=== PATIENT | male | born 1945 | race Caucasian/White ===

== ENCOUNTER → 2018-09-17 | Outpatient (CLI) | payer MEDICARE, BC ==
--- NOTE | 2018-09-17 12:39 | XR ---
EXAMINATION TYPE: XR chest 2V DATE OF EXAM: 09/17/2018 COMPARISON: None INDICATION: Pain right upper chest due to coughing TECHNIQUE: Frontal and lateral views of the chest are obtained. FINDINGS: There is a 0.6 cm density within the periphery of the right midlung may represent small granuloma. Co nfirmation of stability over the course of 2 years is recommended. A faint density may be at the lef t lung base. Summation shadow, nipple shadow, pleural plaque, or intraparenchymal density is not excl uded. Follow-up chest x-ray in 3 months is recommended. No pneumothorax is evident. Heart size is normal. Pulmonary vasculature is normal. No displaced rib fractures are evident. IMPRESSION: 1. No acute process identified. 2. Small nodule within additional left basilar density of uncertain significance. Short-term follow-u p chest x-ray in 3 months is recommended.
--- NOTE | 2018-09-17 12:40 | XR ---
EXAMINATION TYPE: XR ribs RT DATE OF EXAM: 09/17/2018 COMPARISON: Chest x-ray same date HISTORY: Chest pain with coughing TECHNIQUE: 2 view right ribs FINDINGS: No acute displaced fractures are evident. No pneumothorax is evident. Suspected granuloma w ithin the right peripheral lung may be present. IMPRESSION: 1. No acute rib abnormality
== END | disposition home or self-care (01) ==
LOC: RADXRMAIN 11:40
PROVIDERS: ATTEND Internal Medicine
DX: R91.1 Solitary pulmonary nodule (principal); R07.9 Chest pain, unspecified
CPT/HCPCS: 71046

== ENCOUNTER → 2018-10-02 | Outpatient (CLI) | payer MEDICARE, BC ==
--- NOTE | 2018-10-03 04:43 | CT ---
EXAMINATION TYPE: CT chest w con DATE OF EXAM: 10/02/2018 COMPARISON: Radiograph 09/17/2018 HISTORY: 73-year-old male abnormal findings chest xray TECHNIQUE: Contiguous axial scanning of the chest after the administration of 100 mL of Isovue 300. Coronal/sagittal reconstructions performed. CT DLP: 730mGycm. Automatic exposure control utilized for a dose reduction. FINDINGS: Heart normal size with trace anterior basilar pericardial fluid. Coronary vessel calcifications are p resent. Aorta normal caliber with pooling configuration to the aortic arch. A few nonenlarged mediastinal lymph nodes are demonstrated. No thoracic lymphadenopathy by CT size cr iteria. Small calcified right infrahilar lymph nodes are noted. Mild diffuse bronchial wall thickening. The questioned right mid lung nodule on radiographs correspon ds to a calcified granuloma An additional tiny calcified granuloma at the peripheral left base may correspond to the second radio graphic nodule. No suspicious pulmonary nodule or mass is identified. Prominent dependent atelectasis posterior lung bases. There may be mild underlying interstitial fibro tic change. Noncalcified 4 mm peripheral right basilar pulmonary nodule, axial image 38 to be reassessed at [facility]. No consolidation or pleural effusion. There is a small hiatal hernia. There is a pulsion diverticulum along the right lateral aspect of the lower esophagus measuring 2.8 cm and filled with debris. Visualized upper abdomen shows a calcified granuloma posterior liver and scattered within the spleen with a tiny hilar splenule. Bones: There is some bony irregularity along the lateral aspect of the fourth right rib that may repr esent old posttraumatic sequela. There is a slightly expansile, lytic lesion within the right pedicle, lamina, and transverse process of T4, refer to sagittal image 60 and axial image 17. IMPRESSION: 1. Slightly expansile, lytic lesion within the right posterior elements of T4. Metastatic disease nee ds to be excluded. Correlate with appropriate further oncologic workup. 2. Some bony irregularity involving the lateral aspect of the fourth right-sided rib could represent chronic posttraumatic sequela or a second subtle lesion. 3. Mild diffuse bronchial wall thickening suggests bronchitis or chronic asthma. There is prior granu lomatous disease with the questioned pulmonary nodule seen on 09/17/2018 radiographs corresponding to calcified granulomas. 4. A 4 mm noncalcified right basilar pulmonary nodule is nonspecific and should be reassessed at [facility] ow-up. 5. Small hiatal hernia. There appears to be a 2.8 cm debris-filled pulsion diverticulum along the rig ht lateral aspect of the lower esophagus. Consider direct visualization.
== END | disposition home or self-care (01) ==
LOC: RADCTMAIN 15:59
PROVIDERS: ATTEND Internal Medicine
DX: M95.4 Acquired deformity of chest and rib (principal); K44.9 Diaphragmatic hernia without obstruction or gangrene; R91.8 Other nonspecific abnormal finding of lung field; R91.1 Solitary pulmonary nodule
CPT/HCPCS: 82565; 84520; 71260; 36415; Q9967

== ENCOUNTER → 2018-11-08 | Outpatient (CLI) | payer MEDICARE, BC ==
--- NOTE | 2018-11-08 14:06 | NM ---
EXAMINATION TYPE: NM bone scan whole body DATE OF EXAM: 11/08/2018 COMPARISON: NONE HISTORY: Abnormal findings of outside imaging per order. Recent abnormal CT. Back pain per patient. Delayed whole-body scanning was performed following the injection of 23.2 mCi Tc 99m MDP. Images acq uired 3 hours post injection. Whole body images as well as additional images of the head and thorax a bdomen and pelvis in multiple projections are acquired. FINDINGS: No suspicious radiotracer uptake at area of clinical concern right T4 posterior elements but area rem ains suspicious and is noted lytic. Increased radiotracer uptake right anterolateral third or fourth rib correlates with CT suspicion for healing nondisplaced rib fracture. Also identified subtle increased radiotracer uptake posterior lat eral right ninth rib presumed healing nondisplaced fracture without definitive corresponding lesion o n CT. Lucency from right hip arthroplasty is present. Mild symmetric increased uptake bilateral knee joints likely reflects product of degenerative change. IMPRESSION: As above. Lytic lesion does not show increased radiotracer uptake but remain suspicious f or myeloma or lytic metastatic disease. Clinical correlation recommended. Healing nondisplaced right- sided rib fractures are suspected.
--- NOTE | 2018-11-08 14:26 | XR ---
EXAMINATION TYPE: XR orbit complete bilateral DATE OF EXAM: 11/08/2018 COMPARISON: NONE HISTORY: History of torn retina with possible scleral buckle, pre-MRI study. TECHNIQUE: Complete orbital with Pace and Sosa as well as true lateral projection obtained. FINDINGS: No suspicious metallic intraorbital foreign body is seen to prevent MRI study on images obt ained. IMPRESSION: As above.
== END | disposition home or self-care (01) ==
LOC: RADNMMAIN 09:46
PROVIDERS: ATTEND Internal Medicine Hematology & Oncology
DX: M89.8X8 Other specified disorders of bone, other site (principal); R93.89 Abnormal findings on diagnostic imaging of other specified body structures; Z71.3 Dietary counseling and surveillance
CPT/HCPCS: 70200; 78306; A9503

== ENCOUNTER → 2018-11-08 | Outpatient (CLI) | payer MEDICARE, BC ==
--- NOTE | 2018-11-09 07:55 | MR ---
EXAMINATION TYPE: MR thoracic spine wo/w con DATE OF EXAM: 11/08/2018 COMPARISON: CT chest October 02, 2018. Same day whole body bone scan. HISTORY: Back pain, abnormal imaging on pacs TECHNIQUE: Multiplanar, multisequence imaging of thoracic spine is performed without contrast FINDINGS: Spinal cord shows normal course, caliber, and signal as it courses the thoracic spine. Ve rtebral body heights and alignment are satisfactory. Disc space heights are maintained. No suspiciou s large posterior disc herniations are seen on sagittal images. Corresponding to CT there is expansil e lesion of diminished T1 signal and slight increased T2 signal involving right lateral elements with posterior extension at T4 level showing homogeneous enhancement on postcontrast images seen best sag ittal image 6 through 15. No definitive additional bony lesions are present which correlates with CT. Review of the axial images confirms expansile enhancing right T4 lesion involving the pedicle and lat eral elements including transverse process extending into the posterior lamina with mass effect along the lateral margin of the spinal canal on axial image 10. There is tiny left paracentral disc protrusion mildly effacing anterolateral thecal sac at T4-T5 leve l on axial image 8. There is tiny left paracentral disc protrusion mildly effacing anterior thecal sa c at T5-T6 level on axial image 4. There are mild early facet degenerative changes in the lower thora cic spine with ligamentum flavum hypertrophy also seen. Visualized portion of upper abdomen and thora x show no suspicious abnormality. Dependent atelectasis is seen in both lower lungs. IMPRESSION: Confirmation of suspicious expansile enhancing osseous lesion centered right T4 lateral e lements with some mass effect on the lateral margin of spinal canal. Consider lytic metastatic disea se or myeloma involvement. Clinical correlation advised.
== END | disposition home or self-care (01) ==
LOC: RADMRIMAIN 15:37
PROVIDERS: ATTEND Internal Medicine Hematology & Oncology
DX: M89.9 Disorder of bone, unspecified (principal); M53.9 Dorsopathy, unspecified
CPT/HCPCS: 72157; A9585

== ENCOUNTER → 2018-11-16 | Outpatient (CLI) | payer MEDICARE, BC ==
--- NOTE | 2018-11-19 11:06 | PE ---
Nuclear medicine PET/CT HISTORY: Multiple myeloma, initial correlation chest CT 10/02/2018, MR thoracic spine 11/08/2017 Patient received 11.5 mCi F-18 FDG intravenously in delayed scanning was performed through the body. Localization and attenuation correction CT was performed. Neck and chest: No suspicious adenopathy. Calcified subpleural nodule present in the right lower lobe , there are calcified right hilar nodes consistent with old granulomatous disease. There is diverticu lum noted in the distal esophagus to the right midline as on prior CT likely containing secretions or food. Coronary calcifications are present. ABDOMEN: Calcification is seen within the spleen. No retroperitoneal adenopathy. Small hiatal hernia noted. No suspicious hypermetabolic uptake. Diverticular change noted in the sigmoid colon. Streak ar tifact noted from patient's right hip prosthesis. Aorta shows atheromatous change. Osseous structures: Anterior third with associated hypermetabolic uptake, SUV 3.4, there is expansile lesion and suggestion of some local abnormal soft tissue, rib shows a probable pathologic fracture. Suspect possible lucency in the lateral mass effect C2. The lytic lesion at T4 does not show associat ed hypermetabolic uptake. There is a rib fracture on the right at T9 posterior laterally without defi nite hypermetabolic uptake. Suspect small punched-out lesions in several ribs without associated hype rmetabolic uptake. Possible posterior rib fractures on the left fifth rib, sixth rib, seventh rib. Ly tic appearance present at the spinous process of L3. IMPRESSION: Findings compatible with patient's history of multiple myeloma. Additional findings above .
== END | disposition home or self-care (01) ==
LOC: RADPETMAIN 16:46
PROVIDERS: ATTEND Internal Medicine Hematology & Oncology
DX: C90.00 Multiple myeloma not having achieved remission (principal); R91.1 Solitary pulmonary nodule; K22.5 Diverticulum of esophagus, acquired; D73.89 Other diseases of spleen; K44.9 Diaphragmatic hernia without obstruction or gangrene; I70.0 Atherosclerosis of aorta; S22.31XA Fracture of one rib, right side, initial encounter for closed fracture; R93.5 Abnormal findings on diagnostic imaging of other abdominal regions, including retroperitoneum
CPT/HCPCS: 78816; A9552

== ENCOUNTER 2018-11-18 05:58 | Day surgery (SDC) | payer MEDICARE, BC ==
[2018-11-15 09:52] VITALS: BMI 31.6
[~2018-11-18 05:58] MED LIST: LIDOCAINE 1% 20 ML VIAL (10MG/ML) FOR IV START INTRADERMA PRN
[2018-11-18 06:30] VITALS: RESP 18; TEMP 97.3
[2018-11-18 06:44] LABS: Glucose,Whole Blood 130 mg/dL (75-99)
[2018-11-18] MEDS: LACTATED RINGERS 1,000 ML IV SCH ×2 (06:46→07:05)
[2018-11-18] MEDS ORDERED: PROPOFOL 10 MG/ML 20 ML VIAL IV ONE (07:07)
[2018-11-18] MEDS ORDERED: LIDOCAINE 2% INJ 20 MG/ML SQ ONE (07:15)
[2018-11-18] MEDS ORDERED: IV FLUID CONTINUATION 1,000 ML IV ONE (07:28)
[2018-11-18 08:11] VITALS: BP 125/77; PULSE 64
[2018-11-18 08:12] LABS: Basophils % (A) 0 %; Eosinophils # (A) 0.1 k/uL (0-0.7); Eosinophils % (A) 3 %; HGB 12.8 gm/dL (13.0-17.5); Lymphocytes % (A) 52 %; MCH 32.6 pg (25.0-35.0); MCHC 33.8 g/dL (31.0-37.0); MCV 96.3 fL (80.0-100.0); Mean Platelet Volume 8.4; Monocytes # (A) 0.2 k/uL (0-1.0); Monocytes % (A) 6 %; Neutrophils # (A) 1.5 k/uL (1.3-7.7); Neutrophils % (A) 37 %; Platelet Count 194 k/uL (150-450); RBC 3.94 m/uL (4.30-5.90); RDW 14.1 % (11.5-15.5); WBC 3.9 k/uL (3.8-10.6)
--- NOTE | 2018-11-18 08:37 | PCN ---
PROCEDURE NOTE PROCEDURE: Bone marrow aspirate and biopsy. INDICATION: Initial diagnosis of multiple myeloma. After obtaining consent from the patient, the procedure was performed in the endoscopy suite and anesthesia performed by anesthesia team. The patient was put in left lateral decubitus position. The right posterior superior iliac crest was localized. Skin was cleansed with ChloraPrep, all sterile procedures were followed, Two mL of 1% lidocaine was used for local Xylocaine was used for local anesthetic, 100 needed inserted 15 mL of aspirate and about 1.5 cm core biopsy was obtained without any difficulties. Patient tolerated the procedure very well without any immediate complications. MMODL / IJN: [id number] /
== END 2018-11-18 08:12 | disposition home or self-care (01) ==
LOC: OR 05:58
PROVIDERS: ATTEND Internal Medicine Hematology & Oncology
DX: C90.00 Multiple myeloma not having achieved remission (principal); D64.9 Anemia, unspecified; I10 Essential (primary) hypertension; Z79.82 Long term (current) use of aspirin; Z79.899 Other long term (current) drug therapy; Z96.641 Presence of right artificial hip joint; Z87.891 Personal history of nicotine dependence
CPT/HCPCS: 85025; 38222; J2001; J2704

== ENCOUNTER → 2018-12-16 | Outpatient (CLI) | payer MEDICARE, BC ==
--- NOTE | 2018-12-16 11:05 | US ---
EXAMINATION TYPE: US venous doppler duplex UE LT DATE OF EXAM: 12/16/2018 COMPARISON: NONE CLINICAL HISTORY: R22.32 Left upper arm swelling. Pain and edema left lower arm for 2 days SIDE PERFORMED: left Left Arm: No evidence of DVT as visualized Grayscale, color doppler, spectral doppler imaging performed of the deep veins of the left upper extr emity. There is normal flow, compressibility and vascular waveforms. IMPRESSION: No evidence of acute deep or superficial venous thrombosis in the left upper extremity.
== END | disposition home or self-care (01) ==
LOC: RADUSWWP 10:06
PROVIDERS: ATTEND Internal Medicine Hematology & Oncology
DX: R22.32 Localized swelling, mass and lump, left upper limb (principal)

== ENCOUNTER → 2021-01-14 | Outpatient (CLI) | payer MEDICARE ==
--- NOTE | 2021-01-17 07:03 | PE ---
EXAMINATION TYPE: PET CT fusion skull to thigh DATE OF EXAM: 01/14/2021 COMPARISON: Prior PET/CT November 16, 2018 HISTORY: Multiple myeloma currently on chemotherapy. Involvement in the ribs and T2 spine with radi ation treatment. TECHNIQUE: Following the intravenous administration of 9.89 mCi of F-18 FDG, whole body images are p erformed from the skull base to the bottom of feet. Images are reviewed on the computer in the coron al, axial, and sagittal planes. Reconstructed rotating images are created on independent workstation and reviewed on the computer. A localization and attenuation correction CT is performed in conjunc tion with the PET scan. Blood glucose level equals 97. SCAN: Subsequent Scan FINDINGS: SKULL BASE AND NECK: No new areas of abnormal hypermetabolic uptake. Current study does not include entire head. CHEST, MEDIASTINUM, AND HILAR REGION: No new areas of abnormal hypermetabolic uptake. ABDOMEN AND PELVIS: Normal excretion. Nonspecific distal bowel uptake. No new areas of abnormal hyper metabolic uptake. OSSEOUS STRUCTURES: Mild uptake left shoulder joint presumed postinflammatory on current study. Inter suraj resolution of abnormal hypermetabolic uptake anterior right third rib. No new areas of abnormal h ypermetabolic uptake. Possible scattered lytic lesions less well seen on PET CT versus traditional CT study. LOWER EXTREMITIES: Increased uptake inferior left foot hindfoot and midfoot level appears to correspond to areas of musc le with additional area of abnormal uptake anterolateral left hindfoot and midfoot region image 204 a lso favors muscular uptake, correlate for active inflammation. OTHER CT: Coronary artery calcification and/or stents redemonstrated. Calcified right hilar lymph nod es redemonstrated. Evidence of old granulomatous disease with subpleural calcified nodule axial image 103 redemonstrated. Persistent eccentric distal esophageal diverticulum with air-fluid level. Stable scattered splenic calcifications consistent with product of old granulomatous disease. Diverti culi left and sigmoid colon redemonstrated. Enlarged prostate consistent with BPH. Metallic artifact from right hip arthroplasty causes streak artifact limiting evaluation of pelvic structures. IMPRESSION: No new areas of abnormal hypermetabolic uptake to suggest active myeloma recurrence. Susp ect inflammatory muscular change in region of left foot, correlate clinically.
== END | disposition home or self-care (01) ==
LOC: RADPETMAIN 08:19
PROVIDERS: ATTEND Internal Medicine Hematology & Oncology
DX: C90.00 Multiple myeloma not having achieved remission (principal)
CPT/HCPCS: 78815; A9552

== ENCOUNTER → 2021-03-28 | Outpatient (CLI) | payer MEDICARE ==
--- NOTE | 2021-03-28 15:02 | US ---
EXAMINATION TYPE: US carotid duplex BILAT DATE OF EXAM: 03/28/2021 COMPARISON: NONE CLINICAL HISTORY: R42 DIZZINESS. Dizziness EXAM MEASUREMENTS: RIGHT: Peak Systolic Velocity (PSV) cm/sec ----- Right CCA: 91.0 ----- Right ICA: 91.0 ----- Right ECA: 147.6 ICA/CCA ratio: 1.0 RIGHT: End Diastole cm/sec ----- Right CCA: 16.9 ----- Right ICA: 16.9 ----- Right ECA: 14.0 LEFT: Peak Systolic Velocity (PSV) cm/sec ----- Left CCA: 89.5 ----- Left ICA: 95.3 ----- Left ECA: 101.1 ICA/CCA ratio: 1.1 LEFT: End Diastole cm/sec ----- Left CCA: 18.3 ----- Left ICA: 21.2 ----- Left ECA: 0 VERTEBRALS (direction of flow): Right Vertebral: Antegrade Left Vertebral: Antegrade Rhythm: Normal No significant stenosis seen IMPRESSION: No sonographic evidence for hemodynamically significant stenosis in the carotid arteries. Criteria for Assigning % of Stenosis / Diameter reduction (Estimation based on the indirect measurements of the internal carotid artery velocities (ICA PSV). 1. Normal (no stenosis)=ICA PSV < 125 cm/s: ratio < 2.0: ICA EDV<40 cm/s. 2. Less than 50% stenosis=ICA PSV < 125 cm/s: ratio < 2.0: ICA EDV<40 cm/s. 3. 50 to 69% stenosis=ICA PSV of 125 to 230 cm/s: ration 2.0 ? 4.0: ICA EDV 40-100 cm/s. 4. Greater than 70% stenosis to near occlusion= ICA PSV > 230 cm/s: ratio > 4.0: ICA EDV > 100 cm/s. 5. Near occlusion= ICA PSV velocities may be low or undetectable: variable ratio and ICA EDV. 6. Total occlusion=unable to detect flow.
--- NOTE | 2021-03-29 08:01 | ECHOF ---
Referral Reason:R42 Dizziness MEASUREMENTS -------- HEIGHT: 180.3 cm WEIGHT: 99.8 kg BP: RVIDd: 2.5 cm (< 3.3) IVSd: 1.2 cm (0.6 - 1.1) LVIDd: 4.2 cm (3.9 - 5.3) LVPWd: 1.1 cm (0.6 - 1.1) IVSs: 1.8 cm LVIDs: 1.0 cm LVPWs: 1.7 cm LAESV Index (A-L): 15.90 ml/m Ao Diam: 3.4 cm (2.0 - 3.7) AV Cusp: 2.1 cm (1.5 - 2.6) LA Diam: 3.0 cm (2.7 - 3.8) MV EXCURSION: 16.009 mm (> 18.000) MV EF SLOPE: 51 mm/s (70 - 150) EPSS: 0.5 cm MV E Mao: 0.61 m/s MV DecT: 182 ms MV A Mao: 0.71 m/s MV E/A Ratio: 0.86 AR PHT: 532 ms RAP: 15.00 mmHg RVSP: 27.86 mmHg FINDINGS -------- This was a technically adequate study. The left ventricular size is normal. There is mild concentric left ventricular hypertrophy. Overa ll left ventricular systolic function is normal with, an EF between 55 - 60 %. The diastolic fillin g pattern is normal for the age of the patient 7.60. The right ventricle is normal in size. The left atrial size is normal. Normal LA size by volume 22+/-6 ml/m2. The right atrial size is normal. The aortic valve is trileaflet and appears structurally normal. Trace amount of aortic regurgitatio n. The mitral valve is normal. Mild mitral regurgitation is present. The tricuspid valve appears structurally normal. Mild tricuspid regurgitation present. Right vent ricular systolic pressure is normal at < 35 mmHg. There is no pulmonic regurgitation present. The aortic root size is normal. The inferior vena cava is mildly dilated. There is no pericardial effusion. CONCLUSIONS -------- 1. The left ventricular size is normal. 2. There is mild concentric left ventricular hypertrophy. 3. Overall left ventricular systolic function is normal with, an EF between 55 - 60 %. 4. Trace amount of aortic regurgitation. 5. Mild mitral regurgitation is present. 6. Mild tricuspid regurgitation present. 7. The inferior vena cava is mildly dilated. SPECIAL EDUCATION TEACHING ASSISTANT: Mary Darling RDCS
== END | disposition home or self-care (01) ==
LOC: RADECHMAIN 13:52
PROVIDERS: ATTEND Internal Medicine
DX: I08.3 Combined rheumatic disorders of mitral, aortic and tricuspid valves (principal); R42 Dizziness and giddiness
CPT/HCPCS: 93306; 93880

== ENCOUNTER → 2021-04-12 | Outpatient (CLI) | payer MEDICARE | END | disposition home or self-care (01) | DX: C61 Malignant neoplasm of prostate (principal) | CPT/HCPCS: 36415; 84153 ==

== ENCOUNTER → 2022-01-20 | Outpatient (CLI) | payer MEDICARE ==
[~2022-01-20] MED LIST changes: -LIDOCAINE 1% 20 ML VIAL (10MG/ML) FOR IV START INTRADERMA PRN; +TIXAGEVIMAB/CILGAVIMAB (EUA) 300 MG/3 ML COMBO.PKG IM NR
[2022-01-20 10:00] VITALS: RESP 16; TEMP 98.2
[2022-01-20 10:43] VITALS: BP 121/71; PULSE 74
== END ==
LOC: PROCWHC3 09:10
PROVIDERS: ATTEND Internal Medicine Hematology & Oncology
DX: Z92.21 Personal history of antineoplastic chemotherapy (principal); Z87.891 Personal history of nicotine dependence
CPT/HCPCS: 96372; Q0220

== ENCOUNTER → 2023-09-05 | Outpatient (CLI) | payer MEDICARE ==
--- NOTE | 2023-09-05 10:16 | XR ---
EXAMINATION TYPE: XR chest 2V DATE OF EXAM: 09/05/2023 10:12 AM CLINICAL INDICATION:Male, 78 years old with history of C90.00 MULTIPLE MYELOMA NOT HAVI; COMPARISON: Chest radiographs from 09/17/2018 TECHNIQUE: XR chest 2V Frontal and lateral views of the chest. FINDINGS: Lungs/Pleura: There is no evidence of left pleural effusion, focal consolidation, or pneumothorax. S table right midlung calcified granuloma. Left lower lung nodular density on prior is not visualized. This could represent a nipple on the prior exam. Blunting of the right costophrenic angle. Pulmonary vascularity: Unremarkable. Heart/mediastinum: Cardiomediastinal silhouette is unremarkable. Musculoskeletal: No acute osseous pathology. IMPRESSION: Small right pleural effusion otherwise no acute process.
== END | disposition home or self-care (01) ==
LOC: RADXRMAIN 09:51
PROVIDERS: ATTEND Internal Medicine Hematology & Oncology
DX: C90.00 Multiple myeloma not having achieved remission (principal); J90 Pleural effusion, not elsewhere classified; G62.0 Drug-induced polyneuropathy; R19.7 Diarrhea, unspecified; Z71.3 Dietary counseling and surveillance
CPT/HCPCS: 71046

== ENCOUNTER → 2023-09-06 | Outpatient (CLI) | payer MEDICARE ==
--- NOTE | 2023-09-09 12:17 | PE ---
EXAMINATION TYPE: PET CT fusion skull to thigh DATE OF EXAM: 09/06/2023 CLINICAL INDICATION:Male, 78 years old with history of C90.00 multiple myeloma; TECHNIQUE: Following the intravenous administration of 9.6 mCi of F-18 FDG, whole body images are p erformed from the skull base to the midthigh. Images are reviewed on the computer in the coronal, ax ial, and sagittal planes. Reconstructed rotating images are created on independent workstation and r eviewed on the computer. A non-contrast CT is performed in conjunction with the PET scan. Glucose l evel 102 mg/dL CT DLP: 851 mGycm, Automated exposure control for dose reduction was used. COMPARISON: CT None, PET/CT 01/14/2021, FINDINGS: Mediastinal SUV mean is 1.4. Hepatic parenchyma SUV mean is 2.9. SKULL BASE AND NECK: No suspicious radiotracer activity. CHEST, MEDIASTINUM, AND HILAR REGION: Patchy uptake within the right lung laterally max SUV 7.85 ABDOMEN AND PELVIS: No suspicious radiotracer activity. MUSCULOSKELETAL STRUCTURES: No suspicious radiotracer activity. Is homogenous uptake throughout the o sseous structures. OTHER CT: Atherosclerosis of the arterial vasculature including the coronary arteries. There is patul ous esophagus large diverticulum on the right measuring up to 5.2 x 4.2 cm. Scattered colonic diverti cula. Fat-containing umbilical hernia. Right hip arthroplasty hardware appears intact. Fat-containing inguinal hernias bilaterally. IMPRESSION: 1. No suspicious radiotracer activity. 2. Uptake within the right lower lobe correlate for acute infectious process. 3. Diffuse osseous uptake compatible most compatible with colony stimulating factor medicine. 4. Large epiphrenic esophageal diverticulum. 5. Colonic diverticulosis. 6. Severe coronary artery atherosclerosis.
== END | disposition home or self-care (01) ==
LOC: RADXRMAIN 10:37
PROVIDERS: ATTEND Internal Medicine Hematology & Oncology
DX: C90.00 Multiple myeloma not having achieved remission (principal); K57.30 Diverticulosis of large intestine without perforation or abscess without bleeding; I25.10 Atherosclerotic heart disease of native coronary artery without angina pectoris; K22.5 Diverticulum of esophagus, acquired
CPT/HCPCS: 78815; A9552

== ENCOUNTER 2024-01-28 04:37 | Inpatient (IN) | payer MEDICARE ==
[2024-01-28] MEDS: DILTIAZEM DRIP BOLUS FROM BAG 1 MG SOLN IV ONE (05:13)
[2024-01-28] MEDS: SODIUM CHLORIDE 0.9% 500 ML 500 ML IV STA (05:13)
[2024-01-28] MEDS: DILTIAZEM 125 MG in SODIUM CHLORIDE 0.9% 100 ML IV SCH ×2 (05:15→10:30)
--- NOTE | 2024-01-28 05:44 | ED ---
General Adult HPI - General Chief complaint: Shortness of Breath Stated complaint: Difficulty Breathing Time Seen by Provider: 01/28/24 04:55 Source: patient, RN notes reviewed, old records reviewed Mode of arrival: wheelchair Limitations: no limitations - History of Present Illness Initial comments: Patient is a 78-year-old male with past medical history of multiple myeloma, hypertension, recently stopped therapy a few days ago presenting with shortness of breath. Has been having shortness of breath and feeling weak for 1 to 2 weeks. Shortness of breath has gotten worse over the last week, and significantly worse over the last few days. Denies any lower extremity edema, history of blood clots. Denies any chest pain with it. Denies nausea or vomiting. Became worse earlier this morning which is why they present for evaluation here in the department. Denies any fevers or cough. No known sick contacts. He is not usually on oxygen at home. He also has a history of anemia. Denies any hematochezia, melena, hematemesis. - Related Data Home Medications Medication Instructions Recorded Confirmed Terazosin [Hytrin] 5 mg PO BID 11/15/18 01/28/24 amLODIPine [Norvasc] 5 mg PO QAM 11/15/18 01/28/24 Aspirin EC [Ecotrin Low Dose] 81 mg PO DAILY 01/28/24 01/28/24 Colestipol HCl [Colestid] 2 gm PO BID 01/28/24 01/28/24 Allergies Allergy/AdvReac Type Severity Reaction Status Date / Time No Known Allergies Allergy Verified 01/28/24 07:03 Review of Systems ROS Statement: Those systems with pertinent positive or pertinent negative responses have been documented in the HPI. Review of Systems: CONST: Denies fever EYES: Denies blurry vision ENT: Denies nasal congestion C/V: Denies Chest pain RESP: Endorses shortness of breath GI: Denies abdominal pain : Denies dysuria SKIN: Denies rash. MSK: Denies joint pain. NEURO: Denies headache ROS Other: All systems not noted in ROS Statement are negative. Past Medical History Past Medical History: Cancer, Hypertension Additional Past Medical History / Comment(s): MULTIPLE MYELOMA, NEUROPATHY FEET, HANDS AND LEGS History of Any Multi-Drug Resistant Organisms: None Reported Past Surgical History: Adenoidectomy, Orthopedic Surgery, Tonsillectomy Additional Past Surgical History / Comment(s): RIGHT HIP REPLACEMENT, LEFT EYE SURGERY FOR SCLERAL BUCKLE, TOOTH IMPLANT Past Psychological History: No Psychological Hx Reported Smoking Status: Never smoker Past Alcohol Use History: None Reported Past Drug Use History: None Reported General Exam - General Exam Comments Initial Comments: General: Appears in respiratory distress with increased work of breathing. HEAD: Normal with no signs of head trauma. EYES: PERRLA, EOMI, conjunctiva normal, no discharge. ENT: Hearing grossly intact, normal oropharynx. Dry mucous membranes. Appears dehydrated. RESPIRATORY: Mildly coarse breath sounds bilaterally. No significant wheezing. Hypoxic on 4 L nasal cannula to 86%. Normoxic on nonrebreather to 95 to 100%. C/V: Irregular rate and rhythm. S1 and S2 auscultated, no edema, peripheral pulses 2+ and intact throughout ABD: Abd is soft, nontender, nondistended EXT: Normal range of motion, no obvious deformity SKIN: No rashes or lesions observed on exposed skin. NEURO: Alert and oriented x 4. No focal deficits. Limitations: no limitations Course Vital Signs 01/28/24 01/28/24 01/28/24 04:43 05:02 05:15 Temperature 97.8 F Pulse Rate 137 H Respiratory 22 Rate Blood Pressure 128/58 O2 Sat by Pulse 86 L 95 100 Oximetry Fraction of Inspired Oxygen (FIO2) 01/28/24 01/28/24 01/28/24 05:37 05:41 05:46 Temperature Pulse Rate 123 H Respiratory 38 H 48 H Rate Blood Pressure 133/74 O2 Sat by Pulse 99 Oximetry Fraction of 50 Inspired Oxygen (FIO2) 01/28/24 01/28/24 06:00 06:30 Temperature Pulse Rate 130 H 114 H Respiratory 36 H 38 H Rate Blood Pressure 143/73 135/72 O2 Sat by Pulse 100 100 Oximetry Fraction of Inspired Oxygen (FIO2) Medical Decision Making - Medical Decision Making Was pt. sent in by a medical professional or institution (, PA, GAS WELDER APPRENTICE, urgent care, hospital, or snf...) When possible be specific @ -No Did you speak to anyone other than the patient for history (EMS, parent, family, police, friend...)? What history was obtained from this source @ -Patient's assist with patient's past medical history. Did you review nursing and triage notes (agree or disagree)? Why? @ -I reviewed and agree with nursing and triage notes Were old charts reviewed (outside hosp., previous admission, EMS record, old EKG, old radiological studies, urgent care reports/EKG's, snf records)? Report findings @ -Old charts reviewed Differential Diagnosis (chest pain, altered mental status, abdominal pain women, abdominal pain men, vaginal bleeding, weakness, fever, dyspnea, syncope, headache, dizziness, GI bleed, back pain, seizure, CVA, palpatations, mental health, musculoskeletal)? @ -Differential Dyspnea: Coronary syndrome, arrhythmia, tamponade, asthma, COPD, pulmonary embolism, pneumonia, pneumothorax, pulmonary effusion, anaphylaxis, diabetic ketoacidosis, flailed chest, pulmonary contusion, diaphragmatic rupture, anemia, neuromuscular, this is not meant to be an all-inclusive list. EKG interpreted by me (3pts min.). @ -As above X-rays interpreted by me (1pt min.). @ -Chest x-ray reveals no obvious focal infiltrate, pneumothorax. CT interpreted by me (1pt min.). @ -CT PE negative for evidence of pulmonary embolism. Findings concerning for bronchitis with pneumonitis, infectious versus inflammatory. U/S interpreted by me (1pt. min.). @ -None done What testing was considered but not performed or refused? (CT, X-rays, U/S, labs)? Why? @ -None What meds were considered but not given or refused? Why? @ -Considered heparin however I will defer until oncology evaluates the patient. No obvious source of acute bleeding no significant thrombocytopenia, however no recent laboratory studies for comparison. Did you discuss the management of the patient with other professionals (professionals i.e. , PA, GAS WELDER APPRENTICE, lab, RT, psych nurse, foster care social worker, lead generator, teacher, infantry weapons officer, case managers)? Give summary @ -Discussed with ICU MLP James who accepted the admission. Was in agreement with the plan. After discussion with ICU, determined to change antibiotics to more broad- spectrum antibiotics Zosyn and vancomycin. Discussed with accepting physician Dr. Calvillo who was in agreement the plan for admission. Was smoking cessation discussed for >3mins.? @ -No Was critical care preformed (if so, how long)? @ -Yes, 37 minutes. Were there social determinants of health that impacted care today? How? (Homelessness, low income, unemployed, alcoholism, drug addiction, transportation, low edu. Level, literacy, decrease access to med. care, [facility], rehab)? @ -No Was there de-escalation of care discussed even if they declined (Discuss DNR or withdrawal of care, Hospice)? DNR status @ -No What co-morbidities impacted this encounter? (DM, HTN, Smoking, COPD, CAD, Cancer, CVA, ARF, Chemo, Hep., AIDS, mental health diagnosis, sleep apnea, mor bid obesity)? @ -Multiple myeloma, chronic anemia Was patient admitted / discharged? Hospital course, mention meds given and route, prescriptions, significant lab abnormalities, going to OR and other pertinent info. @ -Based on patient's presentation and physical exam, presents with acute on shortness of breath over the last week in the setting of chemotherapy and multiple myeloma. Patient was see CT PE. Will obtain cardiopulmonary workup. He has a new onset A-fib with RVR. Patient was placed on a BiPAP for his breathing. Oxygenation improved as he eventually did his work of breathing with respirations improved to 40 to 20s. A-fib with RVR improved on a Cardizem drip. Due to his history of anemia, heparin will be held for the time being. No obvious source of bleeding at this time. EKG shows A-fib with RVR. CT PE negative for PE but does show some infectious versus inflammatory changes. Chest x-ray shows no obvious focal infiltrate. Laboratory studies remarkable for a leukopenia of 1.7, anemia of 5.9, slightly decreased platelet count of 125. Patient has a lactic acidosis of 4.6 which I suspect is secondary to possible infectious process versus suspected hypoxia over the last few days. Troponin is indeterminate. BNP is within acceptable limits for the patient's age. Viral swabs negative. Patient will be transfused 1 unit of packed red blood cells. Patient met sepsis criteria at 0612. Antibiotics ordered. Blood cultures ordered. Lactic acid is 4.6 and we will continue to monitor. Patient is hemodynamically stable, with improvement in A-fib with RVR with heart rates now in the low 120s versus 140s. Will continue the Cardizem. Discussed the results with patient as well as . In agreement plan for admission. Patient is improved on the BiPAP in terms of his respirations and breathing at this time. Breathing treatments ordered for the patient. Cardiology consulted. Oncology consulted. I spoke with ICU MLP James who accepted the patient to the unit. I spoke with admitting physician Dr. Calvillo who accepted the patient onto his service. He peng will be held for the time being over the concern for the patient's anemia. Would like oncology to evaluate the patient first and cleared for heparin treatment for the A-fib with RVR, which I suspect onset secondary to underlying inflammatory or infectious process with the difficulty breathing. Echo was ordered for the patient. After discussion with ICU, determined to change antibiotics to more broad- spectrum antibiotics Zosyn and vancomycin. At time of admission, patient's oxygenation is improved, work of breathing is improved, heart rate is improved. Blood pressure remains within acceptable limits. Family was updated and they were in agreement this plan. Undiagnosed new problem with uncertain prognosis? @ -Yes Drug Therapy requiring intensive monitoring for toxicity (Heparin, Nitro, Insulin, Cardizem)? @ -Cardizem Were any procedures done? @ -No Diagnosis/symptom? @ -New onset A-fib with RVR, hypoxic respiratory failure, sepsis, pneumonitis, lactic acidosis, anemia in the setting of multiple myeloma with recent chemotherapy Acute, or Chronic, or Acute on Chronic? @ -Acute Uncomplicated (without systemic symptoms) or Complicated (systemic symptoms)? @ -Complicated Side effects of treatment? @ -No Exacerbation, Progression, or Severe Exacerbation? @ -No Poses a threat to life or bodily function? How? (Chest pain, [place], [place], pneumonia, PE, COPD, DKA, ARF, appy, cholecystitis, CVA, Diverticulitis, Homicidal, Suicidal, threat to staff... and all critical care pts) @ -Yes - Lab Data Result diagrams: 01/28/24 05:09 01/28/24 05:09 Lab Results 01/28/24 01/28/24 01/28/24 Range/Units 05:09 05:09 05:09 WBC 1.7 L (3.8-10.6) k/uL RBC 1.90 L (4.30-5.90) m/uL Hgb 5.9 L* (13.0-17.5) gm/dL Hct 17.7 L* (39.0-53.0) % MCV 93.1 (80.0-100.0) fL MCH 31.2 (25.0-35.0) pg MCHC 33.5 (31.0-37.0) g/dL RDW 16.4 H (11.5-15.5) % Plt Count 125 L (150-450) k/uL MPV 10.8 Neutrophils % 67 % Lymphocytes % 26 % Monocytes % 5 % Eosinophils % 0 % Basophils % 0 % Neutrophils # 1.1 L (1.3-7.7) k/uL Lymphocytes # 0.4 L (1.0-4.8) k/uL Monocytes # 0.1 (0-1.0) k/uL Eosinophils # 0.0 (0-0.7) k/uL Basophils # 0.0 (0-0.2) k/uL Manual Slide Review Performed RBC Morphology Normal Anisocytosis Slight PT 13.2 H (10.0-12.5) sec INR 1.3 H (<1.2) APTT 28.0 (22.0-30.0) sec D-Dimer 1.32 H (<0.60) mg/L FEU VBG pH (7.31-7.41) VBG pCO2 (37-51) mmHg VBG HCO3 (24-28) mmol/L Sodium 138 (137-145) mmol/L Potassium 4.1 (3.5-5.1) mmol/L Chloride 107 (98-107) mmol/L Carbon Dioxide 18 L (22-30) mmol/L Anion Gap 13 mmol/L BUN 37 H (9-20) mg/dL Creatinine 1.03 (0.66-1.25) mg/dL Est GFR (CKD-EPI)AfAm 81 (>60 ml/min/1.73 sqM) Est GFR (CKD-EPI)NonAf 70 (>60 ml/min/1.73 sqM) Glucose 235 H (74-99) mg/dL Plasma Lactic Acid Dre (0.7-2.0) mmol/L Calcium 7.9 L (8.4-10.2) mg/dL Magnesium 2.0 (1.6-2.3) mg/dL Total Bilirubin 2.9 H (0.2-1.3) mg/dL AST 16 L (17-59) U/L ALT 29 (4-49) U/L Alkaline Phosphatase 226 H (38-126) U/L Troponin I (0.000-0.034) ng/mL NT-Pro-B Natriuret Pep 1230 pg/mL Total Protein 5.7 L (6.3-8.2) g/dL Albumin 2.6 L (3.5-5.0) g/dL Influenza Type A (PCR) (Not Detectd) Influenza Type B (PCR) (Not Detectd) RSV (PCR) (Not Detectd) SARS-CoV-2 (PCR) (Not Detectd) Blood Type Blood Type Recheck Bld Type Recheck Status Antibody Screen Crossmatch Spec Expiration Date 01/28/24 01/28/24 01/28/24 Range/Units 05:09 05:09 05:09 WBC (3.8-10.6) k/uL RBC (4.30-5.90) m/uL Hgb (13.0-17.5) gm/dL Hct (39.0-53.0) % MCV (80.0-100.0) fL MCH (25.0-35.0) pg MCHC (31.0-37.0) g/dL RDW (11.5-15.5) % Plt Count (150-450) k/uL MPV Neutrophils % % Lymphocytes % % Monocytes % % Eosinophils % % Basophils % % Neutrophils # (1.3-7.7) k/uL Lymphocytes # (1.0-4.8) k/uL Monocytes # (0-1.0) k/uL Eosinophils # (0-0.7) k/uL Basophils # (0-0.2) k/uL Manual Slide Review RBC Morphology Anisocytosis PT (10.0-12.5) sec INR (<1.2) APTT (22.0-30.0) sec D-Dimer (<0.60) mg/L FEU VBG pH (7.31-7.41) VBG pCO2 (37-51) mmHg VBG HCO3 (24-28) mmol/L Sodium (137-145) mmol/L Potassium (3.5-5.1) mmol/L Chloride (98-107) mmol/L Carbon Dioxide (22-30) mmol/L Anion Gap mmol/L BUN (9-20) mg/dL Creatinine (0.66-1.25) mg/dL Est GFR (CKD-EPI)AfAm (>60 ml/min/1.73 sqM) Est GFR (CKD-EPI)NonAf (>60 ml/min/1.73 sqM) Glucose (74-99) mg/dL Plasma Lactic Acid Dre 4.6 H* (0.7-2.0) mmol/L Calcium (8.4-10.2) mg/dL Magnesium (1.6-2.3) mg/dL Total Bilirubin (0.2-1.3) mg/dL AST (17-59) U/L ALT (4-49) U/L Alkaline Phosphatase (38-126) U/L Troponin I 0.027 (0.000-0.034) ng/mL NT-Pro-B Natriuret Pep pg/mL Total Protein (6.3-8.2) g/dL Albumin (3.5-5.0) g/dL Influenza Type A (PCR) Not Detected (Not Detectd) Influenza Type B (PCR) Not Detected (Not Detectd) RSV (PCR) Not Detected (Not Detectd) SARS-CoV-2 (PCR) Not Detected (Not Detectd) Blood Type Blood Type Recheck Bld Type Recheck Status Antibody Screen Crossmatch Spec Expiration Date 01/28/24 01/28/24 Range/Units 05:45 06:05 WBC (3.8-10.6) k/uL RBC (4.30-5.90) m/uL Hgb (13.0-17.5) gm/dL Hct (39.0-53.0) % MCV (80.0-100.0) fL MCH (25.0-35.0) pg MCHC (31.0-37.0) g/dL RDW (11.5-15.5) % Plt Count (150-450) k/uL MPV Neutrophils % % Lymphocytes % % Monocytes % % Eosinophils % % Basophils % % Neutrophils # (1.3-7.7) k/uL Lymphocytes # (1.0-4.8) k/uL Monocytes # (0-1.0) k/uL Eosinophils # (0-0.7) k/uL Basophils # (0-0.2) k/uL Manual Slide Review RBC Morphology Anisocytosis PT (10.0-12.5) sec INR (<1.2) APTT (22.0-30.0) sec D-Dimer (<0.60) mg/L FEU VBG pH 7.38 (7.31-7.41) VBG pCO2 37 (37-51) mmHg VBG HCO3 22 L (24-28) mmol/L Sodium (137-145) mmol/L Potassium (3.5-5.1) mmol/L Chloride (98-107) mmol/L Carbon Dioxide (22-30) mmol/L Anion Gap mmol/L BUN (9-20) mg/dL Creatinine (0.66-1.25) mg/dL Est GFR (CKD-EPI)AfAm (>60 ml/min/1.73 sqM) Est GFR (CKD-EPI)NonAf (>60 ml/min/1.73 sqM) Glucose (74-99) mg/dL Plasma Lactic Acid Dre (0.7-2.0) mmol/L Calcium (8.4-10.2) mg/dL Magnesium (1.6-2.3) mg/dL Total Bilirubin (0.2-1.3) mg/dL AST (17-59) U/L ALT (4-49) U/L Alkaline Phosphatase (38-126) U/L Troponin I (0.000-0.034) ng/mL NT-Pro-B Natriuret Pep pg/mL Total Protein (6.3-8.2) g/dL Albumin (3.5-5.0) g/dL Influenza Type A (PCR) (Not Detectd) Influenza Type B (PCR) (Not Detectd) RSV (PCR) (Not Detectd) SARS-CoV-2 (PCR) (Not Detectd) Blood Type O Positive Blood Type Recheck O Pos Bld Type Recheck Status No Antibody Screen NEGATIVE Crossmatch See Detail Spec Expiration Date 01/31/20242304 - EKG Data -: EKG Interpreted by Me EKG Comments: 12-lead Electrocardiogram Interpretation Note EKG was reviewed and interpreted by myself. 12-lead ECG performed at 0452 is int erpreted by me as revealing A-fib with RVR at a rate of default value beats per minute. [place] is normal. QRS duration is 69 ms, QTc is 397 ms.. There were no ST or T wave abnormalities to suggest myocardial ischemia or injury. R wave progression across the precordium was satisfactory. By my interpretation this EKG is non-diagnostic for acute ischemia. Critical Care Time Critical Care Time: Yes Total Critical Care Time: 37 Disposition Clinical Impression: Sepsis, New onset a-fib, Anemia, Hypoxic respiratory failure, Pneumonitis, Lactic acidosis, Multiple myeloma Disposition: ADMITTED IP TO THIS [facility] Condition: Serious Time of Disposition: 06:44
[2024-01-28 05:48] LABS: ALT 29 U/L (4-49); AST 16 U/L (17-59); African American GFR (CKD) 81 (>60 ml/min/1.73 sqM); Albumin 2.6 g/dL (3.5-5.0); Alkaline Phosphatase 226 U/L (38-126); Anion Gap 13 mmol/L; Blood Urea Nitrogen 37 mg/dL (9-20); Calcium 7.9 mg/dL (8.4-10.2); Carbon Dioxide 18 mmol/L (22-30); Chloride 107 mmol/L (98-107); Glucose 235 mg/dL (74-99); Non-African American GFR(CKD) 70 (>60 ml/min/1.73 sqM); Potassium 4.1 mmol/L (3.5-5.1); Sodium 138 mmol/L (137-145); Total Bilirubin 2.9 mg/dL (0.2-1.3); Total Protein 5.7 g/dL (6.3-8.2)
[2024-01-28 05:51] LABS: Anisocytosis Slight; Basophils % (A) 0 %; Eosinophils % (A) 0 %; INR 1.3 (<1.2); Lymphocytes # (A) 0.4 k/uL (1.0-4.8); Lymphocytes % (A) 26 %; MCH 31.2 pg (25.0-35.0); MCHC 33.5 g/dL (31.0-37.0); MCV 93.1 fL (80.0-100.0); Mean Platelet Volume 10.8; Monocytes # (A) 0.1 k/uL (0-1.0); Monocytes % (A) 5 %; Neutrophils # (A) 1.1 k/uL (1.3-7.7); Neutrophils % (A) 67 %; Platelet Count 125 k/uL (150-450); Prothrombin Time 13.2 sec (10.0-12.5); RDW 16.4 % (11.5-15.5); WBC 1.7 k/uL (3.8-10.6)
[2024-01-28 05:56] LABS: NT-Pro-B-Type Natriuretic Pept 1230 pg/mL
--- NOTE | 2024-01-28 05:58 | CT ---
EXAM: CT Angiography Chest With Intravenous Contrast CLINICAL HISTORY: ITS.REASON CT Reason: dyspnea TECHNIQUE: Axial computed tomographic angiography images of the chest with intravenous contrast. CTDI is 15.3 mGy and DLP is 469.8 mGy-cm. This CT exam was performed using one or more of the following dose reduction techniques: automated exposure control, adjustment of the mA and/or kV according to patient size, and/or use of iterative reconstruction technique. MIP reconstructed images were created and reviewed. COMPARISON: Comparison made to chest x-ray from January 28, 2024. FINDINGS: Pulmonary arteries: Unremarkable. No pulmonary embolism. Aorta: No acute findings. No thoracic aortic aneurysm. Lungs: Bronchitis with pneumonitis with prominent centrilobular nodules in the lower lobes and right middle lobe. Tiny calcified granuloma in the right middle lobe. No mass. No consolidation. Pleural space: Unremarkable. No significant effusion. No pneumothorax. Heart: Unremarkable. No cardiomegaly. No significant pericardial effusion. No evidence of RV dysfunction. Bones/joints: No acute fracture. No dislocation. Soft tissues: Distal esophageal diverticulum. Lymph nodes: Prominent mediastinal lymph nodes. IMPRESSION: No evidence of pulmonary emboli. Findings concerning bronchitis with pneumonitis, which may be of infectious or inflammatory etiologies. No consolidation or pleural effusion.
[2024-01-28 05:59] LABS: HCT 17.7 % (39.0-53.0); HGB 5.9 gm/dL (13.0-17.5)
[2024-01-28 06:04] LABS: VBG PH 7.38 (7.31-7.41)
[2024-01-28] MEDS: LORazepam 2 MG/ML INJ IV STA ×2 (06:06→09:40)
[2024-01-28 06:22] LABS: RBC Morphology Normal
[2024-01-28] MEDS ORDERED: NALOXONE 0.4 MG/ML 1 ML VIAL IV PRN (06:25)
[2024-01-28] MEDS: SODIUM CHLORIDE 0.9% 1,000 ML IV STA ×2 (06:25)
--- NOTE | 2024-01-28 06:39 | XR ---
EXAM: XR Chest, 1 View CLINICAL HISTORY: ITS.REASON XR Reason: dyspnea TECHNIQUE: Frontal view of the chest. COMPARISON: Comparison made to prior CT angiogram of the chest from January 28, 2024. FINDINGS: Lungs: Mild to moderate peribronchial thickening of the central and lower lobe bronchi with increased interstitial opacities in the perihilar and lower lobe parenchyma. No consolidation. Pleural space: Unremarkable. No pneumothorax. Heart: Unremarkable. No cardiomegaly. Mediastinum: Unremarkable. Normal mediastinal contour. Bones/joints: Unremarkable. No acute fracture. IMPRESSION: Findings concerning for bronchitis with pneumonitis, which may be infectious or inflammatory nodes. No consolidation or pleural effusion.
[2024-01-28] MEDS ORDERED: VANCOMYCIN IV PER PHARMACY 1 EACH MISC MISCELLANE PRN (06:56)
[2024-01-28] MEDS: AZITHROMYCIN 500 MG in SODIUM CHLORIDE 0.9% 250 ML IVPB STA (06:56)
[2024-01-28 08:58] LABS: Glucose,Whole Blood 148 mg/dL (70-110)
[2024-01-28] MEDS: IPRATROPIUM-ALBUTEROL 3 ML NEB INHALATION PRN (09:01)
[2024-01-28 10:01] LABS: ABG Base Excess -1.1 mmol/L; ABG HCO3 24 mmol/L (21-25); ABG Oxygen Saturation 99.5 % (94-97); ABG PCO2 37 mmHg (35-45); ABG PH 7.41 (7.35-7.45); ABG PO2 154 mmHg (83-108); ABG TCO2 25 mmol/L (19-24); Allen Test Performed? Yes
[2024-01-28] MEDS: VANCOMYCIN 1,500 MG in SODIUM CHLORIDE 0.9% 500 ML 500 ML IVPB ONE (10:11)
[2024-01-28] MEDS: PIPERACILLIN-TAZOBACTAM 3.375 GM in SODIUM CHLORIDE 0.9% 100 ML IVPB SCH (10:15)
[2024-01-28 11:10] LABS: Appearance,Urine Clear (Clear); Bilirubin,Urine Negative (Negative); Blood,Urine Negative (Negative); Color,Urine Yellow; Glucose,Urine (UA) Negative (Negative); Hyaline Casts,Urine 10 /lpf (0-2); Ketones,Urine Negative (Negative); Leukocyte Esterase,Urine Negative (Negative); Mucus,Urine Rare /hpf; Nitrite,Urine Negative (Negative); PH, Urine 5.5 (5.0-8.0); Protein,Urine 1+ (Negative); RBC,Urine 1 /hpf (0-5); Specific Gravity,Urine 1.043 (1.001-1.035); Urobilinogen,Urine <2.0 mg/dL (<2.0); WBC,Urine 1 /hpf (0-5)
--- NOTE | 2024-01-28 12:31 | P.CNPUL ---
History of Present Illness Consult date: 01/28/24 Requesting physician: Maritza Calvillo Reason for consult: dyspnea, cough, hypoxemia, pneumonia, abnormal CXR/CT Chief complaint: Shortness of breath. History of present illness: Pulmonary consult dated January 28, 2024. 78-year-old male who was seen in the emergency department, beginning on January 27 , at 4:30 in the morning. The patient has a history of multiple myeloma, and hypertension. Over the last few days or so, the patient and his , have both been sick with an upper respiratory tract infection. It caused him to have significant shortness of breath, and weakness, over the last week or so. Because the shortness of breath was worsening, the patient decided to be evaluated in the emergency department. The patient was seen in the emergency department, by the ER physician, and was also briefly seen by my nurse practitioner. The patient is being admitted with the possibility of infection in the lung, and, anemia, as well as atrial fibrillation with RVR. Currently, the patient is on BiPAP, with settings of 14/6 and 50%. The patient is getting saline at 75 cc an hour. The patient's hemoglobin was 5.9. 1 unit of blood was ordered. The patient was placed on a Cardizem drip, at 5 mg an hour. He was also given vancomycin and Zosyn for possible pneumonia. Laboratory data includes a white count 1.7, hemoglobin 5.9, hematocrit 17.7, and a platelet count of 125,000. D-dimer was 1.32. Venous blood gases showed a pH of 7.38 and a pCO2 of 37. Sodium 138, potassium 4.1, chlorides 107, CO2 18, anion gap 13, BUN 37, and creatinine 1.03. Glucose was 235. Repeat was 148. Lactic acid was 7.6, calcium 7.9, albumin 2.6. N-terminal proBNP was 1230. Troponin was 0.027. Urine appears relatively benign. He tested negative for influenza A, B, RSV, and coronavirus. Chest x-ray shows some patchy pneumonitis. CT angiogram was negative for pulmonary embolism, but did show some changes of pneumonitis, particularly in the lower lobes the right middle lobe. Infectious, or inflammatory etiology was proposed. Review of Systems REVIEW OF SYSTEMS: CONSTITUTIONAL: Weakness NEUROLOGIC: [ Negative.] HEENT: [ Negative.] CARDIAC: [Negative.] PULMONARY: Shortness of breath, chest congestion, cough.] GI: [Negative.] : [Negative.] RHEUMATOLOGIC: [ Negative.] IMMUNOLOGIC: [ Negative.] ENDOCRINE: [Negative. ] DERMATOLOGIC: [Negative.] Past Medical History Past Medical History: Cancer, Hypertension Additional Past Medical History / Comment(s): MULTIPLE MYELOMA, NEUROPATHY FEET, HANDS AND LEGS History of Any Multi-Drug Resistant Organisms: None Reported Past Surgical History: Adenoidectomy, Orthopedic Surgery, Tonsillectomy Additional Past Surgical History / Comment(s): RIGHT HIP REPLACEMENT, LEFT EYE SURGERY FOR SCLERAL BUCKLE, TOOTH IMPLANT Past Psychological History: No Psychological Hx Reported Smoking Status: Never smoker Past Alcohol Use History: None Reported Past Drug Use History: None Reported - Past Family History Father Family Medical History: Cancer (gastric cancer) Mother Family Medical History: Cancer (glioblastoma) Sister(s) Family Medical History: Cancer (melanoma) Medications and Allergies Home Medications Medication Instructions Recorded Confirmed Type Terazosin [Hytrin] 5 mg PO BID 11/15/18 01/28/24 History amLODIPine [Norvasc] 5 mg PO QAM 11/15/18 01/28/24 History Aspirin EC [Ecotrin Low Dose] 81 mg PO DAILY 01/28/24 01/28/24 History Colestipol HCl [Colestid] 2 gm PO BID 01/28/24 01/28/24 History Allergies Allergy/AdvReac Type Severity Reaction Status Date / Time No Known Allergies Allergy Verified 01/28/24 07:03 Physical Exam Osteopathic Statement: *. No significant issues noted on an osteopathic s tructural exam other than those noted in the History and Physical/Consult. Vitals: Vital Signs Temp Pulse Resp BP Pulse Ox FiO2 01/28/24 12:00 97.6 F 103 H 51 H 139/80 100 50 01/28/24 11:00 109 H 41 H 132/76 99 50 01/28/24 10:30 106 H 46 H 120/77 98 50 01/28/24 10:25 97.4 F L 105 H 41 H 130/90 99 01/28/24 10:00 108 H 33 H 140/77 98 50 01/28/24 09:11 114 H 01/28/24 09:02 99 50 01/28/24 09:01 116 H 04/22/24 09:00 97.2 F L 117 H 41 H 145/77 98 50 01/28/24 08:59 50 01/28/24 08:08 97.4 F L 118 H 32 H 141/76 99 01/28/24 07:48 97.6 F 114 H 31 H 134/74 100 01/28/24 07:38 97.7 F 115 H 33 H 134/74 100 01/28/24 06:30 114 H 38 H 135/72 100 01/28/24 06:00 130 H 36 H 143/73 100 01/28/24 05:46 48 H 01/28/24 05:41 50 01/28/24 05:37 123 H 38 H 133/74 99 01/28/24 05:15 100 01/28/24 05:02 95 01/28/24 04:43 97.8 F 137 H 22 128/58 86 L Intake and Output 01/27/24 01/28/24 01/28/24 22:59 06:59 14:59 Intake Total 535 Output Total 400 Balance 135 Intake: Intake, IV Titration 225 Amount Sodium Chloride 0.9% 1, 225 000 ml @ 75 mls/hr IV . [id number] STA Rx#:[id number] Blood Product 310 Rc As-1 Unit 310 [id number] Output: Urine 400 Other: Voiding Method Indwelling Catheter Weight 90.718 kg 90.718 kg Mild respiratory distress, currently on BiPAP. HEENT examination is grossly unremarkable. Neck supple. Full range of motion. No adenopathy thyromegaly or neck vein distention. Cardiovascular examination reveals an irregular rhythm and rate. Heart rate about 110 bpm. Heart sounds are distant. No distinct murmur. Lungs reveal mostly clear breath sounds. Minimal scattered rhonchi. No wheezes or crackles. Saturations are 100%. Abdomen soft, with bowel sounds. No tenderness. Extremities are intact. No cyanosis clubbing or edema. Skin is without rash or lesion. Neurologic examination is brief but nonfocal. Results - Laboratory Findings CBC and BMP: 01/28/24 05:09 01/28/24 05:09 PT/INR, D-dimer PT 13.2 sec (10.0-12.5) H 01/28/24 05:09 INR 1.3 (<1.2) H 01/28/24 05:09 D-Dimer 1.32 mg/L FEU (<0.60) H 01/28/24 05:09 Abnormal lab findings: Abnormal Labs 01/28/24 01/28/24 01/28/24 05:09 05:09 05:09 WBC 1.7 L RBC 1.90 L Hgb 5.9 L* Hct 17.7 L* RDW 16.4 H Plt Count 125 L Neutrophils # 1.1 L Lymphocytes # 0.4 L PT 13.2 H INR 1.3 H D-Dimer 1.32 H VBG HCO3 Carbon Dioxide 18 L BUN 37 H Glucose 235 H POC Glucose (mg/dL) Plasma Lactic Acid Dre Calcium 7.9 L Total Bilirubin 2.9 H AST 16 L Alkaline Phosphatase 226 H Total Protein 5.7 L Albumin 2.6 L Ur Specific Sawyer Urine Protein Hyaline Casts Urine Mucus Crossmatch 01/28/24 01/28/24 01/28/24 05:09 05:45 06:05 WBC RBC Hgb Hct RDW Plt Count Neutrophils # Lymphocytes # PT INR D-Dimer VBG HCO3 22 L Carbon Dioxide BUN Glucose POC Glucose (mg/dL) Plasma Lactic Acid Dre 4.6 H* Calcium Total Bilirubin AST Alkaline Phosphatase Total Protein Albumin Ur Specific Sawyer Urine Protein Hyaline Casts Urine Mucus Crossmatch See Detail 01/28/24 01/28/24 08:57 10:54 WBC RBC Hgb Hct RDW Plt Count Neutrophils # Lymphocytes # PT INR D-Dimer VBG HCO3 Carbon Dioxide BUN Glucose POC Glucose (mg/dL) 148 H Plasma Lactic Acid Dre Calcium Total Bilirubin AST Alkaline Phosphatase Total Protein Albumin Ur Specific Sawyer 1.043 H Urine Protein 1+ H Hyaline Casts 10 H Urine Mucus Rare H Crossmatch - Diagnostic Findings Chest x-ray: image reviewed CT scan - chest: image reviewed Assessment and Plan Assessment: Acute hypoxemic respiratory failure, likely multifactorial, in part related to possible pneumonia, and exacerbated by new onset atrial fibrillation/RVR. History of multiple myeloma. Anemia, S/P packed red blood cell transfusion. Pancytopenia, secondary to chemotherapeutic agent. Anion gap metabolic acidosis. Lactic acidemia. History of hypertension. Plan: Plan dated January 28, 2024. The patient is admitted to the intensive care unit for further monitoring and management. The patient was seen in the emergency department initially, and transferred to the intensive care unit. The patient was placed on BiPAP, initially at 14/6 and 50%. Subsequent to that, respiratory therapy has made some adjustments. The patient's hemoglobin was only 5.9. The patient is to receive 1 unit of packed red blood cells. The patient continues on vancomycin and Zosyn. The patient also continues on Cardizem at 10 mg an hour. Initially it was only at 5 mg an hour. I also decided to give the patient a small dose of Ativan, to try to settle him down. The patient is receiving saline at 75 cc an hour. We did give the patient's an update. Time with Patient: Greater than 30
[2024-01-28 12:34] LABS: Reticulocyte % 0.5 % (0.5-2.0)
--- NOTE | 2024-01-28 15:33 | P.CRDCN ---
History of Present Illness History of present illness: HISTORY OF PRESENTING ILLNESS This is a pleasant 78-year-old male with history of multiple myeloma, hypertension. Patient normally is fairly healthy and takes multiple walks and is fairly active. He has been managed for his multiple myeloma and has been on Revlimid. This was started approximately 2 months ago. He presents secondary to multiple symptoms mainly of fevers, chills, cough and fatigue. Symptoms have been going on over the last few days along with his who is having similar symptoms. He has had worsening shortness breath and therefore presented to emergency department. He was found to be in respiratory distress and placed on BiPAP. He still had increased respiratory rate up into the 40s and 50s in addition was given Ativan and currently more sedated however or comfortable with respiratory rate more in the 30s. He had blood work including white blood cell count 1.7, hemoglobin 5.9, platelets 125. D-dimer was elevated at 1.[address] PE protocol was performed which showed no pulmonary embolism however pneumonitis. There is no significant pleural effusion. ProBNP 1230. Troponin mildly elevated at 0.02. He has no history of CAD. Cardiology was consult that secondary to Pamella anne. Initial EKG read out as atrial fibrillation however it is regular at parts and clearly P waves consistent with sinus rhythm/multifocal atrial tachycardia. Patient was having much increased ectopy however since sedation has clearly been sinus rhythm, sinus tachycardia. He was given blood transfusion somewhat more calm. REVIEW OF SYSTEMS At the time of my exam: CONSTITUTIONAL: +Fever + chills. CARDIOVASCULAR: Denies chest pain, +shortness of breath, no orthopnea, PND or palpitations. RESPIRATORY: Denies cough. GASTROINTESTINAL: Denies abdominal pain, diarrhea, constipation, nausea or vomiting. MUSCULOSKELETAL: Denies myalgias. NEUROLOGIC: Denies numbness, tingling or weakness. ENDOCRINE: Denies fatigue, weight change, polydipsia or polyurina. GENITOURINARY: Denies burning, hematuria or urgency with micturation. HEMATOLOGIC: Denies history of anemia or bleeding. PHYSICAL EXAMINATION Vital signs reviewed. CONSTITUTIONAL: No apparent distress, ill-appearing. HEENT: Head is normocephalic. Pupils are equal, round. Sclerae anicteric. Mucous membranes of the mouth are moist. No JVD. No carotid bruit. CHEST EXAMINATION: Lungs are clear to auscultation. No chest wall tenderness is noted on palpation or with deep breathing. HEART EXAMINATION: tachycardic, Regular rhythm. S1, S2 heard. No murmurs, gallops or rub. ABDOMEN: Soft, nontender. Positive bowel sounds. EXTREMITIES: 2+ peripheral pulses, no lower extremity edema and no calf tendern ess. NEUROLOGIC EXAMINATION: Patient is awake, alert and oriented x3. ASSESSMENT Acute on chronic respiratory failure, mainly related to pneumonia Sinus tachycardia/multifocal atrial tachycardia. No evidence of atrial fibrillation Hypertension Sepsis Pancytopenia Multiple myeloma Non-STEMI likely type II mechanism related to respiratory distress PLAN EKG is not consistent with atrial fibrillation and clearly P waves noted. This is more consistent with multifocal atrial tachycardia which can be seen in the setting of respiratory failure. Continue with current supportive care with most of his symptoms more related to sepsis and pneumonia. Continue Cardizem drip for now however likely wean or discontinue. Check 2-D echo to evaluate left ventricular function. Does not currently appear to be volume overloaded and continue with IV fluid hydration. Past Medical History Past Medical History: Cancer, Hypertension Additional Past Medical History / Comment(s): MULTIPLE MYELOMA, NEUROPATHY FEET, HANDS AND LEGS History of Any Multi-Drug Resistant Organisms: None Reported Past Surgical History: Adenoidectomy, Orthopedic Surgery, Tonsillectomy Additional Past Surgical History / Comment(s): RIGHT HIP REPLACEMENT, LEFT EYE SURGERY FOR SCLERAL BUCKLE, TOOTH IMPLANT Past Psychological History: No Psychological Hx Reported Smoking Status: Never smoker Past Alcohol Use History: None Reported Past Drug Use History: None Reported - Past Family History Father Family Medical History: Cancer (gastric cancer) Mother Family Medical History: Cancer (glioblastoma) Sister(s) Family Medical History: Cancer (melanoma) Medications and Allergies Home Medications Medication Instructions Recorded Confirmed Type Terazosin [Hytrin] 5 mg PO BID 11/15/18 01/28/24 History amLODIPine [Norvasc] 5 mg PO QAM 11/15/18 01/28/24 History Aspirin EC [Ecotrin Low Dose] 81 mg PO DAILY 01/28/24 01/28/24 History Colestipol HCl [Colestid] 2 gm PO BID 01/28/24 01/28/24 History Allergies Allergy/AdvReac Type Severity Reaction Status Date / Time No Known Allergies Allergy Verified 01/28/24 07:03 Physical Exam Vitals: Vital Signs Temp Pulse Resp BP Pulse Ox FiO2 01/28/24 15:00 104 H 40 H 128/67 98 50 01/28/24 14:00 104 H 52 H 126/75 98 50 01/28/24 13:00 101 H 45 H 132/74 98 50 01/28/24 12:00 97.6 F 103 H 51 H 139/80 100 50 01/28/24 11:00 109 H 41 H 132/76 99 50 01/28/24 10:30 106 H 46 H 120/77 98 50 01/28/24 10:25 97.4 F L 105 H 41 H 130/90 99 01/28/24 10:00 108 H 33 H 140/77 98 50 01/28/24 09:11 114 H 01/28/24 09:02 99 50 01/28/24 09:01 116 H 01/28/24 09:00 97.2 F L 117 H 41 H 145/77 98 50 01/28/24 08:59 50 01/28/24 08:08 97.4 F L 118 H 32 H 141/76 99 01/28/24 07:48 97.6 F 114 H 31 H 134/74 100 01/28/24 07:38 97.7 F 115 H 33 H 134/74 100 01/28/24 06:30 114 H 38 H 135/72 100 01/28/24 06:00 130 H 36 H 143/73 100 01/28/24 05:46 48 H 01/28/24 05:41 50 01/28/24 05:37 123 H 38 H 133/74 99 01/28/24 05:15 100 01/28/24 05:02 95 01/28/24 04:43 97.8 F 137 H 22 128/58 86 L Intake and Output 01/28/24 01/28/24 01/28/24 06:59 14:59 22:59 Intake Total 1260 75 Output Total 700 75 Balance 560 0 Intake: Intake, IV Titration 950 75 Amount Sodium Chloride 0.9% 1, 450 75 000 ml @ 75 mls/hr IV . [id number] STA Rx#:[id number] Vancomycin 1,500 mg In 500 Sodium Chloride 0.9% 500 ml 500 ml @ 167 mls/hr IVPB ONCE ONE Rx#: [id number] Blood Product 310 Rc As-1 Unit 310 [id number] Output: Urine 700 75 Other: Voiding Method Indwelling Catheter Weight 90.718 kg 90.718 kg Results 01/28/24 05:09 01/28/24 05:09 Cardiac Enzymes 01/28/24 01/28/24 01/28/24 Range/Units 05:09 05:09 12:03 AST 16 L (17-59) U/L Lactate Dehydrogenase 102 L (120-246) U/L Troponin I 0.027 (0.000-0.034) ng/mL Coagulation 01/28/24 Range/Units 05:09 PT 13.2 H (10.0-12.5) sec APTT 28.0 (22.0-30.0) sec CBC 01/28/24 Range/Units 05:09 WBC 1.7 L (3.8-10.6) k/uL RBC 1.90 L (4.30-5.90) m/uL Hgb 5.9 L* (13.0-17.5) gm/dL Hct 17.7 L* (39.0-53.0) % Plt Count 125 L (150-450) k/uL Comprehensive Metabolic Panel 01/28/24 Range/Units 05:09 Sodium 138 (137-145) mmol/L Potassium 4.1 (3.5-5.1) mmol/L Chloride 107 (98-107) mmol/L Carbon Dioxide 18 L (22-30) mmol/L BUN 37 H (9-20) mg/dL Creatinine 1.03 (0.66-1.25) mg/dL Glucose 235 H (74-99) mg/dL Calcium 7.9 L (8.4-10.2) mg/dL AST 16 L (17-59) U/L ALT 29 (4-49) U/L Alkaline Phosphatase 226 H (38-126) U/L Total Protein 5.7 L (6.3-8.2) g/dL Albumin 2.6 L (3.5-5.0) g/dL Current Medications Generic Name Dose Route Start Last Admin Trade Name Freq PRN Reason Stop Dose Admin Albuterol/Ipratropium 3 ml 01/28/24 06:25 01/28/24 09:01 Ipratropium-Albuterol 3 Ml Neb INHALATION 3 ml RT-Q4H PRN Administration Shortness Of Breath Or Wheezing Sodium Chloride 1,000 mls @ 75 mls/hr 01/28/24 06:24 01/28/24 06:25 Saline 0.9% IV 01/28/24 19:43 75 mls/hr .[id number] STA Administration Piperacillin Sod/Tazobactam 100 mls @ 25 mls/hr 01/28/24 08:00 01/28/24 10:15 Sod 3.375 gm/ Sodium Chloride IVPB 25 mls/hr Q8HR BRITTANY Administration Protocol Vancomycin HCl 1,500 mg/ 500 mls @ 167 mls/hr 01/28/24 20:00 Sodium Chloride IVPB Q12H BRITTANY Diltiazem HCl 125 mg/ Sodium 125 mls @ 0 mls/hr 01/28/24 10:15 Chloride IV .Q0M BRITTANY Protocol Per Protocol Naloxone HCl 0.2 mg 01/28/24 06:25 Naloxone 0.4 Mg/Ml 1 Ml Vial IV Q2M PRN Opioid Reversal Pantoprazole Sodium 40 mg 01/29/24 09:00 Pantoprazole 40 Mg/10 Ml Vial IV DAILY BRITTANY Intake and Output 01/28/24 01/28/24 01/28/24 06:59 14:59 22:59 Intake Total 1260 75 Output Total 700 75 Balance 560 0 Intake: Intake, IV Titration 950 75 Amount Sodium Chloride 0.9% 1, 450 75 000 ml @ 75 mls/hr IV . [id number] STA Rx#:[id number] Vancomycin 1,500 mg In 500 Sodium Chloride 0.9% 500 ml 500 ml @ 167 mls/hr IVPB ONCE ONE Rx#: [id number] Blood Product 310 Rc As-1 Unit 310 [id number] Output: Urine 700 75 Other: Voiding Method Indwelling Catheter Weight 90.718 kg 90.718 kg Patient Weight 01/29/24 06:59 Weight 90.718 kg 01/28/24 05:09 01/28/24 05:09
[2024-01-28] MEDS: IPRATROPIUM-ALBUTEROL 3 ML NEB INHALATION SCH (15:47)
[2024-01-28 16:26] LABS: % Iron Saturation 21.57 (15.00-50.00)
--- NOTE | 2024-01-28 16:41 | P.HPIM ---
History of Present Illness H&P Date: 01/28/24 Christopher Fonseca, is a 78-year-old male who presented to [facility] emergency room with a chief complaint of worsening shortness of breath. patient has a known history of multiple myeloma, followed by oncology. He was evaluated in the emergency room vital examination on presentation r evealed a temperature of 97.8 pulse 137 respiration 22 blood pressure 128/58 pulse ox 86% on 4 L nasal cannula Laboratory data reveals a white blood count of 1.7 hemoglobin 5.9 platelet count 125 d-dimer 1.3 ABG revealed a pH of 7.41 pCO2 37 by mouth to 154 BUN 37 creatinine 1.03 Testing in the emergency room revealed CT angiogram of the chest revealed no evidence of pulmonary embolism chest x-ray was suggestive of acute bronchitis with pneumonitis, EKG revealed evidence of atrial fibrillation with rapid ventricular response Patient was admitted to intensive care unit, he was started on IV antibiotics, pulmonary cardiology and oncology consultation were requested. Past Medical History Past Medical History: Cancer, Hypertension Additional Past Medical History / Comment(s): MULTIPLE MYELOMA, NEUROPATHY FEET, HANDS AND LEGS History of Any Multi-Drug Resistant Organisms: None Reported Past Surgical History: Adenoidectomy, Orthopedic Surgery, Tonsillectomy Additional Past Surgical History / Comment(s): RIGHT HIP REPLACEMENT, LEFT EYE SURGERY FOR SCLERAL BUCKLE, TOOTH IMPLANT Past Psychological History: No Psychological Hx Reported Smoking Status: Never smoker Past Alcohol Use History: None Reported Past Drug Use History: None Reported - Past Family History Father Family Medical History: Cancer (gastric cancer) Mother Family Medical History: Cancer (glioblastoma) Sister(s) Family Medical History: Cancer (melanoma) Medications and Allergies Home Medications Medication Instructions Recorded Confirmed Type Terazosin [Hytrin] 5 mg PO BID 11/15/18 01/28/24 History amLODIPine [Norvasc] 5 mg PO QAM 11/15/18 01/28/24 History Aspirin EC [Ecotrin Low Dose] 81 mg PO DAILY 01/28/24 01/28/24 History Colestipol HCl [Colestid] 2 gm PO BID 01/28/24 01/28/24 History Allergies Allergy/AdvReac Type Severity Reaction Status Date / Time No Known Allergies Allergy Verified 01/28/24 07:03 Physical Exam Vitals: Vital Signs Temp Pulse Resp BP Pulse Ox FiO2 01/28/24 08:08 97.4 F L 118 H 32 H 141/76 99 01/28/24 07:48 97.6 F 114 H 31 H 134/74 100 01/28/24 07:38 97.7 F 115 H 33 H 134/74 100 01/28/24 06:30 114 H 38 H 135/72 100 01/28/24 06:00 130 H 36 H 143/73 100 01/28/24 05:46 48 H 01/28/24 05:41 50 01/28/24 05:37 123 H 38 H 133/74 99 01/28/24 05:15 100 01/28/24 05:02 95 01/28/24 04:43 97.8 F 137 H 22 128/58 86 L Intake and Output 01/27/24 01/28/24 01/28/24 22:59 06:59 14:59 Intake Total 0 Balance 0 Intake: Blood Product 0 Rc As-1 Unit 0 [id number] Other: Weight 90.718 kg In general patient is alert and oriented x 3 in no distress HEENT head normocephalic and atraumatic Neck is supple no JVD no goiter no lymphadenopathy no carotid bruit Chest examination is clear to auscultation no crackles no wheezing Cardiac exam reveals irregular heart sounds S1 and S2 no gallops no murmurs Abdomen is soft nontender no organomegaly with normal bowel sounds Extremity exam reveals no edema no cyanosis or clubbing Neurological examination reveals no gross focal deficits Results CBC & Chem 7: 01/28/24 05:09 01/28/24 05:09 Labs: Abnormal Lab Results - Last 24 Hours (Table) 01/28/24 01/28/24 01/28/24 Range/Units 05:09 05:09 05:09 WBC 1.7 L (3.8-10.6) k/uL RBC 1.90 L (4.30-5.90) m/uL Hgb 5.9 L* (13.0-17.5) gm/dL Hct 17.7 L* (39.0-53.0) % RDW 16.4 H (11.5-15.5) % Plt Count 125 L (150-450) k/uL Neutrophils # 1.1 L (1.3-7.7) k/uL Lymphocytes # 0.4 L (1.0-4.8) k/uL PT 13.2 H (10.0-12.5) sec INR 1.3 H (<1.2) D-Dimer 1.32 H (<0.60) mg/L FEU VBG HCO3 (24-28) mmol/L Carbon Dioxide 18 L (22-30) mmol/L BUN 37 H (9-20) mg/dL Glucose 235 H (74-99) mg/dL Plasma Lactic Acid Dre (0.7-2.0) mmol/L Calcium 7.9 L (8.4-10.2) mg/dL Total Bilirubin 2.9 H (0.2-1.3) mg/dL AST 16 L (17-59) U/L Alkaline Phosphatase 226 H (38-126) U/L Total Protein 5.7 L (6.3-8.2) g/dL Albumin 2.6 L (3.5-5.0) g/dL Crossmatch 01/28/24 01/28/24 01/28/24 Range/Units 05:09 05:45 06:05 WBC (3.8-10.6) k/uL RBC (4.30-5.90) m/uL Hgb (13.0-17.5) gm/dL Hct (39.0-53.0) % RDW (11.5-15.5) % Plt Count (150-450) k/uL Neutrophils # (1.3-7.7) k/uL Lymphocytes # (1.0-4.8) k/uL PT (10.0-12.5) sec INR (<1.2) D-Dimer (<0.60) mg/L FEU VBG HCO3 22 L (24-28) mmol/L Carbon Dioxide (22-30) mmol/L BUN (9-20) mg/dL Glucose (74-99) mg/dL Plasma Lactic Acid Dre 4.6 H* (0.7-2.0) mmol/L Calcium (8.4-10.2) mg/dL Total Bilirubin (0.2-1.3) mg/dL AST (17-59) U/L Alkaline Phosphatase (38-126) U/L Total Protein (6.3-8.2) g/dL Albumin (3.5-5.0) g/dL Crossmatch See Detail Assessment and Plan Plan: Acute hypoxic respiratory failure New onset atrial fibrillation with RVR. acute purulent bronchitis with possible pneumonia acute metabolic acidosis History of multiple myeloma. Anemia, S/P packed red blood cell transfusion. Pancytopenia, secondary to chemotherapeutic agent. underlying history of hypertension. at this time patient is admitted to intensive care unit He was started on BiPAP patient was started on IV antibiotics Home medications reviewed and reordered Pulmonary and cardiology consultation requested Also oncology consultation requested in regard to multiple myeloma Will follow closely
--- NOTE | 2024-01-28 16:50 | P.CONS ---
History of Present Illness - Reason for Consult Consult date: 01/28/24 MM Requesting physician: Steve Keita - Chief Complaint SOB - History of Present Illness Mr. Fonseca is a male pt of Dr. Jovel with MM who is currently admitted to the [facility] because of a fib/RVR and severe hypoxia. He is on bipap when seen, pleasant and able to carry on a conversation. His wofe at bedside reports they both had upper resp symptoms over the last 1-2 weeks, persistent and then progressive then he had a temp of 102F so, came to ER. Lactic elevated, HR and RR were increased, noted afib with RVR, Hgb 5.9, BNP 1230. He is breathing better with bipap on, he denies chest pain or palpitations, N,abd pain, acute changed in bowel or bladder, bleeding, swelling in the legs, no pain to report. Malignancy Hx: Pt initially presented with acute sinusitis and severe cough and chest pain, CXR on 09/17/2018 which was negative,then CT chest on 10/02/2018 revealed a slightly expansile lytic lesion within the right pedicle, lamina and transverse processs of T4, some bony irregularity involving the forth right sided rib and 4 mm RLL lung nodule. 11/06/2018 CBC was normal, CMP revealed normal calcium and creatinine, high total protein, SPEP and immunofixation revealed IgG [place] monoclonal protein, M-spike 3.5gm/dl, IgG 4647 mg/dl, kappa level 1206 mg/L, kappa/lambda ratio 154.62. 11/08/2018 MRI of T-spine revealed expansile lesion at T4 with some mass effect on lateral margin of spinal canal. 11/18/2018 bone marrow biopsy revealed 70% plasma cells, normal cytogenetics and FISH. B2M was 2.49. 11/19/2018 PET scan revealed multiple osseous lytic lesions including anterior 3rd rib and T4, associated with soft tissue lesion. 24 hr urine revealed total protein of 2150mg/24 hrs urine, total kappa light chain of 193mg/dl, urine electrophoresis revealed kappa M-spike of 251.93 mg/dl. He completed palliative XRT to T4 and left rib on 11/29/2018. 12/09/2018 he started RVD/zometa regimen and his m-protein decrease with normal K/L ratio after just a few cycles. He started maintenance revlimid 07/2019 and has done well. 09/05/2023 revlimid was held due to fatigues, significant right sided rib pain. 09/05/2023 MM panel revealed M protein of 0.24 gm/dl. PET scan revealed no evidence of disease. 09/15/2023 M protein was 0.2 gm/dl. In Oct he developed pancytopenia, work up revealed B12 deficiency,started parenteral B12 supplement, pancytopenia resolved. He went back on relimid in mid December/2023, within a week of resuming, he started to feel weak, tired, night sweats and generalized aches, diarrhea and lost weight. So, he has held it 01/21. M protein on 01/21/2024 was 0.19 gm/dl. He received B12 injection on 01/23. Review of Systems 10 point ROS is neg except as stated in HPI Past Medical History Past Medical History: Cancer, Hypertension Additional Past Medical History / Comment(s): MULTIPLE MYELOMA, NEUROPATHY FEET, HANDS AND LEGS History of Any Multi-Drug Resistant Organisms: None Reported Past Surgical History: Adenoidectomy, Orthopedic Surgery, Tonsillectomy Additional Past Surgical History / Comment(s): RIGHT HIP REPLACEMENT, LEFT EYE S URGERY FOR SCLERAL BUCKLE, TOOTH IMPLANT Past Psychological History: No Psychological Hx Reported Smoking Status: Never smoker Past Alcohol Use History: None Reported Past Drug Use History: None Reported - Past Family History Father Family Medical History: Cancer (gastric cancer) Mother Family Medical History: Cancer (glioblastoma) Sister(s) Family Medical History: Cancer (melanoma) Medications and Allergies Home Medications Medication Instructions Recorded Confirmed Type Terazosin [Hytrin] 5 mg PO BID 11/15/18 01/28/24 History amLODIPine [Norvasc] 5 mg PO QAM 11/15/18 01/28/24 History Aspirin EC [Ecotrin Low Dose] 81 mg PO DAILY 01/28/24 01/28/24 History Colestipol HCl [Colestid] 2 gm PO BID 01/28/24 01/28/24 History Allergies Allergy/AdvReac Type Severity Reaction Status Date / Time No Known Allergies Allergy Verified 01/28/24 07:03 Physical Exam Vitals: Vital Signs Temp Pulse Resp BP Pulse Ox FiO2 01/28/24 07:48 97.6 F 114 H 31 H 134/74 100 01/28/24 07:38 97.7 F 115 H 33 H 134/74 100 01/28/24 06:30 114 H 38 H 135/72 100 01/28/24 06:00 130 H 36 H 143/73 100 01/28/24 05:46 48 H 01/28/24 05:41 50 01/28/24 05:37 123 H 38 H 133/74 99 01/28/24 05:15 100 01/28/24 05:02 95 01/28/24 04:43 97.8 F 137 H 22 128/58 86 L Intake and Output 01/27/24 01/28/24 01/28/24 22:59 06:59 14:59 Intake Total 0 Balance 0 Intake: Blood Product 0 Rc As-1 Unit 0 [id number] Other: Weight 90.718 kg - Constitutional General appearance: average body habitus, cooperative, mild distress - EENT Eyes: anicteric sclerae, EOMI ENT: hearing grossly normal - Respiratory Respiratory: bilateral: diminished - Cardiovascular Rhythm: irregularly irregular Heart sounds: normal: S1, S2 Abnormal Heart Sounds: no systolic murmur, no diastolic murmur, no rub, no S3 Gallop, no S4 Gallop, no click, no other leg Peripheral Edema: bilateral: None - Gastrointestinal General gastrointestinal: no absent bowel sounds, no decreased bowel sounds, no distended, no hepatomegaly, no hyperactive bowel sounds, normal bowel sounds, no organomegaly, no rigid, no scaphoid, soft, no splenomegaly, no tenderness, no umbilical hernia, no ventral hernia - Integumentary Integumentary: pale - Neurologic Neurologic: CNII-XII intact - Musculoskeletal Musculoskeletal: generalized weakness, strength equal bilaterally - Psychiatric Psychiatric: A&O x's 3, appropriate affect, intact judgment & insight Results CBC & Chem 7: 01/28/24 05:09 01/28/24 05:09 Labs: Abnormal Lab Results - Last 24 Hours (Table) 01/28/24 01/28/24 01/28/24 Range/Units 05:09 05:09 05:09 WBC 1.7 L (3.8-10.6) k/uL RBC 1.90 L (4.30-5.90) m/uL Hgb 5.9 L* (13.0-17.5) gm/dL Hct 17.7 L* (39.0-53.0) % RDW 16.4 H (11.5-15.5) % Plt Count 125 L (150-450) k/uL Neutrophils # 1.1 L (1.3-7.7) k/uL Lymphocytes # 0.4 L (1.0-4.8) k/uL PT 13.2 H (10.0-12.5) sec INR 1.3 H (<1.2) D-Dimer 1.32 H (<0.60) mg/L FEU VBG HCO3 (24-28) mmol/L Carbon Dioxide 18 L (22-30) mmol/L BUN 37 H (9-20) mg/dL Glucose 235 H (74-99) mg/dL Plasma Lactic Acid Dre (0.7-2.0) mmol/L Calcium 7.9 L (8.4-10.2) mg/dL Total Bilirubin 2.9 H (0.2-1.3) mg/dL AST 16 L (17-59) U/L Alkaline Phosphatase 226 H (38-126) U/L Total Protein 5.7 L (6.3-8.2) g/dL Albumin 2.6 L (3.5-5.0) g/dL Crossmatch 01/28/24 01/28/24 01/28/24 Range/Units 05:09 05:45 06:05 WBC (3.8-10.6) k/uL RBC (4.30-5.90) m/uL Hgb (13.0-17.5) gm/dL Hct (39.0-53.0) % RDW (11.5-15.5) % Plt Count (150-450) k/uL Neutrophils # (1.3-7.7) k/uL Lymphocytes # (1.0-4.8) k/uL PT (10.0-12.5) sec INR (<1.2) D-Dimer (<0.60) mg/L FEU VBG HCO3 22 L (24-28) mmol/L Carbon Dioxide (22-30) mmol/L BUN (9-20) mg/dL Glucose (74-99) mg/dL Plasma Lactic Acid Dre 4.6 H* (0.7-2.0) mmol/L Calcium (8.4-10.2) mg/dL Total Bilirubin (0.2-1.3) mg/dL AST (17-59) U/L Alkaline Phosphatase (38-126) U/L Total Protein (6.3-8.2) g/dL Albumin (3.5-5.0) g/dL Crossmatch See Detail Chest x-ray: report reviewed CT scan - chest: report reviewed Assessment and Plan (1) Anemia Current Visit: Yes Status: Acute Priority: High Code(s): D64.9 - ANEMIA, UNSPECIFIED SNOMED Code(s): 977714235 (2) Multiple myeloma Current Visit: Yes Status: Chronic Priority: Medium Code(s): C90.00 - MULTIPLE MYELOMA NOT HAVING ACHIEVED REMISSION SNOMED Code(s): 297366696 Plan: Fever prior to admission -Patient reporting temperature of 102+ Fahrenheit prior to admission, upper respiratory symptoms. -Elevated lactic on admission as well as BNP, increased heart rate and respiratory rate -Panculture workup pending -Empiric antibiotics ordered Anemia -significant change from 1 week ago-hemoglobin was 9.9 on 01/21, on admission it was 5.9. -Agree with transfusion. Transfuse for a Hgb <7 or if symptomatic, which pt is -No reports of bleeding so, concerns for significant change in hemoglobin, elevation of bilirubin. Hemolysis work up ordered. -Patient and are reporting recent symptoms of upper respiratory infection. May be contributing to additional stress on the bone marrow and worsening anemia. He is on antibiotics. Cultures are pending. -Patient does have B12 deficiency. He is on parenteral supplementation for the same. Basic anemia workup ordered MM -1 week ago held single agent revlimid as pt was not feeling well at that time -Recent MM labs were stable -Follow-up with Dr. Jovel scheduled New Onset atrial fibrillation -Cardiology consulted Doctor attests: I performed a history and physical examination of this patient, developed impression and plan of care. Discussed with dictator. I agree with dictators note, documented as a scribe.
[2024-01-28] MEDS: DOXAZOSIN 4 MG TAB PO SCH (17:50)
[2024-01-28] MEDS: VANCOMYCIN 1,500 MG in SODIUM CHLORIDE 0.9% 500 ML 500 ML IVPB SCH (22:11)
[2024-01-29] MEDS: LORazepam 2 MG/ML INJ IV STA (02:50)
[2024-01-29 05:47] LABS: Glucose,Whole Blood 116 mg/dL (70-110)
[2024-01-29 06:28] LABS: ALT 22 U/L (4-49); AST 14 U/L (17-59); African American GFR (CKD) >90 (>60 ml/min/1.73 sqM); Albumin 2.1 g/dL (3.5-5.0); Alkaline Phosphatase 148 U/L (38-126); Anion Gap 6 mmol/L; Blood Urea Nitrogen 29 mg/dL (9-20); Calcium 7.2 mg/dL (8.4-10.2); Carbon Dioxide 21 mmol/L (22-30); Chloride 114 mmol/L (98-107); Glucose 113 mg/dL (74-99); Non-African American GFR(CKD) 87 (>60 ml/min/1.73 sqM); Potassium 4.4 mmol/L (3.5-5.1); Sodium 141 mmol/L (137-145); Total Bilirubin 2.5 mg/dL (0.2-1.3); Total Protein 4.9 g/dL (6.3-8.2)
[2024-01-29 06:29] LABS: Basophils % (A) 0 %; Eosinophils % (A) 0 %; HCT 23.1 % (39.0-53.0); HGB 7.1 gm/dL (13.0-17.5); Hypochromasia Slight; Lymphocytes # (A) 0.3 k/uL (1.0-4.8); Lymphocytes % (A) 21 %; MCH 30.1 pg (25.0-35.0); MCHC 30.9 g/dL (31.0-37.0); MCV 97.4 fL (80.0-100.0); Macrocytosis Slight; Monocytes # (A) 0.1 k/uL (0-1.0); Monocytes % (A) 4 %; Neutrophils % (A) 73 %; RBC 2.37 m/uL (4.30-5.90)
[2024-01-29 06:30] LABS: WBC 1.4 k/uL (3.8-10.6)
[2024-01-29 06:32] LABS: Platelet Count 98 k/uL (150-450)
[2024-01-29 06:36] LABS: Glucose,Whole Blood 127 mg/dL (70-110)
[2024-01-29] MEDS: ASPIRIN 81 MG PO SCH (08:46)
[2024-01-29] MEDS: PANTOPRAZOLE 40 MG/10 ML VIAL IV SCH (08:46)
[2024-01-29] MEDS ORDERED: AZITHROMYCIN 500 MG TAB PO SCH (09:00)
--- NOTE | 2024-01-29 09:07 | P.PN ---
Subjective Progress Note Date: 01/29/24 Christopher Fonseca, is a 78-year-old male who presented to [facility] emergency room with a chief complaint of worsening shortness of breath. patient has a known history of multiple myeloma, followed by oncology. He was evaluated in the emergency room vital examination on presentation revealed a temperature of 97.8 pulse 137 respiration 22 blood pressure 128/58 pulse ox 86% on 4 L nasal cannula Laboratory data reveals a white blood count of 1.7 hemoglobin 5.9 platelet count 125 d-dimer 1.3 ABG revealed a pH of 7.41 pCO2 37 by mouth to 154 BUN 37 creatinine 1.03 Testing in the emergency room revealed CT angiogram of the chest revealed no evidence of pulmonary embolism chest x-ray was suggestive of acute bronchitis with pneumonitis, EKG revealed evidence of atrial fibrillation with rapid ventricular response Patient was admitted to intensive care unit, he was started on IV antibiotics, pulmonary cardiology and oncology consultation were requested. on 01/29/2024 patient's alert and oriented resting comfortably in bed. Patient remains in the intensive care unit patient is having increased coughing. Concerns per nursing staff about possible aspiration on water. Speech services will be consulted.patient remains on IV Cardizem. Patient also on IV antibiotics vancomycin and Zosyncurrent vital signs temp 98.1, heart rate 85, Respiratory rate 29, blood pressure 109/63 with a pulse ox 96% on 6 L Objective - Vital Signs Vital signs: Vital Signs Temp 98.1 F 01/29/24 08:00 Pulse 108 H 01/29/24 09:00 Resp 36 H 01/29/24 09:00 BP 112/62 01/29/24 09:00 Pulse Ox 88 L 01/29/24 09:00 FiO2 50 01/29/24 05:33 Intake & Output 01/28/24 01/29/24 01/29/24 18:59 06:59 18:59 Intake Total 1892.5 1169.417 712 Output Total 1075 1215 160 Balance 817.5 -45.583 552 Weight 90.718 kg 92.5 kg Intake: IV 1006 620 Piperacillin-Tazobactam 3 100 100 .375 gm In Sodium Chloride 0.9% 100 ml @ 25 mls/hr IVPB Q8HR [facility] Rx# :[id number] Sodium Chloride 0.9% 1, 405 20 000 ml @ 75 mls/hr IV . [id number] [facility] Rx#:[id number] Vancomycin 1,500 mg In 501 500 Sodium Chloride 0.9% 500 ml 500 ml @ 167 mls/hr IVPB ONCE ONE Rx#: [id number] Intake, IV Titration 1282.5 163.417 92 Amount Diltiazem 125 mg In 88.417 Sodium Chloride 0.9% 100 ml @ 5 MG/HR 5 mls/hr IV .Q24H [facility] Rx#:[id number] Diltiazem 125 mg In 32.5 92 Sodium Chloride 0.9% 100 ml @ Per Protocol IV .Q0M [facility] Rx#:[id number] Sodium Chloride 0.9% 1, 750 75 000 ml @ 75 mls/hr IV . [id number] [facility] Rx#:[id number] Vancomycin 1,500 mg In 500 Sodium Chloride 0.9% 500 ml 500 ml @ 167 mls/hr IVPB ONCE ONE Rx#: [id number] Oral 300 Blood Product 310 Rc As-1 Unit 310 [id number] Output: Urine 1075 1215 160 Other: Voiding Method Indwelling Catheter Indwelling Catheter - Exam Head normocephalic Neck supple Lungs expiratorywheezing Heart regular rate and rhythm S1-S2, no rub or gallop Abdomen is soft nontender nondistended positive bowel sounds no hepatosplenomegaly Extremities no edema Neuro alert and orientated to 3 - Labs CBC & Chem 7: 01/29/24 05:35 01/29/24 05:35 Labs: Abnormal Lab Results - Last 24 Hours (Table) 01/28/24 01/28/24 01/28/24 Range/Units 05:09 06:05 09:58 WBC (3.8-10.6) k/uL RBC (4.30-5.90) m/uL Hgb (13.0-17.5) gm/dL Hct (39.0-53.0) % MCHC (31.0-37.0) g/dL RDW (11.5-15.5) % Plt Count (150-450) k/uL Neutrophils # (1.3-7.7) k/uL Lymphocytes # (1.0-4.8) k/uL Haptoglobin (31.2-198.0) mg/dL ABG pO2 154 H (83-108) mmHg ABG Total CO2 25 H (19-24) mmol/L ABG O2 Saturation 99.5 H (94-97) % Chloride (98-107) mmol/L Carbon Dioxide (22-30) mmol/L BUN (9-20) mg/dL Glucose (74-99) mg/dL POC Glucose (mg/dL) (70-110) mg/dL Calcium (8.4-10.2) mg/dL Iron 33 L (65-175) UG/DL TIBC 153 L (228-460) UG/DL Transferrin 109.0 L (204.0-354.0) mg/dL Ferritin 1208.0 H (22.0-322.0) ng/mL Total Bilirubin (0.2-1.3) mg/dL AST (17-59) U/L Alkaline Phosphatase (38-126) U/L Lactate Dehydrogenase (120-246) U/L Total Protein (6.3-8.2) g/dL Albumin (3.5-5.0) g/dL Vitamin B12 3510.0 H (200.0-944.0) pg/mL Procalcitonin (0.02-0.09) ng/mL Ur Specific [place] (1.001-1.035) Urine Protein (Negative) Hyaline Casts (0-2) /lpf Urine Mucus (None) /hpf Crossmatch See Detail 01/28/24 01/28/24 01/28/24 Range/Units 10:54 12:03 12:03 WBC (3.8-10.6) k/uL RBC (4.30-5.90) m/uL Hgb (13.0-17.5) gm/dL Hct (39.0-53.0) % MCHC (31.0-37.0) g/dL RDW (11.5-15.5) % Plt Count (150-450) k/uL Neutrophils # (1.3-7.7) k/uL Lymphocytes # (1.0-4.8) k/uL Haptoglobin 253.0 H (31.2-198.0) mg/dL ABG pO2 (83-108) mmHg ABG Total CO2 (19-24) mmol/L ABG O2 Saturation (94-97) % Chloride (98-107) mmol/L Carbon Dioxide (22-30) mmol/L BUN (9-20) mg/dL Glucose (74-99) mg/dL POC Glucose (mg/dL) (70-110) mg/dL Calcium (8.4-10.2) mg/dL Iron (65-175) UG/DL TIBC (228-460) UG/DL Transferrin (204.0-354.0) mg/dL Ferritin (22.0-322.0) ng/mL Total Bilirubin (0.2-1.3) mg/dL AST (17-59) U/L Alkaline Phosphatase (38-126) U/L Lactate Dehydrogenase 102 L (120-246) U/L Total Protein (6.3-8.2) g/dL Albumin (3.5-5.0) g/dL Vitamin B12 (200.0-944.0) pg/mL Procalcitonin (0.02-0.09) ng/mL Ur Specific [place] 1.043 H (1.001-1.035) Urine Protein 1+ H (Negative) Hyaline Casts 10 H (0-2) /lpf Urine Mucus Rare H (None) /hpf Crossmatch 01/28/24 01/29/24 01/29/24 Range/Units 12:03 05:35 05:35 WBC 1.4 L* (3.8-10.6) k/uL RBC 2.37 L (4.30-5.90) m/uL Hgb 7.1 L (13.0-17.5) gm/dL Hct 23.1 L (39.0-53.0) % MCHC 30.9 L (31.0-37.0) g/dL RDW 16.0 H (11.5-15.5) % Plt Count 98 L (150-450) k/uL Neutrophils # 1.0 L (1.3-7.7) k/uL Lymphocytes # 0.3 L (1.0-4.8) k/uL Haptoglobin (31.2-198.0) mg/dL ABG pO2 (83-108) mmHg ABG Total CO2 (19-24) mmol/L ABG O2 Saturation (94-97) % Chloride 114 H (98-107) mmol/L Carbon Dioxide 21 L (22-30) mmol/L BUN 29 H (9-20) mg/dL Glucose 113 H (74-99) mg/dL POC Glucose (mg/dL) (70-110) mg/dL Calcium 7.2 L (8.4-10.2) mg/dL Iron (65-175) UG/DL TIBC (228-460) UG/DL Transferrin (204.0-354.0) mg/dL Ferritin (22.0-322.0) ng/mL Total Bilirubin 2.5 H (0.2-1.3) mg/dL AST 14 L (17-59) U/L Alkaline Phosphatase 148 H (38-126) U/L Lactate Dehydrogenase (120-246) U/L Total Protein 4.9 L (6.3-8.2) g/dL Albumin 2.1 L (3.5-5.0) g/dL Vitamin B12 (200.0-944.0) pg/mL Procalcitonin 2.12 H (0.02-0.09) ng/mL Ur Specific [place] (1.001-1.035) Urine Protein (Negative) Hyaline Casts (0-2) /lpf Urine Mucus (None) /hpf Crossmatch 01/29/24 01/29/24 Range/Units 05:46 06:35 WBC (3.8-10.6) k/uL RBC (4.30-5.90) m/uL Hgb (13.0-17.5) gm/dL Hct (39.0-53.0) % MCHC (31.0-37.0) g/dL RDW (11.5-15.5) % Plt Count (150-450) k/uL Neutrophils # (1.3-7.7) k/uL Lymphocytes # (1.0-4.8) k/uL Haptoglobin (31.2-198.0) mg/dL ABG pO2 (83-108) mmHg ABG Total CO2 (19-24) mmol/L ABG O2 Saturation (94-97) % Chloride (98-107) mmol/L Carbon Dioxide (22-30) mmol/L BUN (9-20) mg/dL Glucose (74-99) mg/dL POC Glucose (mg/dL) 116 H 127 H (70-110) mg/dL Calcium (8.4-10.2) mg/dL Iron (65-175) UG/DL TIBC (228-460) UG/DL Transferrin (204.0-354.0) mg/dL Ferritin (22.0-322.0) ng/mL Total Bilirubin (0.2-1.3) mg/dL AST (17-59) U/L Alkaline Phosphatase (38-126) U/L Lactate Dehydrogenase (120-246) U/L Total Protein (6.3-8.2) g/dL Albumin (3.5-5.0) g/dL Vitamin B12 (200.0-944.0) pg/mL Procalcitonin (0.02-0.09) ng/mL Ur Specific [place] (1.001-1.035) Urine Protein (Negative) Hyaline Casts (0-2) /lpf Urine Mucus (None) /hpf Crossmatch Assessment and Plan Assessment: Acute hypoxic respiratory failure New onset atrial fibrillation with RVR.per cardiology sinus tachycardia no evidence of atrial fibrillation acute purulent bronchitis with possible pneumonia acute metabolic acidosis History of multiple myeloma. Anemia, S/P packed red blood cell transfusion. Pancytopenia, secondary to chemotherapeutic agent. underlying history of hypertension. at this time patient is admitted to intensive care unit He was started on BiPAP patient was started on IV antibiotics Home medications reviewed and reordered Pulmonary and cardiology consultation requested Also oncology consultation requested in regard to multiple myeloma Will follow closely
--- NOTE | 2024-01-29 10:58 | P.PN ---
Subjective Progress Note Date: 01/29/24 Principal diagnosis: Shortness of breath. 78-year-old male who was seen in the emergency department, beginning on January 27, at 4:30 in the morning. The patient has a history of multiple myeloma, and hypertension. Over the last few days or so, the patient and his , have both been sick with an upper respiratory tract infection. It caused him to have significant shortness of breath, and weakness, over the last week or so. Because the shortness of breath was worsening, the patient decided to be evaluated in the emergency department. The patient was seen in the emergency department, by the ER physician, and was also briefly seen by my nurse practitioner. The patient is being admitted with the possibility of infection in the lung, and, anemia, as well as atrial fibrillation with RVR. Currently, the patient is on BiPAP, with settings of 14/6 and 50%. The patient is getting saline at 75 cc an hour. The patient's hemoglobin was 5.9. 1 unit of blood was ordered. The patient was placed on a Cardizem drip, at 5 mg an hour. He was also given vancomycin and Zosyn for possible pneumonia. Laboratory data includes a white count 1.7, hemoglobin 5.9, hematocrit 17.7, and a platelet count of 125,000. D-dimer was 1.32. Venous blood gases showed a pH of 7.38 and a pCO2 of 37. Sodium 138, potassium 4.1, chlorides 107, CO2 18, anion gap 13, BUN 37, and creatinine 1.03. Glucose was 235. Repeat was 148. Lactic acid was 7.6, calcium 7.9, albumin 2.6. N-terminal proBNP was 1230. Troponin was 0.027. Urine appears relatively benign. He tested negative for influenza A, B, RSV, and coronavirus. Chest x-ray shows some patchy pneumonitis. CT angiogram was negative for pulmonary embolism, but did show some changes of pneumonitis, particularly in the lower lobes the right middle lobe. Infectious, or inflammatory etiology was proposed. Progress note dated January 29, 2024. 78-year-old male seen yesterday in consultation. The patient has a history of m ultiple myeloma and hypertension, and came into the hospital with an acute respiratory infection, possibly pneumonia. The patient was on BiPAP yesterday, and is currently on 5 L nasal cannula. He did use BiPAP last night for about 4 hours, with settings of 16/8, and 50%. The patient is on Cardizem at 5 mg an hour for his atrial fibrillation, normal saline at 20 cc an hour, and the patient continues on vancomycin and Zosyn. Clinically, he feels a lot better, and looks a lot better. White count is 1.4, hemoglobin 7.1, hematocrit 23.1, and platelet count 98,000. Sodium 141, potassium 4.4, chlorides 114, CO2 21, BUN 29, creatinine 0.79. Glucose 127. Calcium 7.2, total bilirubin 2.5. Alb umin is 2.1. Procalcitonin level is 2.12. Urine is essentially negative. Chest x-ray shows minimal infiltrates bilaterally. Objective - Vital Signs Vital signs: Vital Signs Temp 98.1 F 01/29/24 08:00 Pulse 102 H 01/29/24 10:00 Resp 37 H 01/29/24 10:00 BP 137/70 01/29/24 10:00 Pulse Ox 90 L 01/29/24 10:00 FiO2 50 01/29/24 05:33 Intake & Output 01/28/24 01/29/24 01/29/24 18:59 06:59 18:59 Intake Total 1892.5 1169.417 722 Output Total 1075 1215 235 Balance 817.5 -45.583 487 Weight 90.718 kg 92.5 kg Intake: IV 1006 630 Piperacillin-Tazobactam 3 100 100 .375 gm In Sodium Chloride 0.9% 100 ml @ 25 mls/hr IVPB Q8HR [facility] Rx# :[id number] Sodium Chloride 0.9% 1, 405 30 000 ml @ 75 mls/hr IV . [id number] [facility] Rx#:[id number] Vancomycin 1,500 mg In 501 500 Sodium Chloride 0.9% 500 ml 500 ml @ 167 mls/hr IVPB ONCE ONE Rx#: [id number] Intake, IV Titration 1282.5 163.417 92 Amount Diltiazem 125 mg In 88.417 Sodium Chloride 0.9% 100 ml @ 5 MG/HR 5 mls/hr IV .Q24H [facility] Rx#:[id number] Diltiazem 125 mg In 32.5 92 Sodium Chloride 0.9% 100 ml @ Per Protocol IV .Q0M [facility] Rx#:[id number] Sodium Chloride 0.9% 1, 750 75 000 ml @ 75 mls/hr IV . [id number] [facility] Rx#:[id number] Vancomycin 1,500 mg In 500 Sodium Chloride 0.9% 500 ml 500 ml @ 167 mls/hr IVPB ONCE ONE Rx#: [id number] Oral 300 Blood Product 310 Rc As-1 Unit 310 [id number] Output: Urine 1075 1215 235 Other: Voiding Method Indwelling Catheter Indwelling Catheter Indwelling Catheter - Exam Minimal dyspnea, currently on nasal cannula. HEENT examination is grossly unremarkable. Neck supple. Full range of motion. No adenopathy thyromegaly or neck vein distention. Cardiovascular examination reveals an irregular rhythm and rate. Heart rate about 99 bpm. Heart sounds are distant. No distinct murmur. Lungs reveal mostly clear breath sounds. Minimal scattered rhonchi. No wheezes or crackles. Saturations are 99 %. Abdomen soft, with bowel sounds. No tenderness. Extremities are intact. No cyanosis clubbing or edema. Skin is without rash or lesion. Neurologic examination is brief but nonfocal. - Labs CBC & Chem 7: 01/29/24 05:35 01/29/24 05:35 Labs: Abnormal Lab Results - Last 24 Hours (Table) 01/28/24 01/28/24 01/28/24 Range/Units 05:09 06:05 09:58 WBC (3.8-10.6) k/uL RBC (4.30-5.90) m/uL Hgb (13.0-17.5) gm/dL Hct (39.0-53.0) % MCHC (31.0-37.0) g/dL RDW (11.5-15.5) % Plt Count (150-450) k/uL Neutrophils # (1.3-7.7) k/uL Lymphocytes # (1.0-4.8) k/uL Haptoglobin (31.2-198.0) mg/dL ABG pO2 154 H (83-108) mmHg ABG Total CO2 25 H (19-24) mmol/L ABG O2 Saturation 99.5 H (94-97) % Chloride (98-107) mmol/L Carbon Dioxide (22-30) mmol/L BUN (9-20) mg/dL Glucose (74-99) mg/dL POC Glucose (mg/dL) (70-110) mg/dL Calcium (8.4-10.2) mg/dL Iron 33 L (65-175) UG/DL TIBC 153 L (228-460) UG/DL Transferrin 109.0 L (204.0-354.0) mg/dL Ferritin 1208.0 H (22.0-322.0) ng/mL Total Bilirubin (0.2-1.3) mg/dL AST (17-59) U/L Alkaline Phosphatase (38-126) U/L Lactate Dehydrogenase (120-246) U/L Total Protein (6.3-8.2) g/dL Albumin (3.5-5.0) g/dL Vitamin B12 3510.0 H (200.0-944.0) pg/mL Procalcitonin (0.02-0.09) ng/mL Ur Specific Colman (1.001-1.035) Urine Protein (Negative) Hyaline Casts (0-2) /lpf Urine Mucus (None) /hpf Crossmatch See Detail 01/28/24 01/28/24 01/28/24 Range/Units 10:54 12:03 12:03 WBC (3.8-10.6) k/uL RBC (4.30-5.90) m/uL Hgb (13.0-17.5) gm/dL Hct (39.0-53.0) % MCHC (31.0-37.0) g/dL RDW (11.5-15.5) % Plt Count (150-450) k/uL Neutrophils # (1.3-7.7) k/uL Lymphocytes # (1.0-4.8) k/uL Haptoglobin 253.0 H (31.2-198.0) mg/dL ABG pO2 (83-108) mmHg ABG Total CO2 (19-24) mmol/L ABG O2 Saturation (94-97) % Chloride (98-107) mmol/L Carbon Dioxide (22-30) mmol/L BUN (9-20) mg/dL Glucose (74-99) mg/dL POC Glucose (mg/dL) (70-110) mg/dL Calcium (8.4-10.2) mg/dL Iron (65-175) UG/DL TIBC (228-460) UG/DL Transferrin (204.0-354.0) mg/dL Ferritin (22.0-322.0) ng/mL Total Bilirubin (0.2-1.3) mg/dL AST (17-59) U/L Alkaline Phosphatase (38-126) U/L Lactate Dehydrogenase 102 L (120-246) U/L Total Protein (6.3-8.2) g/dL Albumin (3.5-5.0) g/dL Vitamin B12 (200.0-944.0) pg/mL Procalcitonin (0.02-0.09) ng/mL Ur Specific Colman 1.043 H (1.001-1.035) Urine Protein 1+ H (Negative) Hyaline Casts 10 H (0-2) /lpf Urine Mucus Rare H (None) /hpf Crossmatch 01/28/24 01/29/24 01/29/24 Range/Units 12:03 05:35 05:35 WBC 1.4 L* (3.8-10.6) k/uL RBC 2.37 L (4.30-5.90) m/uL Hgb 7.1 L (13.0-17.5) gm/dL Hct 23.1 L (39.0-53.0) % MCHC 30.9 L (31.0-37.0) g/dL RDW 16.0 H (11.5-15.5) % Plt Count 98 L (150-450) k/uL Neutrophils # 1.0 L (1.3-7.7) k/uL Lymphocytes # 0.3 L (1.0-4.8) k/uL Haptoglobin (31.2-198.0) mg/dL ABG pO2 (83-108) mmHg ABG Total CO2 (19-24) mmol/L ABG O2 Saturation (94-97) % Chloride 114 H (98-107) mmol/L Carbon Dioxide 21 L (22-30) mmol/L BUN 29 H (9-20) mg/dL Glucose 113 H (74-99) mg/dL POC Glucose (mg/dL) (70-110) mg/dL Calcium 7.2 L (8.4-10.2) mg/dL Iron (65-175) UG/DL TIBC (228-460) UG/DL Transferrin (204.0-354.0) mg/dL Ferritin (22.0-322.0) ng/mL Total Bilirubin 2.5 H (0.2-1.3) mg/dL AST 14 L (17-59) U/L Alkaline Phosphatase 148 H (38-126) U/L Lactate Dehydrogenase (120-246) U/L Total Protein 4.9 L (6.3-8.2) g/dL Albumin 2.1 L (3.5-5.0) g/dL Vitamin B12 (200.0-944.0) pg/mL Procalcitonin 2.12 H (0.02-0.09) ng/mL Ur Specific Colman (1.001-1.035) Urine Protein (Negative) Hyaline Casts (0-2) /lpf Urine Mucus (None) /hpf Crossmatch 01/29/24 01/29/24 Range/Units 05:46 06:35 WBC (3.8-10.6) k/uL RBC (4.30-5.90) m/uL Hgb (13.0-17.5) gm/dL Hct (39.0-53.0) % MCHC (31.0-37.0) g/dL RDW (11.5-15.5) % Plt Count (150-450) k/uL Neutrophils # (1.3-7.7) k/uL Lymphocytes # (1.0-4.8) k/uL Haptoglobin (31.2-198.0) mg/dL ABG pO2 (83-108) mmHg ABG Total CO2 (19-24) mmol/L ABG O2 Saturation (94-97) % Chloride (98-107) mmol/L Carbon Dioxide (22-30) mmol/L BUN (9-20) mg/dL Glucose (74-99) mg/dL POC Glucose (mg/dL) 116 H 127 H (70-110) mg/dL Calcium (8.4-10.2) mg/dL Iron (65-175) UG/DL TIBC (228-460) UG/DL Transferrin (204.0-354.0) mg/dL Ferritin (22.0-322.0) ng/mL Total Bilirubin (0.2-1.3) mg/dL AST (17-59) U/L Alkaline Phosphatase (38-126) U/L Lactate Dehydrogenase (120-246) U/L Total Protein (6.3-8.2) g/dL Albumin (3.5-5.0) g/dL Vitamin B12 (200.0-944.0) pg/mL Procalcitonin (0.02-0.09) ng/mL Ur Specific Colman (1.001-1.035) Urine Protein (Negative) Hyaline Casts (0-2) /lpf Urine Mucus (None) /hpf Crossmatch Assessment and Plan Assessment: Acute hypoxemic respiratory failure, likely multifactorial, in part related to possible pneumonia, and exacerbated by new onset atrial fibrillation/RVR. History of multiple myeloma. Anemia, S/P packed red blood cell transfusion. Pancytopenia, secondary to chemotherapeutic agent. Anion gap metabolic acidosis. Lactic acidemia. History of hypertension. Plan: Plan dated January 28, 2024. The patient is admitted to the intensive care unit for further monitoring and management. The patient was seen in the emergency department initially, and transferred to the intensive care unit. The patient was placed on BiPAP, initially at 14/6 and 50%. Subsequent to that, respiratory therapy has made some adjustments. The patient's hemoglobin was only 5.9. The patient is to receive 1 unit of packed red blood cells. The patient continues on vancomycin and Zosyn. The patient also continues on Cardizem at 10 mg an hour. Initially it was only at 5 mg an hour. I also decided to give the patient a small dose of Ativan, to try to settle him down. The patient is receiving saline at 75 cc an hour. We did give the patient's an update. Plan dated January 29, 2024. The patient is seen today in room 256. The patient has been weaned down to nasal cannula between 5 to 6 L. His respiratory status is much improved. The patient continues on antibiotics in the form of vancomycin and Zosyn. The patient also continues on Cardizem drip at 5 mg an hour, for his atrial fibrillation. Labs, x-rays, and medications are reviewed. The patient did use BiPAP last night for about 4 hours. Currently he is on 5 L nasal cannula. We will continue to follow and make recommendations along the way. All culture data is negative thus far. Time with Patient: Greater than 30
--- NOTE | 2024-01-29 11:14 | XR ---
EXAMINATION TYPE: XR chest 1V DATE OF EXAM: 01/29/2024 COMPARISON: 01/28/2024 HISTORY: 78-year-old male BiPAP TECHNIQUE: Single frontal view of the chest is obtained. FINDINGS: Heart normal size. Mild interstitial density and mild hyperinflation is unchanged. Otherwi se, no consolidation or pleural effusion. IMPRESSION: Similar subtle interstitial infiltrates which were better seen on CT.
--- NOTE | 2024-01-29 16:11 | P.PN ---
Subjective HISTORY OF PRESENTING ILLNESS This is a pleasant 78-year-old male with history of multiple myeloma, hypertension. Patient normally is fairly healthy and takes multiple walks and is fairly active. He has been managed for his multiple myeloma and has been on Revlimid. This was started approximately 2 months ago. He presents secondary to multiple symptoms mainly of fevers, chills, cough and fatigue. Symptoms have been going on over the last few days along with his who is having similar symptoms. He has had worsening shortness breath and therefore presented to emergency department. He was found to be in respiratory distress and placed on BiPAP. He still had increased respiratory rate up into the 40s and 50s in addition was given Ativan and currently more sedated however or comfortable with respiratory rate more in the 30s. He had blood work including white blood cell count 1.7, hemoglobin 5.9, platelets 125. D-dimer was elevated at 1.[address] PE protocol was performed which showed no pulmonary embolism however pneumonitis. There is no significant pleural effusion. ProBNP 1230. Troponin mildly elevated at 0.02. He has no history of CAD. Cardiology was consult that secondary to Pamella anne. Initial EKG read out as atrial fibrillation however it is regular at parts and clearly P waves consistent with sinus r hythm/multifocal atrial tachycardia. Patient was having much increased ectopy however since sedation has clearly been sinus rhythm, sinus tachycardia. He was given blood transfusion somewhat more calm. 01/28 patient seen and examined. He states he is feeling somewhat better. He is currently on 5 L nasal cannula and more comfortable. He denies any fevers or chills. He denies chest pain. His telemetry shows sinus tachycardia with heart rates in the 100-120 range. He has been on Cardizem drip at 5 however no actual H [place] noted in much clear sinus tachycardia with P waves and no further i rregularity. PHYSICAL EXAMINATION Vital signs reviewed. CONSTITUTIONAL: No apparent distress, ill-appearing. HEENT: Head is normocephalic. Pupils are equal, round. Sclerae anicteric. Mucous membranes of the mouth are moist. No JVD. No carotid bruit. CHEST EXAMINATION: Lungs are clear to auscultation. No chest wall tenderness is noted on palpation or with deep breathing. HEART EXAMINATION: tachycardic, Regular rhythm. S1, S2 heard. No murmurs, gallops or rub. ABDOMEN: Soft, nontender. Positive bowel sounds. EXTREMITIES: 2+ peripheral pulses, no lower extremity edema and no calf tenderness. NEUROLOGIC EXAMINATION: Patient is awake, alert and oriented x3. ASSESSMENT Acute on chronic respiratory failure, mainly related to pneumonia Sinus tachycardia/multifocal atrial tachycardia. No evidence of atrial fibrillation Hypertension Sepsis Pancytopenia Multiple myeloma Non-STEMI likely type II mechanism related to respiratory distress PLAN EKG does not show atrial fibrillation and have only seen sinus rhythm, sinus tachycardia and multifocal atrial tachycardia likely exacerbated by pulmonary status. Echo awaiting final read however preliminary results show preserved EF. No need for any anticoagulation. Monitor his pancytopenia and further treatment of his multiple myeloma. Non-STEMI type II mechanism related to hypoxia, respiratory failure. No further recommendations from a cardiology standpoint. Please call with any questions. Objective - Vital Signs Vital signs: Vital Signs Temp 98.1 F 01/29/24 08:00 Pulse 110 H 01/29/24 15:57 Resp 35 H 01/29/24 14:00 BP 127/67 01/29/24 14:00 Pulse Ox 89 L 01/29/24 14:00 FiO2 50 01/29/24 05:33 Intake & Output 01/28/24 01/29/24 01/29/24 18:59 06:59 18:59 Intake Total 1892.5 1169.417 762 Output Total 1075 1215 570 Balance 817.5 -45.583 192 Weight 90.718 kg 92.5 kg Intake: IV 1006 670 Piperacillin-Tazobactam 3 100 100 .375 gm In Sodium Chloride 0.9% 100 ml @ 25 mls/hr IVPB Q8HR [facility] Rx# :[id number] Sodium Chloride 0.9% 1, 405 70 000 ml @ 75 mls/hr IV . [id number] [facility] Rx#:[id number] Vancomycin 1,500 mg In 501 500 Sodium Chloride 0.9% 500 ml 500 ml @ 167 mls/hr IVPB ONCE ONE Rx#: [id number] Intake, IV Titration 1282.5 163.417 92 Amount Diltiazem 125 mg In 88.417 Sodium Chloride 0.9% 100 ml @ 5 MG/HR 5 mls/hr IV .Q24H [facility] Rx#:[id number] Diltiazem 125 mg In 32.5 92 Sodium Chloride 0.9% 100 ml @ Per Protocol IV .Q0M [facility] Rx#:[id number] Sodium Chloride 0.9% 1, 750 75 000 ml @ 75 mls/hr IV . [id number] [facility] Rx#:[id number] Vancomycin 1,500 mg In 500 Sodium Chloride 0.9% 500 ml 500 ml @ 167 mls/hr IVPB ONCE ONE Rx#: [id number] Oral 300 Blood Product 310 Rc As-1 Unit 310 [id number] Output: Urine 1075 1215 570 Other: Voiding Method Indwelling Catheter Indwelling Catheter Indwelling Catheter - Labs CBC & Chem 7: 01/29/24 05:35 01/29/24 05:35 Labs: Abnormal Lab Results - Last 24 Hours (Table) 01/28/24 01/28/24 01/28/24 Range/Units 05:09 12:03 12:03 WBC (3.8-10.6) k/uL RBC (4.30-5.90) m/uL Hgb (13.0-17.5) gm/dL Hct (39.0-53.0) % MCHC (31.0-37.0) g/dL RDW (11.5-15.5) % Plt Count (150-450) k/uL Neutrophils # (1.3-7.7) k/uL Lymphocytes # (1.0-4.8) k/uL Haptoglobin 253.0 H (31.2-198.0) mg/dL Chloride (98-107) mmol/L Carbon Dioxide (22-30) mmol/L BUN (9-20) mg/dL Glucose (74-99) mg/dL POC Glucose (mg/dL) (70-110) mg/dL Calcium (8.4-10.2) mg/dL Iron 33 L (65-175) UG/DL TIBC 153 L (228-460) UG/DL Transferrin 109.0 L (204.0-354.0) mg/dL Ferritin 1208.0 H (22.0-322.0) ng/mL Total Bilirubin (0.2-1.3) mg/dL AST (17-59) U/L Alkaline Phosphatase (38-126) U/L Total Protein (6.3-8.2) g/dL Albumin (3.5-5.0) g/dL Vitamin B12 3510.0 H (200.0-944.0) pg/mL RBC Folate 858 H (280 - 791) ng/mL Procalcitonin (0.02-0.09) ng/mL 01/28/24 01/29/24 01/29/24 Range/Units 12:03 05:35 05:35 WBC 1.4 L* (3.8-10.6) k/uL RBC 2.37 L (4.30-5.90) m/uL Hgb 7.1 L (13.0-17.5) gm/dL Hct 23.1 L (39.0-53.0) % MCHC 30.9 L (31.0-37.0) g/dL RDW 16.0 H (11.5-15.5) % Plt Count 98 L (150-450) k/uL Neutrophils # 1.0 L (1.3-7.7) k/uL Lymphocytes # 0.3 L (1.0-4.8) k/uL Haptoglobin (31.2-198.0) mg/dL Chloride 114 H (98-107) mmol/L Carbon Dioxide 21 L (22-30) mmol/L BUN 29 H (9-20) mg/dL Glucose 113 H (74-99) mg/dL POC Glucose (mg/dL) (70-110) mg/dL Calcium 7.2 L (8.4-10.2) mg/dL Iron (65-175) UG/DL TIBC (228-460) UG/DL Transferrin (204.0-354.0) mg/dL Ferritin (22.0-322.0) ng/mL Total Bilirubin 2.5 H (0.2-1.3) mg/dL AST 14 L (17-59) U/L Alkaline Phosphatase 148 H (38-126) U/L Total Protein 4.9 L (6.3-8.2) g/dL Albumin 2.1 L (3.5-5.0) g/dL Vitamin B12 (200.0-944.0) pg/mL RBC Folate (280 - 791) ng/mL Procalcitonin 2.12 H (0.02-0.09) ng/mL 01/29/24 01/29/24 Range/Units 05:46 06:35 WBC (3.8-10.6) k/uL RBC (4.30-5.90) m/uL Hgb (13.0-17.5) gm/dL Hct (39.0-53.0) % MCHC (31.0-37.0) g/dL RDW (11.5-15.5) % Plt Count (150-450) k/uL Neutrophils # (1.3-7.7) k/uL Lymphocytes # (1.0-4.8) k/uL Haptoglobin (31.2-198.0) mg/dL Chloride (98-107) mmol/L Carbon Dioxide (22-30) mmol/L BUN (9-20) mg/dL Glucose (74-99) mg/dL POC Glucose (mg/dL) 116 H 127 H (70-110) mg/dL Calcium (8.4-10.2) mg/dL Iron (65-175) UG/DL TIBC (228-460) UG/DL Transferrin (204.0-354.0) mg/dL Ferritin (22.0-322.0) ng/mL Total Bilirubin (0.2-1.3) mg/dL AST (17-59) U/L Alkaline Phosphatase (38-126) U/L Total Protein (6.3-8.2) g/dL Albumin (3.5-5.0) g/dL Vitamin B12 (200.0-944.0) pg/mL RBC Folate (280 - 791) ng/mL Procalcitonin (0.02-0.09) ng/mL Microbiology - Last 24 Hours (Table) 01/28/24 18:35 Gram Stain - Preliminary Sputum 01/28/24 06:35 Blood Culture - Preliminary Blood 01/28/24 06:20 Blood Culture - Preliminary Blood
--- NOTE | 2024-01-29 21:21 | P.CONS ---
History of Present Illness - Reason for Consult Consult date: 01/29/24 - History of Present Illness Patient is a 78-year-old male with a past medical history significant for multiple myeloma previously has been on chemotherapy and hypertension presenting to the hospital yesterday morning for evaluation of increasing shortness of breath that apparently has been getting worse for a week or 2 however get to the point that he was unable to catch his breath or the patient presented to the hospital patient shortness of breath on exertion even at rest patient denies having any chest pain he did have a cough mild to moderate intensity but not bring up any sputum denies any URI symptoms no nausea vomiting no choking on food no abdominal pain or any diarrhea with the symptoms the pat ient was evaluated on presentation to the hospital patient was afebrile however he did have a low-grade fever of 99.8 at midnight afebrile since then patient is tachycardic but not hypotensive he was hypoxic on presentation to the hospital with O2 sats of 86% room air currently on 4 L nasal cannula oxygen patient did have a white count of 1 point 7 repeat is 1.4 hemoglobin was low lactic acid was elevated creatinine is normal still enzymes mildly elevated procalcitonin is 2.12 urine has been negative patient tested negative for influenza RSV COVID and urine for urine antigens negative blood and sputum culture manage currently pending patient did have a CT angiogram of the chest finding concerning for bronchitis with pneumonitis which may be of infectious or inflammatory etiologies patient is currently on a combination of Zosyn and vancomycin did receive Rocephin and Zithromax in the ER infectious was consulted for further management of antibiotic therapy concerning for sepsis Past Medical History Past Medical History: Cancer, Hypertension Additional Past Medical History / Comment(s): MULTIPLE MYELOMA, NEUROPATHY FEET, HANDS AND LEGS History of Any Multi-Drug Resistant Organisms: None Reported Past Surgical History: Adenoidectomy, Orthopedic Surgery, Tonsillectomy Additional Past Surgical History / Comment(s): RIGHT HIP REPLACEMENT, LEFT EYE SURGERY FOR SCLERAL BUCKLE, TOOTH IMPLANT Past Psychological History: No Psychological Hx Reported Smoking Status: Never smoker Past Alcohol Use History: None Reported Past Drug Use History: None Reported - Past Family History Father Family Medical History: Cancer (gastric cancer) Mother Family Medical History: Cancer (glioblastoma) Sister(s) Family Medical History: Cancer (melanoma) Medications and Allergies Home Medications Medication Instructions Recorded Confirmed Type Terazosin [Hytrin] 5 mg PO BID 11/15/18 01/28/24 History amLODIPine [Norvasc] 5 mg PO QAM 11/15/18 01/28/24 History Aspirin EC [Ecotrin Low Dose] 81 mg PO DAILY 01/28/24 01/28/24 History Colestipol HCl [Colestid] 2 gm PO BID 01/28/24 01/28/24 History Allergies Allergy/AdvReac Type Severity Reaction Status Date / Time No Known Allergies Allergy Verified 01/28/24 07:03 Physical Exam Vitals: Vital Signs Temp Pulse Resp BP Pulse Ox FiO2 01/29/24 10:00 102 H 37 H 137/70 90 L 01/29/24 09:00 108 H 36 H 112/62 88 L 01/29/24 08:32 98 01/29/24 08:24 99 01/29/24 08:22 90 01/29/24 08:00 98.1 F 85 29 H 109/63 96 01/29/24 07:00 86 29 H 130/68 01/29/24 06:00 97 35 H 127/75 95 01/29/24 05:33 50 01/29/24 05:00 79 31 H 103/67 100 01/29/24 04:00 98.3 F 92 34 H 110/67 98 50 01/29/24 03:00 104 H 29 H 130/69 98 01/29/24 02:55 101 H 01/29/24 02:45 96 01/29/24 02:24 50 01/29/24 02:00 93 38 H 134/72 93 L 01/29/24 01:00 105 H 38 H 129/69 94 L 01/29/24 00:00 99.8 F H 102 H 35 H 135/78 94 L 01/28/24 23:00 104 H 40 H 119/68 91 L 01/28/24 22:00 97 37 H 128/66 93 L 01/28/24 21:00 97 35 H 104/68 93 L 01/28/24 20:31 101 H 01/28/24 20:15 96 01/28/24 20:00 98.2 F 101 H 30 H 122/68 93 L 01/28/24 19:00 103 H 39 H 125/69 93 L 01/28/24 18:00 104 H 21 124/70 91 L 01/28/24 17:00 101 H 44 H 130/73 98 50 01/28/24 16:02 102 H 01/28/24 16:00 97.8 F 99 37 H 121/72 98 50 01/28/24 15:49 96 50 01/28/24 15:00 104 H 40 H 128/67 98 50 01/28/24 14:00 104 H 52 H 126/75 98 50 01/28/24 13:00 101 H 45 H 132/74 98 50 01/28/24 12:00 97.6 F 103 H 51 H 139/80 100 50 Intake and Output 01/28/24 01/29/24 01/29/24 22:59 06:59 14:59 Intake Total 988.417 781 722 Output Total 825 765 235 Balance 163.417 16 487 Intake: IV 225 781 630 Piperacillin-Tazobactam 3 100 100 .375 gm In Sodium Chloride 0.9% 100 ml @ 25 mls/hr IVPB Q8HR [facility] Rx# :[id number] Sodium Chloride 0.9% 1, 225 180 30 000 ml @ 75 mls/hr IV . [id number] [facility] Rx#:[id number] Vancomycin 1,500 mg In 501 500 Sodium Chloride 0.9% 500 ml 500 ml @ 167 mls/hr IVPB ONCE ONE Rx#: [id number] Intake, IV Titration 463.417 92 Amount Diltiazem 125 mg In 88.417 Sodium Chloride 0.9% 100 ml @ 5 MG/HR 5 mls/hr IV .Q24H [facility] Rx#:[id number] Diltiazem 125 mg In 92 Sodium Chloride 0.9% 100 ml @ Per Protocol IV .Q0M [facility] Rx#:[id number] Sodium Chloride 0.9% 1, 375 000 ml @ 75 mls/hr IV . [id number] [facility] Rx#:[id number] Oral 300 Output: Urine 825 765 235 Other: Voiding Method Indwelling Catheter Indwelling Catheter Indwelling Catheter Weight 92.5 kg Results CBC & Chem 7: 01/29/24 05:35 01/29/24 05:35 Labs: Abnormal Lab Results - Last 24 Hours (Table) 01/28/24 01/28/24 01/28/24 Range/Units 05:09 06:05 09:58 WBC (3.8-10.6) k/uL RBC (4.30-5.90) m/uL Hgb (13.0-17.5) gm/dL Hct (39.0-53.0) % MCHC (31.0-37.0) g/dL RDW (11.5-15.5) % Plt Count (150-450) k/uL Neutrophils # (1.3-7.7) k/uL Lymphocytes # (1.0-4.8) k/uL Haptoglobin (31.2-198.0) mg/dL ABG pO2 154 H (83-108) mmHg ABG Total CO2 25 H (19-24) mmol/L ABG O2 Saturation 99.5 H (94-97) % Chloride (98-107) mmol/L Carbon Dioxide (22-30) mmol/L BUN (9-20) mg/dL Glucose (74-99) mg/dL POC Glucose (mg/dL) (70-110) mg/dL Calcium (8.4-10.2) mg/dL Iron 33 L (65-175) UG/DL TIBC 153 L (228-460) UG/DL Transferrin 109.0 L (204.0-354.0) mg/dL Ferritin 1208.0 H (22.0-322.0) ng/mL Total Bilirubin (0.2-1.3) mg/dL AST (17-59) U/L Alkaline Phosphatase (38-126) U/L Lactate Dehydrogenase (120-246) U/L Total Protein (6.3-8.2) g/dL Albumin (3.5-5.0) g/dL Vitamin B12 3510.0 H (200.0-944.0) pg/mL Procalcitonin (0.02-0.09) ng/mL Crossmatch See Detail 01/28/24 01/28/24 01/28/24 Range/Units 12:03 12:03 12:03 WBC (3.8-10.6) k/uL RBC (4.30-5.90) m/uL Hgb (13.0-17.5) gm/dL Hct (39.0-53.0) % MCHC (31.0-37.0) g/dL RDW (11.5-15.5) % Plt Count (150-450) k/uL Neutrophils # (1.3-7.7) k/uL Lymphocytes # (1.0-4.8) k/uL Haptoglobin 253.0 H (31.2-198.0) mg/dL ABG pO2 (83-108) mmHg ABG Total CO2 (19-24) mmol/L ABG O2 Saturation (94-97) % Chloride (98-107) mmol/L Carbon Dioxide (22-30) mmol/L BUN (9-20) mg/dL Glucose (74-99) mg/dL POC Glucose (mg/dL) (70-110) mg/dL Calcium (8.4-10.2) mg/dL Iron (65-175) UG/DL TIBC (228-460) UG/DL Transferrin (204.0-354.0) mg/dL Ferritin (22.0-322.0) ng/mL Total Bilirubin (0.2-1.3) mg/dL AST (17-59) U/L Alkaline Phosphatase (38-126) U/L Lactate Dehydrogenase 102 L (120-246) U/L Total Protein (6.3-8.2) g/dL Albumin (3.5-5.0) g/dL Vitamin B12 (200.0-944.0) pg/mL Procalcitonin 2.12 H (0.02-0.09) ng/mL Crossmatch 01/29/24 01/29/24 01/29/24 Range/Units 05:35 05:35 05:46 WBC 1.4 L* (3.8-10.6) k/uL RBC 2.37 L (4.30-5.90) m/uL Hgb 7.1 L (13.0-17.5) gm/dL Hct 23.1 L (39.0-53.0) % MCHC 30.9 L (31.0-37.0) g/dL RDW 16.0 H (11.5-15.5) % Plt Count 98 L (150-450) k/uL Neutrophils # 1.0 L (1.3-7.7) k/uL Lymphocytes # 0.3 L (1.0-4.8) k/uL Haptoglobin (31.2-198.0) mg/dL ABG pO2 (83-108) mmHg ABG Total CO2 (19-24) mmol/L ABG O2 Saturation (94-97) % Chloride 114 H (98-107) mmol/L Carbon Dioxide 21 L (22-30) mmol/L BUN 29 H (9-20) mg/dL Glucose 113 H (74-99) mg/dL POC Glucose (mg/dL) 116 H (70-110) mg/dL Calcium 7.2 L (8.4-10.2) mg/dL Iron (65-175) UG/DL TIBC (228-460) UG/DL Transferrin (204.0-354.0) mg/dL Ferritin (22.0-322.0) ng/mL Total Bilirubin 2.5 H (0.2-1.3) mg/dL AST 14 L (17-59) U/L Alkaline Phosphatase 148 H (38-126) U/L Lactate Dehydrogenase (120-246) U/L Total Protein 4.9 L (6.3-8.2) g/dL Albumin 2.1 L (3.5-5.0) g/dL Vitamin B12 (200.0-944.0) pg/mL Procalcitonin (0.02-0.09) ng/mL Crossmatch 01/29/24 Range/Units 06:35 WBC (3.8-10.6) k/uL RBC (4.30-5.90) m/uL Hgb (13.0-17.5) gm/dL Hct (39.0-53.0) % MCHC (31.0-37.0) g/dL RDW (11.5-15.5) % Plt Count (150-450) k/uL Neutrophils # (1.3-7.7) k/uL Lymphocytes # (1.0-4.8) k/uL Haptoglobin (31.2-198.0) mg/dL ABG pO2 (83-108) mmHg ABG Total CO2 (19-24) mmol/L ABG O2 Saturation (94-97) % Chloride (98-107) mmol/L Carbon Dioxide (22-30) mmol/L BUN (9-20) mg/dL Glucose (74-99) mg/dL POC Glucose (mg/dL) 127 H (70-110) mg/dL Calcium (8.4-10.2) mg/dL Iron (65-175) UG/DL TIBC (228-460) UG/DL Transferrin (204.0-354.0) mg/dL Ferritin (22.0-322.0) ng/mL Total Bilirubin (0.2-1.3) mg/dL AST (17-59) U/L Alkaline Phosphatase (38-126) U/L Lactate Dehydrogenase (120-246) U/L Total Protein (6.3-8.2) g/dL Albumin (3.5-5.0) g/dL Vitamin B12 (200.0-944.0) pg/mL Procalcitonin (0.02-0.09) ng/mL Crossmatch Assessment and Plan Plan: 1patient presented to hospital with sepsis in this patient who did have a low- grade fever tachycardia leukopenia source is likely pneumonia in this patient who did have a history of multiple myeloma and did have a significantly low white count will need to cover for resistant gram-negative to be the likely pathogen less likely MRSA 2-blood and sputum culture have been obtained and results will be followed 3-patient to continue Zosyn however discontinue vancomycin to decrease risk of nephrotoxicity We will follow on clinical condition and cultures to further adjust medication if needed Thank you for this consultation we will follow the patient along with you Dictation was produced using [employer] dictation software. please excuse any gra mmatical, word or spelling errors. Time with Patient: Greater than 30
[2024-01-30] MEDS ORDERED: VANCOMYCIN TROUGH DUE 1 EACH MISC MISCELLANE ONE (07:00)
--- NOTE | 2024-01-30 07:33 | XR ---
EXAMINATION TYPE: XR chest 1V DATE OF EXAM: 01/30/2024 HISTORY: Shortness of breath. COMPARISON: 01/29/2024 TECHNIQUE: Single view of the chest is submitted. FINDINGS: Demonstrated are scattered senescent parenchymal change. There is no evidence for focal infiltrate. The heart is stable. Hilar and mediastinal structures are within normal limits. Degenerative changes are seen of the dorsal spine. IMPRESSION: 1. Chronic changes without evidence for acute pulmonary disease.
[2024-01-30 07:47] LABS: ALT 28 U/L (4-49); AST 16 U/L (17-59); African American GFR (CKD) >90 (>60 ml/min/1.73 sqM); Albumin 2.1 g/dL (3.5-5.0); Alkaline Phosphatase 203 U/L (38-126); Anion Gap 4 mmol/L; Blood Urea Nitrogen 21 mg/dL (9-20); Calcium 7.4 mg/dL (8.4-10.2); Carbon Dioxide 23 mmol/L (22-30); Chloride 113 mmol/L (98-107); Glucose 110 mg/dL (74-99); Non-African American GFR(CKD) 90 (>60 ml/min/1.73 sqM); Sodium 140 mmol/L (137-145); Total Bilirubin 2.6 mg/dL (0.2-1.3)
[2024-01-30 07:53] LABS: Anisocytosis Slight; Basophils % (A) 0 %; Eosinophils % (A) 1 %; HCT 21.8 % (39.0-53.0); HGB 7.1 gm/dL (13.0-17.5); Lymphocytes # (A) 0.4 k/uL (1.0-4.8); Lymphocytes % (A) 20 %; MCH 31.3 pg (25.0-35.0); MCHC 32.7 g/dL (31.0-37.0); MCV 95.6 fL (80.0-100.0); Monocytes % (A) 2 %; Neutrophils # (A) 1.5 k/uL (1.3-7.7); Neutrophils % (A) 76 %; RBC 2.28 m/uL (4.30-5.90); RDW 16.2 % (11.5-15.5); WBC 1.9 k/uL (3.8-10.6)
[2024-01-30 07:54] LABS: Platelet Count 95 k/uL (150-450)
[2024-01-30] MEDS: BENZONATATE 100 MG CAP PO SCH (09:05)
--- NOTE | 2024-01-30 11:02 | P.PN ---
Subjective Progress Note Date: 01/30/24 Christopher Fonscea, is a 78-year-old male who presented to [facility] emergency room with a chief complaint of worsening shortness of breath. patient has a known history of multiple myeloma, followed by oncology. He was evaluated in the emergency room vital examination on presentation reveale d a temperature of 97.8 pulse 137 respiration 22 blood pressure 128/58 pulse ox 86% on 4 L nasal cannula Laboratory data reveals a white blood count of 1.7 hemoglobin 5.9 platelet count 125 d-dimer 1.3 ABG revealed a pH of 7.41 pCO2 37 by mouth to 154 BUN 37 creatinine 1.03 Testing in the emergency room revealed CT angiogram of the chest revealed no evidence of pulmonary embolism chest x-ray was suggestive of acute bronchitis with pneumonitis, EKG revealed evidence of atrial fibrillation with rapid ventricular response Patient was admitted to intensive care unit, he was started on IV antibiotics, pulmonary cardiology and oncology consultation were requested. on 01/29/2024 patient's alert and oriented resting comfortably in bed. Patient remains in the intensive care unit patient is having increased coughing. Concerns per nursing staff about possible aspiration on water. Speech services will be consulted.patient remains on IV Cardizem. Patient also on IV antibiotics vancomycin and Zosyncurrent vital signs temp 98.1, heart rate 85, Respiratory rate 29, blood pressure 109/63 with a pulse ox 96% on 6 L On 01/30/2024 patient's alert and oriented resting comfortably in bed. Patient remains in the intensive care unit. Patient was evaluated by speech services dietary recommendations in chart. Infectious disease services are following.Patient remains on IV antibiotics Zosyn. White blood cell improving to 1.9. Cardiology, pulmonary, oncology and infectious disease service is following Objective - Vital Signs Vital signs: Vital Signs Temp 98.2 F 01/30/24 08:00 Pulse 117 H 01/30/24 10:00 Resp 34 H 01/30/24 10:00 BP 142/76 01/30/24 10:00 Pulse Ox 95 01/30/24 10:00 FiO2 50 01/30/24 00:11 Intake & Output 01/29/24 01/30/24 01/30/24 18:59 06:59 18:59 Intake Total 945 110 130 Output Total 815 865 260 Balance 130 -755 -130 Weight 91.4 kg Intake: IV 810 110 130 0.9 30 Piperacillin-Tazobactam 3 200 100 100 .375 gm In Sodium Chloride 0.9% 100 ml @ 25 mls/hr IVPB Q8HR [facility] Rx# :[id number] Sodium Chloride 0.9% 1, 110 10 000 ml @ 75 mls/hr IV . [id number] [facility] Rx#:[id number] Vancomycin 1,500 mg In 500 Sodium Chloride 0.9% 500 ml 500 ml @ 167 mls/hr IVPB ONCE ONE Rx#: [id number] Intake, IV Titration 135 Amount Diltiazem 125 mg In 135 Sodium Chloride 0.9% 100 ml @ Per Protocol IV .Q0M [facility] Rx#:[id number] Output: Urine 815 865 260 Other: Voiding Method Indwelling Catheter Indwelling Catheter Indwelling Catheter - Exam Head normocephalic Neck supple Lungs expiratorywheezing Heart regular rate and rhythm S1-S2, no rub or gallop Abdomen is soft nontender nondistended positive bowel sounds no hepatosplenomegaly Extremities no edema Neuro alert and orientated to 3 - Labs CBC & Chem 7: 01/30/24 07:02 01/30/24 07:02 Labs: Abnormal Lab Results - Last 24 Hours (Table) 01/28/24 01/30/24 01/30/24 Range/Units 12:03 07:02 07:02 WBC 1.9 L (3.8-10.6) k/uL RBC 2.28 L (4.30-5.90) m/uL Hgb 7.1 L (13.0-17.5) gm/dL Hct 21.8 L (39.0-53.0) % RDW 16.2 H (11.5-15.5) % Plt Count 95 L (150-450) k/uL Lymphocytes # 0.4 L (1.0-4.8) k/uL Chloride 113 H (98-107) mmol/L BUN 21 H (9-20) mg/dL Glucose 110 H (74-99) mg/dL Calcium 7.4 L (8.4-10.2) mg/dL Total Bilirubin 2.6 H (0.2-1.3) mg/dL AST 16 L (17-59) U/L Alkaline Phosphatase 203 H (38-126) U/L Total Protein 5.0 L (6.3-8.2) g/dL Albumin 2.1 L (3.5-5.0) g/dL RBC Folate 858 H (280 - 791) ng/mL Microbiology - Last 24 Hours (Table) 01/28/24 18:35 Nasal Screen MRSA/MSSA - Final Nasal Swab 01/28/24 18:35 Gram Stain - Preliminary Sputum 01/28/24 06:35 Blood Culture - Preliminary Blood 01/28/24 06:20 Blood Culture - Preliminary Blood Assessment and Plan Plan: Acute hypoxic respiratory failure New onset atrial fibrillation with RVR.per cardiology sinus tachycardia no evidence of atrial fibrillation acute purulent bronchitis with possible pneumonia acute metabolic acidosis History of multiple myeloma. Anemia, S/P packed red blood cell transfusion. Pancytopenia, secondary to chemotherapeutic agent. underlying history of hypertension. at this time patient is admitted to intensive care unit He was started on BiPAP patient was started on IV antibiotics Home medications reviewed and reordered Pulmonary and cardiology consultation requested Also oncology consultation requested in regard to multiple myeloma Will follow closely
--- NOTE | 2024-01-30 11:53 | P.PN ---
Subjective Progress Note Date: 01/30/24 Principal diagnosis: Shortness of breath. 78-year-old male who was seen in the emergency department, beginning on January 27, at 4:30 in the morning. The patient has a history of multiple myeloma, and hypertension. Over the last few days or so, the patient and his , have both been sick with an upper respiratory tract infection. It caused him to have significant shortness of breath, and weakness, over the last week or so. Because the shortness of breath was worsening, the patient decided to be evaluated in the emergency department. The patient was seen in the emergency department, by the ER physician, and was also briefly seen by my nurse practitioner. The patient is being admitted with the possibility of infection in the lung, and, anemia, as well as atrial fibrillation with RVR. Currently, the patient is on BiPAP, with settings of 14/6 and 50%. The patient is getting saline at 75 cc an hour. The patient's hemoglobin was 5.9. 1 unit of blood was ordered. The patient was placed on a Cardizem drip, at 5 mg an hour. He was also given vancomycin and Zosyn for possible pneumonia. Laboratory data includes a white count 1.7, hemoglobin 5.9, hematocrit 17.7, and a platelet count of 125,000. D-dimer was 1.32. Venous blood gases showed a pH of 7.38 and a pCO2 of 37. Sodium 138, potassium 4.1, chlorides 107, CO2 18, anion gap 13, BUN 37, and creatinine 1.03. Glucose was 235. Repeat was 148. Lactic acid was 7.6, calcium 7.9, albumin 2.6. N-terminal proBNP was 1230. Troponin was 0.027. Urine appears relatively benign. He tested negative for influenza A, B, RSV, and coronavirus. Chest x-ray shows some patchy pneumonitis. CT angiogram was negative for pulmonary embolism, but did show some changes of pneumonitis, particularly in the lower lobes the right middle lobe. Infectious, or inflammatory etiology was proposed. Progress note dated January 29, 2024. 78-year-old male seen yesterday in consultation. The patient has a history of m ultiple myeloma and hypertension, and came into the hospital with an acute respiratory infection, possibly pneumonia. The patient was on BiPAP yesterday, and is currently on 5 L nasal cannula. He did use BiPAP last night for about 4 hours, with settings of 16/8, and 50%. The patient is on Cardizem at 5 mg an hour for his atrial fibrillation, normal saline at 20 cc an hour, and the patient continues on vancomycin and Zosyn. Clinically, he feels a lot better, and looks a lot better. White count is 1.4, hemoglobin 7.1, hematocrit 23.1, and platelet count 98,000. Sodium 141, potassium 4.4, chlorides 114, CO2 21, BUN 29, creatinine 0.79. Glucose 127. Calcium 7.2, total bilirubin 2.5. Alb umin is 2.1. Procalcitonin level is 2.12. Urine is essentially negative. Chest x-ray shows minimal infiltrates bilaterally. Progress note dated January 30, 2024. 78-year-old male admitted with a diagnosis of possible pneumonia and respiratory failure. Currently he is seen in the intensive care unit, room 256. He is currently on nasal cannula at 5 L. He did use the BiPAP device last night, for a couple of hours, with settings of 16/8 and 50%. The patient continues on Zosyn. The patient could be transferred out to the general medical floor with telemetry. Will add some Tessalon Perles, for his cough. White count 1.9, hemoglobin 7.1, hematocrit 21.8, and platelet count was 95,000. Sodium 140, potassium 4, chlorides 113, CO2 23, BUN 21, creatinine 0.73. Calcium 7.4. Total bilirubin 2.6. Albumin is 2.1. Microbiologic studies are negative or pending. Chest x-ray shows some chronic changes, without an acute disease process. Objective - Vital Signs Vital signs: Vital Signs Temp 98.2 F 01/30/24 08:00 Pulse 117 H 01/30/24 10:00 Resp 34 H 01/30/24 10:00 BP 142/76 01/30/24 10:00 Pulse Ox 95 01/30/24 10:00 FiO2 50 01/30/24 00:11 Intake & Output 01/29/24 01/30/24 01/30/24 18:59 06:59 18:59 Intake Total 945 110 130 Output Total 815 865 260 Balance 130 -755 -130 Weight 91.4 kg Intake: IV 810 110 130 0.9 30 Piperacillin-Tazobactam 3 200 100 100 .375 gm In Sodium Chloride 0.9% 100 ml @ 25 mls/hr IVPB Q8HR [facility] Rx# :[id number] Sodium Chloride 0.9% 1, 110 10 000 ml @ 75 mls/hr IV . [id number] [facility] Rx#:[id number] Vancomycin 1,500 mg In 500 Sodium Chloride 0.9% 500 ml 500 ml @ 167 mls/hr IVPB ONCE ONE Rx#: [id number] Intake, IV Titration 135 Amount Diltiazem 125 mg In 135 Sodium Chloride 0.9% 100 ml @ Per Protocol IV .Q0M [facility] Rx#:[id number] Output: Urine 815 865 260 Other: Voiding Method Indwelling Catheter Indwelling Catheter Indwelling Catheter - Exam Minimal dyspnea, currently on nasal cannula. HEENT examination is grossly unremarkable. Neck supple. Full range of motion. No adenopathy thyromegaly or neck vein distention. Cardiovascular examination reveals an irregular rhythm and rate. Heart rate about 107 bpm. Heart sounds are distant. No distinct murmur. Lungs reveal mostly clear breath sounds. Minimal scattered rhonchi. No wheezes or crackles. Saturations are 95 %. Abdomen soft, with bowel sounds. No tenderness. Extremities are intact. No cyanosis clubbing or edema. Skin is without rash or lesion. Neurologic examination is brief but nonfocal. - Labs CBC & Chem 7: 01/30/24 07:02 01/30/24 07:02 Labs: Abnormal Lab Results - Last 24 Hours (Table) 01/28/24 01/30/24 01/30/24 Range/Units 12:03 07:02 07:02 WBC 1.9 L (3.8-10.6) k/uL RBC 2.28 L (4.30-5.90) m/uL Hgb 7.1 L (13.0-17.5) gm/dL Hct 21.8 L (39.0-53.0) % RDW 16.2 H (11.5-15.5) % Plt Count 95 L (150-450) k/uL Lymphocytes # 0.4 L (1.0-4.8) k/uL Chloride 113 H (98-107) mmol/L BUN 21 H (9-20) mg/dL Glucose 110 H (74-99) mg/dL Calcium 7.4 L (8.4-10.2) mg/dL Total Bilirubin 2.6 H (0.2-1.3) mg/dL AST 16 L (17-59) U/L Alkaline Phosphatase 203 H (38-126) U/L Total Protein 5.0 L (6.3-8.2) g/dL Albumin 2.1 L (3.5-5.0) g/dL RBC Folate 858 H (280 - 791) ng/mL Microbiology - Last 24 Hours (Table) 01/28/24 18:35 Nasal Screen MRSA/MSSA - Final Nasal Swab 01/28/24 18:35 Gram Stain - Preliminary Sputum 01/28/24 06:35 Blood Culture - Preliminary Blood 01/28/24 06:20 Blood Culture - Preliminary Blood Assessment and Plan Assessment: Acute hypoxemic respiratory failure, likely multifactorial, in part related to possible pneumonia, and exacerbated by new onset atrial fibrillation/RVR. History of multiple myeloma. Anemia, S/P packed red blood cell transfusion. Pancytopenia, secondary to chemotherapeutic agent. Anion gap metabolic acidosis. Lactic acidemia. History of hypertension. Plan: Plan dated January 28, 2024. The patient is admitted to the intensive care unit for further monitoring and management. The patient was seen in the emergency department initially, and transferred to the intensive care unit. The patient was placed on BiPAP, initially at 14/6 and 50%. Subsequent to that, respiratory therapy has made some adjustments. The patient's hemoglobin was only 5.9. The patient is to receive 1 unit of packed red blood cells. The patient continues on vancomycin and Zosyn. The patient also continues on Cardizem at 10 mg an hour. Initially it was only at 5 mg an hour. I also decided to give the patient a small dose of Ativan, to try to settle him down. The patient is receiving saline at 75 cc an hour. We did give the patient's an update. Plan dated January 29, 2024. The patient is seen today in room 256. The patient has been weaned down to nasal cannula between 5 to 6 L. His respiratory status is much improved. The patient continues on antibiotics in the form of vancomycin and Zosyn. The patient also continues on Cardizem drip at 5 mg an hour, for his atrial fibrillation. Labs, x-rays, and medications are reviewed. The patient did use BiPAP last night for about 4 hours. Currently he is on 5 L nasal cannula. We will continue to follow and make recommendations along the way. All culture data is negative thus far. Plan dated January 30, 2024. The patient is seen today in room 256. The patient is doing much better. He did use the BiPAP last night for couple hours at, 16/8, and 50%. Currently he is on nasal O2 at 5 L. He is getting saline at KVO. He continues on Zosyn. Will add some Tessalon Perles for his cough. Labs, x-rays, medications are reviewed. The patient could be transferred out to the general medical floor, with telemetry. We will continue to follow and make recommendations along the way. Time with Patient: Less than 30
--- NOTE | 2024-01-30 16:52 | P.PN ---
Subjective HISTORY OF PRESENTING ILLNESS This is a pleasant 78-year-old male with history of multiple myeloma, hypertension. Patient normally is fairly healthy and takes multiple walks and is fairly active. He has been managed for his multiple myeloma and has been on Revlimid. This was started approximately 2 months ago. He presents secondary to multiple symptoms mainly of fevers, chills, cough and fatigue. Symptoms have been going on over the last few days along with his who is having similar symptoms. He has had worsening shortness breath and therefore presented to emergency department. He was found to be in respiratory distress and placed on BiPAP. He still had increased respiratory rate up into the 40s and 50s in addition was given Ativan and currently more sedated however or comfortable with respiratory rate more in the 30s. He had blood work including white blood cell count 1.7, hemoglobin 5.9, platelets 125. D-dimer was elevated at 1.[address] PE protocol was performed which showed no pulmonary embolism however pneumonitis. There is no significant pleural effusion. ProBNP 1230. Troponin mildly elevated at 0.02. He has no history of CAD. Cardiology was consult that secondary to Pamella anne. Initial EKG read out as atrial fibrillation however it is regular at parts and clearly P waves consistent with sinus r hythm/multifocal atrial tachycardia. Patient was having much increased ectopy however since sedation has clearly been sinus rhythm, sinus tachycardia. He was given blood transfusion somewhat more calm. 01/28 patient seen and examined. He states he is feeling somewhat better. He is currently on 5 L nasal cannula and more comfortable. He denies any fevers or chills. He denies chest pain. His telemetry shows sinus tachycardia with heart rates in the 100-120 range. He has been on Cardizem drip at 5 however no actual H [place] noted in much clear sinus tachycardia with P waves and no further i rregularity. 01/29 patient seen and examined. Patient feels much better. Echocardiogram personally reviewed with preserved EF and without significant valvular disease. His Cardizem drip was discontinued. Remains in sinus rhythm with sinus tachycardia however denies any palpitations and is feeling somewhat better today in terms of shortness breath. PHYSICAL EXAMINATION Vital signs reviewed. CONSTITUTIONAL: No apparent distress, ill-appearing. HEENT: Head is normocephalic. Pupils are equal, round. Sclerae anicteric. Mucous membranes of the mouth are moist. No JVD. No carotid bruit. CHEST EXAMINATION: Lungs are clear to auscultation. No chest wall tenderness is noted on palpation or with deep breathing. HEART EXAMINATION: tachycardic, Regular rhythm. S1, S2 heard. No murmurs, gallops or rub. ABDOMEN: Soft, nontender. Positive bowel sounds. EXTREMITIES: 2+ peripheral pulses, no lower extremity edema and no calf tenderness. NEUROLOGIC EXAMINATION: Patient is awake, alert and oriented x3. ASSESSMENT Acute on chronic respiratory failure, mainly related to pneumonia Sinus tachycardia/multifocal atrial tachycardia. No evidence of atrial fibrillation Hypertension Sepsis Pancytopenia Multiple myeloma Non-STEMI likely type II mechanism related to respiratory distress PLAN His pancytopenia is mildly improving and echo showing preserved EF without significant valvular disease. No signs of any atrial fibrillation. Continue current supportive care. No further recommendations from cardiology standpoint. Please call with any questions. Objective - Vital Signs Vital signs: Vital Signs Temp 98.2 F 01/30/24 08:00 Pulse 100 01/30/24 16:42 Resp 22 01/30/24 15:00 BP 114/64 01/30/24 14:00 Pulse Ox 93 L 01/30/24 15:00 FiO2 50 01/30/24 00:11 Intake & Output 01/29/24 01/30/24 01/30/24 18:59 06:59 18:59 Intake Total 945 110 130 Output Total 815 865 260 Balance 130 -755 -130 Weight 91.4 kg Intake: IV 810 110 130 0.9 30 Piperacillin-Tazobactam 3 200 100 100 .375 gm In Sodium Chloride 0.9% 100 ml @ 25 mls/hr IVPB Q8HR [facility] Rx# :[id number] Sodium Chloride 0.9% 1, 110 10 000 ml @ 75 mls/hr IV . [id number] [facility] Rx#:[id number] Vancomycin 1,500 mg In 500 Sodium Chloride 0.9% 500 ml 500 ml @ 167 mls/hr IVPB ONCE ONE Rx#: [id number] Intake, IV Titration 135 Amount Diltiazem 125 mg In 135 Sodium Chloride 0.9% 100 ml @ Per Protocol IV .Q0M [facility] Rx#:[id number] Output: Urine 815 865 260 Other: Voiding Method Indwelling Catheter Indwelling Catheter Indwelling Catheter - Labs CBC & Chem 7: 01/30/24 07:02 01/30/24 07:02 Labs: Abnormal Lab Results - Last 24 Hours (Table) 01/30/24 01/30/24 Range/Units 07:02 07:02 WBC 1.9 L (3.8-10.6) k/uL RBC 2.28 L (4.30-5.90) m/uL Hgb 7.1 L (13.0-17.5) gm/dL Hct 21.8 L (39.0-53.0) % RDW 16.2 H (11.5-15.5) % Plt Count 95 L (150-450) k/uL Lymphocytes # 0.4 L (1.0-4.8) k/uL Chloride 113 H (98-107) mmol/L BUN 21 H (9-20) mg/dL Glucose 110 H (74-99) mg/dL Calcium 7.4 L (8.4-10.2) mg/dL Total Bilirubin 2.6 H (0.2-1.3) mg/dL AST 16 L (17-59) U/L Alkaline Phosphatase 203 H (38-126) U/L Total Protein 5.0 L (6.3-8.2) g/dL Albumin 2.1 L (3.5-5.0) g/dL Microbiology - Last 24 Hours (Table) 01/28/24 06:35 Blood Culture - Preliminary Blood 01/28/24 06:20 Blood Culture - Preliminary Blood 01/28/24 18:35 Nasal Screen MRSA/MSSA - Final Nasal Swab 01/28/24 18:35 Gram Stain - Preliminary Sputum
[2024-01-31 06:10] LABS: Basophils % (A) 0 %; Eosinophils % (A) 1 %; HCT 20.6 % (39.0-53.0); Lymphocytes # (A) 0.3 k/uL (1.0-4.8); Lymphocytes % (A) 16 %; MCH 30.6 pg (25.0-35.0); MCHC 31.7 g/dL (31.0-37.0); MCV 96.4 fL (80.0-100.0); Mean Platelet Volume 10.2; Monocytes # (A) 0.1 k/uL (0-1.0); Monocytes % (A) 8 %; Neutrophils # (A) 1.4 k/uL (1.3-7.7); Neutrophils % (A) 74 %; Platelet Count 113 k/uL (150-450); RBC 2.13 m/uL (4.30-5.90); WBC 1.9 k/uL (3.8-10.6)
[2024-01-31 06:16] LABS: HGB 6.5 gm/dL (13.0-17.5)
[2024-01-31 06:35] LABS: ALT 32 U/L (4-49); AST 18 U/L (17-59); African American GFR (CKD) >90 (>60 ml/min/1.73 sqM); Albumin 2.1 g/dL (3.5-5.0); Alkaline Phosphatase 180 U/L (38-126); Anion Gap 4 mmol/L; Blood Urea Nitrogen 19 mg/dL (9-20); Calcium 7.4 mg/dL (8.4-10.2); Carbon Dioxide 25 mmol/L (22-30); Chloride 111 mmol/L (98-107); Glucose 111 mg/dL (74-99); Non-African American GFR(CKD) >90 (>60 ml/min/1.73 sqM); Potassium 4.2 mmol/L (3.5-5.1); Sodium 140 mmol/L (137-145); Total Bilirubin 2.2 mg/dL (0.2-1.3); Total Protein 4.8 g/dL (6.3-8.2)
--- NOTE | 2024-01-31 12:25 | P.PN ---
Subjective Progress Note Date: 01/31/24 Principal diagnosis: Shortness of breath. 78-year-old male who was seen in the emergency department, beginning on January 27, at 4:30 in the morning. The patient has a history of multiple myeloma, and hypertension. Over the last few days or so, the patient and his , have both been sick with an upper respiratory tract infection. It caused him to have significant shortness of breath, and weakness, over the last week or so. Because the shortness of breath was worsening, the patient decided to be evaluated in the emergency department. The patient was seen in the emergency department, by the ER physician, and was also briefly seen by my nurse practitioner. The patient is being admitted with the possibility of infection in the lung, and, anemia, as well as atrial fibrillation with RVR. Currently, the patient is on BiPAP, with settings of 14/6 and 50%. The patient is getting saline at 75 cc an hour. The patient's hemoglobin was 5.9. 1 unit of blood was ordered. The patient was placed on a Cardizem drip, at 5 mg an hour. He was also given vancomycin and Zosyn for possible pneumonia. Laboratory data includes a white count 1.7, hemoglobin 5.9, hematocrit 17.7, and a platelet count of 125,000. D-dimer was 1.32. Venous blood gases showed a pH of 7.38 and a pCO2 of 37. Sodium 138, potassium 4.1, chlorides 107, CO2 18, anion gap 13, BUN 37, and creatinine 1.03. Glucose was 235. Repeat was 148. Lactic acid was 7.6, calcium 7.9, albumin 2.6. N-terminal proBNP was 1230. Troponin was 0.027. Urine appears relatively benign. He tested negative for influenza A, B, RSV, and coronavirus. Chest x-ray shows some patchy pneumonitis. CT angiogram was negative for pulmonary embolism, but did show some changes of pneumonitis, particularly in the lower lobes the right middle lobe. Infectious, or inflammatory etiology was proposed. Progress note dated January 29, 2024. 78-year-old male seen yesterday in consultation. The patient has a history of m ultiple myeloma and hypertension, and came into the hospital with an acute respiratory infection, possibly pneumonia. The patient was on BiPAP yesterday, and is currently on 5 L nasal cannula. He did use BiPAP last night for about 4 hours, with settings of 16/8, and 50%. The patient is on Cardizem at 5 mg an hour for his atrial fibrillation, normal saline at 20 cc an hour, and the patient continues on vancomycin and Zosyn. Clinically, he feels a lot better, and looks a lot better. White count is 1.4, hemoglobin 7.1, hematocrit 23.1, and platelet count 98,000. Sodium 141, potassium 4.4, chlorides 114, CO2 21, BUN 29, creatinine 0.79. Glucose 127. Calcium 7.2, total bilirubin 2.5. Alb umin is 2.1. Procalcitonin level is 2.12. Urine is essentially negative. Chest x-ray shows minimal infiltrates bilaterally. Progress note dated January 30, 2024. 78-year-old male admitted with a diagnosis of possible pneumonia and respiratory failure. Currently he is seen in the intensive care unit, room 256. He is currently on nasal cannula at 5 L. He did use the BiPAP device last night, for a couple of hours, with settings of 16/8 and 50%. The patient continues on Zosyn. The patient could be transferred out to the general medical floor with telemetry. Will add some Tessalon Perles, for his cough. White count 1.9, hemoglobin 7.1, hematocrit 21.8, and platelet count was 95,000. Sodium 140, potassium 4, chlorides 113, CO2 23, BUN 21, creatinine 0.73. Calcium 7.4. Total bilirubin 2.6. Albumin is 2.1. Microbiologic studies are negative or pending. Chest x-ray shows some chronic changes, without an acute disease process. Progress note dated January 31, 2024. 78-year-old admitted with a diagnosis of pneumonia and respiratory failure. He is seen today in room 256. He is currently on 5 L nasal cannula. He is getting saline at KVO. He continues on Zosyn. He will receive another unit of blood. He has received a total of 2 units of PRBCs. Today's hemoglobin was 6.5. Today's labs include a white count 1.9, hemoglobin 6.5, hematocrit 20.6, and a platelet count of 113,000. Sodium 140, potassium 4.2, chloride 111, CO2 25, BUN 19, and creatinine 0.7. Glucose is 111. Calcium is 7.4, bilirubin 2.2. Albumin 2.1. Blood cultures and sputum sampling is negative thus far. No chest x-ray today. Objective - Vital Signs Vital signs: Vital Signs Temp 98.5 F 01/31/24 11:26 Pulse 92 01/31/24 12:02 Resp 18 01/31/24 12:02 BP 137/76 01/31/24 11:26 Pulse Ox 96 01/31/24 11:26 FiO2 50 01/31/24 09:50 Intake & Output 01/30/24 01/31/24 01/31/24 18:59 06:59 18:59 Intake Total 310 80 250 Output Total 510 725 400 Balance -200 -645 -150 Intake: IV 310 80 10 0.9 110 80 Invasive Line 1 10 Piperacillin-Tazobactam 3 200 .375 gm In Sodium Chloride 0.9% 100 ml @ 25 mls/hr IVPB Q8HR [facility] Rx# :[id number] Oral 240 Blood Product 0 Unit 0 Output: Urine 510 725 400 Other: Voiding Method Indwelling Catheter Indwelling Catheter Indwelling Catheter - Exam Minimal dyspnea, currently on nasal cannula. Patient on 5 L. HEENT examination is grossly unremarkable. Neck supple. Full range of motion. No adenopathy thyromegaly or neck vein distention. Cardiovascular examination reveals an irregular rhythm and rate. Heart rate about 98 bpm. Heart sounds are distant. No distinct murmur. Lungs reveal mostly clear breath sounds. Minimal scattered rhonchi. No wheezes or crackles. Saturations are 95 %. Patient on 5 L nasal cannula. Abdomen soft, with bowel sounds. No tenderness. Extremities are intact. No cyanosis clubbing or edema. Skin is without rash or lesion. Neurologic examination is brief but nonfocal. - Labs CBC & Chem 7: 01/31/24 05:11 01/31/24 05:11 Labs: Abnormal Lab Results - Last 24 Hours (Table) 01/31/24 01/31/24 01/31/24 Range/Units 05:11 05:11 07:39 WBC 1.9 L (3.8-10.6) k/uL RBC 2.13 L (4.30-5.90) m/uL Hgb 6.5 L* (13.0-17.5) gm/dL Hct 20.6 L (39.0-53.0) % RDW 16.0 H (11.5-15.5) % Plt Count 113 L (150-450) k/uL Lymphocytes # 0.3 L (1.0-4.8) k/uL Chloride 111 H (98-107) mmol/L Glucose 111 H (74-99) mg/dL Calcium 7.4 L (8.4-10.2) mg/dL Total Bilirubin 2.2 H (0.2-1.3) mg/dL Alkaline Phosphatase 180 H (38-126) U/L Total Protein 4.8 L (6.3-8.2) g/dL Albumin 2.1 L (3.5-5.0) g/dL Crossmatch See Detail Microbiology - Last 24 Hours (Table) 01/28/24 18:35 Gram Stain - Final Sputum Sputum Culture - Final 01/28/24 06:35 Blood Culture - Preliminary Blood 01/28/24 06:20 Blood Culture - Preliminary Blood 01/28/24 18:35 Nasal Screen MRSA/MSSA - Final Nasal Swab Assessment and Plan Assessment: Acute hypoxemic respiratory failure, likely multifactorial, in part related to possible pneumonia, and exacerbated by new onset atrial fibrillation/RVR. History of multiple myeloma. Anemia, S/P packed red blood cell transfusion. Pancytopenia, secondary to chemotherapeutic agent. Anion gap metabolic acidosis. Lactic acidemia. History of hypertension. Plan: Plan dated January 28, 2024. The patient is admitted to the intensive care unit for further monitoring and management. The patient was seen in the emergency department initially, and transferred to the intensive care unit. The patient was placed on BiPAP, initially at 14/6 and 50%. Subsequent to that, respiratory therapy has made some adjustments. The patient's hemoglobin was only 5.9. The patient is to receive 1 unit of packed red blood cells. The patient continues on vancomycin and Zosyn. The patient also continues on Cardizem at 10 mg an hour. Initially it was only at 5 mg an hour. I also decided to give the patient a small dose of Ativan, to try to settle him down. The patient is receiving saline at 75 cc an hour. We did give the patient's an update. Plan dated January 29, 2024. The patient is seen today in room 256. The patient has been weaned down to nasal cannula between 5 to 6 L. His respiratory status is much improved. The patient continues on antibiotics in the form of vancomycin and Zosyn. The patient also continues on Cardizem drip at 5 mg an hour, for his atrial fibr illation. Labs, x-rays, and medications are reviewed. The patient did use BiPAP last night for about 4 hours. Currently he is on 5 L nasal cannula. We will continue to follow and make recommendations along the way. All culture data is negative thus far. Plan dated January 30, 2024. The patient is seen today in room 256. The patient is doing much better. He did use the BiPAP last night for couple hours at, 16/8, and 50%. Currently he is on nasal O2 at 5 L. He is getting saline at KVO. He continues on Zosyn. Will add some Tessalon Perles for his cough. Labs, x-rays, medications are r eviewed. The patient could be transferred out to the general medical floor, with telemetry. We will continue to follow and make recommendations along the way. Plan dated January 31, 2024. The patient is seen in room 256. The patient is doing much better. He is on 5 L. He did not use the BiPAP device. Labs, x-rays, medications are reviewed. He is continues on Zosyn. He is getting saline at KVO. He will get another unit of blood for hemoglobin of 6.5. Labs, x-rays, and medications are re viewed. No additional recommendations at this time. We will continue to follow make recommendations were appropriate. The patient could be transferred to the general medical floor. Time with Patient: Less than 30
--- NOTE | 2024-01-31 15:17 | CA ---
Transthoracic Echo Report Name: Christopher Fonseca Age: 78 Gender: M : 1945 Exam Date: 01/28/2024 09:06 Exam Location: [facility] Ht (in): 71 Wt (lb): 200 Ordering Physician: Steve Keita MD Attending/Referring Phys: Management Recruiter Stefany Pollock RDCS Procedure CPT: Indications: new onset afib, dyspnea Cardiac Hx: Technical Quality: Fair Contrast 1: Total Dose (mL): Contrast 2: Total Dose (mL): MEASUREMENTS (Male / Female) Normal Values 2D ECHO LV Diastolic Diameter PLAX 5.3 cm 4.2 - 5.9 / 3.9 - 5.3 cm LV Systolic Diameter PLAX 2.7 cm IVS Diastolic Thickness 1.1 cm 0.6 - 1.0 / 0.6 - 0.9 cm LVPW Diastolic Thickness 1.4 cm 0.6 - 1.0 / 0.6 - 0.9 cm LV Relative Wall Thickness 0.5 RV Internal Dim ED PLAX 4.7 cm LA Systolic Diameter LX 5.1 cm 3.0 - 4.0 / 2.7 - 3.8 cm LV Diastolic Volume MOD 4C 65.9 cm??? LV Systolic Volume MOD 4C 24.6 cm??? LV Ejection Fraction MOD 4C 62.7 % LV Cardiac Index MOD 4C 2269.8 cm???/min???m??? LV Diastolic Length 4C 6.9 cm LV Systolic Length 4C 6.0 cm M-MODE Aortic Root Diameter MM 3.4 cm LA Systolic Diameter MM 3.5 cm LA Ao Ratio MM 1.0 AV Cusp Separation MM 1.9 cm DOPPLER LVOT Peak Velocity 113.6 cm/s LVOT Peak Gradient 5.2 mmHg TR Peak Velocity 302.7 cm/s TR Peak Gradient 36.6 mmHg Right Ventricular Systolic Press 51.5 mmHg PV Peak Velocity 132.5 cm/s PV Peak Gradient 7.0 mmHg FINDINGS Left Ventricle Left ventricular ejection fraction is estimated at 60-65%. Mildly increased septal wall thickness. No obvious regional wall motion abnormalities. Normal left ventricular wall motion. Right Ventricle Normal right ventricular global systolic function. Moderate right ventricular dilatation. Right ventricular systolic pressure estimated at 51 mm hg. Moderate pulmonary hypertension. Right Atrium Moderate right atrial dilatation. Left Atrium Moderately increased left atrial diameter. Mitral Valve Structurally normal mitral valve. Mild mitral regurgitation. Aortic Valve No aortic stenosis. No aortic regurgitation. Trileaflet aortic valve. Tricuspid Valve Mild tricuspid regurgitation. Mild tricuspid regurgitation. Pulmonic Valve No pulmonic stenosis. Structurally normal pulmonic valve. Trace pulmonic regurgitation. Pericardium Prominent epicardial fat. Aorta Normal size aortic root and proximal ascending aorta. CONCLUSIONS Hyperdynamic LV Enlarged right ventricle with moderate pulmonary hypertension Previewed by: Dr. Long Burns MD (Electronically Signed) Final Date: 31 January 2024 15:16
--- NOTE | 2024-01-31 16:12 | P.PN ---
Subjective Progress Note Date: 01/30/24 Principal diagnosis: Reason for follow-up is sepsis and pneumonia Patient is a 78-year-old male with a past medical history significant for multiple myeloma previously has been on chemotherapy and hypertension presenting to the hospital with increasing shortness of breath patient did have a fever elevated procalcitonin CT of the chest with pneumonitis/pneumonia. On today's evaluation that is 01/30/2024,the patient denies any fever or any chills, patient is breathing comfortably slightly comfortably currently on 5 L nasal cannula oxygen, the patient denies chest pain cough is slightly decreased in intensity, patient denies abdominal pain, no nausea vomiting or diarrhea. Patient white count is up to 1.9, creatinine 0.73 Objective - Vital Signs Vital signs: Vital Signs Temp 98.2 F 01/30/24 08:00 Pulse 117 H 01/30/24 10:00 Resp 34 H 01/30/24 10:00 BP 142/76 01/30/24 10:00 Pulse Ox 95 01/30/24 10:00 FiO2 50 01/30/24 00:11 Intake & Output 01/29/24 01/30/24 01/30/24 18:59 06:59 18:59 Intake Total 945 110 130 Output Total 815 865 260 Balance 130 -755 -130 Weight 91.4 kg Intake: IV 810 110 130 0.9 30 Piperacillin-Tazobactam 3 200 100 100 .375 gm In Sodium Chloride 0.9% 100 ml @ 25 mls/hr IVPB Q8HR [facility] Rx# :[id number] Sodium Chloride 0.9% 1, 110 10 000 ml @ 75 mls/hr IV . [id number] [facility] Rx#:[id number] Vancomycin 1,500 mg In 500 Sodium Chloride 0.9% 500 ml 500 ml @ 167 mls/hr IVPB ONCE ONE Rx#: [id number] Intake, IV Titration 135 Amount Diltiazem 125 mg In 135 Sodium Chloride 0.9% 100 ml @ Per Protocol IV .Q0M [facility] Rx#:[id number] Output: Urine 815 865 260 Other: Voiding Method Indwelling Catheter Indwelling Catheter Indwelling Catheter - Exam GENERAL DESCRIPTION: An elderly male up in the chair in no distress RESPIRATORY SYSTEM: Unlabored breathing , coarse breath sounds bilaterally HEART: S1 S2 regular rate and rhythm , ABDOMEN: Soft , no tenderness EXTREMITIES: No edema feet - Labs CBC & Chem 7: 01/31/24 05:11 01/31/24 05:11 Labs: Abnormal Lab Results - Last 24 Hours (Table) 01/28/24 01/30/24 01/30/24 Range/Units 12:03 07:02 07:02 WBC 1.9 L (3.8-10.6) k/uL RBC 2.28 L (4.30-5.90) m/uL Hgb 7.1 L (13.0-17.5) gm/dL Hct 21.8 L (39.0-53.0) % RDW 16.2 H (11.5-15.5) % Plt Count 95 L (150-450) k/uL Lymphocytes # 0.4 L (1.0-4.8) k/uL Chloride 113 H (98-107) mmol/L BUN 21 H (9-20) mg/dL Glucose 110 H (74-99) mg/dL Calcium 7.4 L (8.4-10.2) mg/dL Total Bilirubin 2.6 H (0.2-1.3) mg/dL AST 16 L (17-59) U/L Alkaline Phosphatase 203 H (38-126) U/L Total Protein 5.0 L (6.3-8.2) g/dL Albumin 2.1 L (3.5-5.0) g/dL RBC Folate 858 H (280 - 791) ng/mL Microbiology - Last 24 Hours (Table) 01/28/24 18:35 Nasal Screen MRSA/MSSA - Final Nasal Swab 01/28/24 18:35 Gram Stain - Preliminary Sputum 01/28/24 06:35 Blood Culture - Preliminary Blood 01/28/24 06:20 Blood Culture - Preliminary Blood Assessment and Plan (1) Pneumonitis Current Visit: Yes Status: Acute Code(s): J98.4 - OTHER DISORDERS OF LUNG SNOMED Code(s): 069187699 Plan: 1patient presented to hospital with sepsis in this patient who did have a low-grade fever tachycardia leukopenia source is likely pneumonia in this patient who did have a history of multiple myeloma and did have a significantly low white count will need to cover for resistant gram-negative to be the likely pathogen less likely MRSA 2-blood and sputum culture have been obtained and results are currently pending 3-patient to continue Zosyn and monitor clinical course closely Dictation was produced using tocario dictation software. please excuse any grammatical, word or spelling errors. Time with Patient: Less than 30
--- NOTE | 2024-01-31 16:14 | P.PN ---
Subjective Progress Note Date: 01/31/24 Principal diagnosis: Reason for follow-up is sepsis and pneumonia Patient is a 78-year-old male with a past medical history significant for multiple myeloma previously has been on chemotherapy and hypertension presenting to the hospital with increasing shortness of breath patient did have a fever elevated procalcitonin CT of the chest with pneumonitis/pneumonia. On today's evaluation that is 01/31/2024,the patient remains to be afebrile, patient is on 5 L nasal cannula supplemental oxygen and denies any shortness of breath no chest pain patient did have a cough and bringing up some sputum.Patient denies having any nausea or vomiting, no abdominal pain and no di arrhea has been reported. The patient white count is 1.9, creatinine 0.70, blood and sputum cultures currently pending Objective - Vital Signs Vital signs: Vital Signs Temp 98.2 F 01/31/24 14:34 Pulse 92 01/31/24 15:46 Resp 18 01/31/24 15:46 BP 126/73 01/31/24 14:34 Pulse Ox 95 01/31/24 14:34 FiO2 50 01/31/24 09:50 Intake & Output 01/30/24 01/31/24 01/31/24 18:59 06:59 18:59 Intake Total 792 20 6685 Output Total 510 725 400 Balance -200 -645 700 Intake: IV 310 80 10 0.9 110 80 Invasive Line 1 10 Piperacillin-Tazobactam 3 200 .375 gm In Sodium Chloride 0.9% 100 ml @ 25 mls/hr IVPB Q8HR [facility] Rx# :[id number] Oral 780 Blood Product 310 Rc As-1 Unit 310 [id number] Output: Urine 510 725 400 Other: Voiding Method Indwelling Catheter Indwelling Catheter Indwelling Catheter - Exam GENERAL DESCRIPTION: An elderly male up in the chair in no distress RESPIRATORY SYSTEM: Unlabored breathing , coarse breath sounds bilaterally HEART: S1 S2 regular rate and rhythm , ABDOMEN: Soft , no tenderness EXTREMITIES: No edema feet - Labs CBC & Chem 7: 01/31/24 05:11 01/31/24 05:11 Labs: Abnormal Lab Results - Last 24 Hours (Table) 01/31/24 01/31/24 01/31/24 Range/Units 05:11 05:11 07:39 WBC 1.9 L (3.8-10.6) k/uL RBC 2.13 L (4.30-5.90) m/uL Hgb 6.5 L* (13.0-17.5) gm/dL Hct 20.6 L (39.0-53.0) % RDW 16.0 H (11.5-15.5) % Plt Count 113 L (150-450) k/uL Lymphocytes # 0.3 L (1.0-4.8) k/uL Chloride 111 H (98-107) mmol/L Glucose 111 H (74-99) mg/dL Calcium 7.4 L (8.4-10.2) mg/dL Total Bilirubin 2.2 H (0.2-1.3) mg/dL Alkaline Phosphatase 180 H (38-126) U/L Total Protein 4.8 L (6.3-8.2) g/dL Albumin 2.1 L (3.5-5.0) g/dL Crossmatch See Detail Microbiology - Last 24 Hours (Table) 01/28/24 06:35 Blood Culture - Preliminary Blood 01/28/24 06:20 Blood Culture - Preliminary Blood 01/28/24 18:35 Gram Stain - Final Sputum Sputum Culture - Final Assessment and Plan (1) Pneumonitis Current Visit: Yes Status: Acute Code(s): J98.4 - OTHER DISORDERS OF LUNG SNOMED Code(s): 975256891 Plan: 1patient presented to hospital with sepsis in this patient who did have a low- grade fever tachycardia leukopenia source is likely pneumonia in this patient who did have a history of multiple myeloma and did have a significantly low white count will need to cover for resistant gram-negative to be the likely pathogen less likely MRSA 2-blood and sputum culture have been obtained and results are currently pending 3-patient seem to have shown some clinical improvement and will continue Zosyn while waiting for the culture to finalize Family at the bedside question answered Dictation was produced using [email or web address] dictation software. please excuse any grammatical, word or spelling errors. Time with Patient: Less than 30
--- NOTE | 2024-01-31 16:25 | P.PN ---
Subjective Progress Note Date: 01/31/24 Christopher Fonseca, is a 78-year-old male who presented to [facility] emergency room with a chief complaint of worsening shortness of breath. patient has a known history of multiple myeloma, followed by oncology. He was evaluated in the emergency room vital examination on presentation reveale d a temperature of 97.8 pulse 137 respiration 22 blood pressure 128/58 pulse ox 86% on 4 L nasal cannula Laboratory data reveals a white blood count of 1.7 hemoglobin 5.9 platelet count 125 d-dimer 1.3 ABG revealed a pH of 7.41 pCO2 37 by mouth to 154 BUN 37 creatinine 1.03 Testing in the emergency room revealed CT angiogram of the chest revealed no evidence of pulmonary embolism chest x-ray was suggestive of acute bronchitis with pneumonitis, EKG revealed evidence of atrial fibrillation with rapid ventricular response Patient was admitted to intensive care unit, he was started on IV antibiotics, pulmonary cardiology and oncology consultation were requested. on 01/29/2024 patient's alert and oriented resting comfortably in bed. Patient remains in the intensive care unit patient is having increased coughing. Concerns per nursing staff about possible aspiration on water. Speech services will be consulted.patient remains on IV Cardizem. Patient also on IV antibiotics vancomycin and Zosyncurrent vital signs temp 98.1, heart rate 85, Respiratory rate 29, blood pressure 109/63 with a pulse ox 96% on 6 L On 01/30/2024 patient's alert and oriented resting comfortably in bed. Patient remains in the intensive care unit. Patient was evaluated by speech services dietary recommendations in chart. Infectious disease services are following.Patient remains on IV antibiotics Zosyn. White blood cell improving to 1.9. Cardiology, pulmonary, oncology and infectious disease service is following On 01/31/2024 patient was seen is alert and oriented 3 in no apparent distress, he is resting comfortably in bed, he is complaining of cough and shortness of breath, otherwise he denies any complaints, he is still maintained on oxygen 4 L via nasal cannula, there is no fever or chills no headache or dizziness no chest pain no nausea or vomiting no abdominal pain no diarrhea, no urinary symptoms Canseco catheter is in, patient remains on IV antibiotic Zosyn, hemoglobin today is down to 6.5, 1 unit of red blood cell transfusion was ordered Objective - Vital Signs Vital signs: Vital Signs Temp 98.5 F 01/31/24 11:26 Pulse 98 01/31/24 12:17 Resp 18 01/31/24 12:17 BP 137/76 01/31/24 11:26 Pulse Ox 96 01/31/24 11:26 FiO2 50 01/31/24 09:50 Intake & Output 01/30/24 01/31/24 01/31/24 18:59 06:59 18:59 Intake Total 310 80 250 Output Total 510 725 400 Balance -200 -645 -150 Intake: IV 310 80 10 0.9 110 80 Invasive Line 1 10 Piperacillin-Tazobactam 3 200 .375 gm In Sodium Chloride 0.9% 100 ml @ 25 mls/hr IVPB Q8HR [facility] Rx# :[id number] Oral 240 Blood Product 0 Unit 0 Output: Urine 510 725 400 Other: Voiding Method Indwelling Catheter Indwelling Catheter Indwelling Catheter - Exam Head normocephalic Neck supple Lungs expiratorywheezing Heart regular rate and rhythm S1-S2, no rub or gallop Abdomen is soft nontender nondistended positive bowel sounds no hepatosplenomegaly Extremities no edema Neuro alert and orientated to 3 - Labs CBC & Chem 7: 01/31/24 05:11 01/31/24 05:11 Labs: Abnormal Lab Results - Last 24 Hours (Table) 01/31/24 01/31/24 01/31/24 Range/Units 05:11 05:11 07:39 WBC 1.9 L (3.8-10.6) k/uL RBC 2.13 L (4.30-5.90) m/uL Hgb 6.5 L* (13.0-17.5) gm/dL Hct 20.6 L (39.0-53.0) % RDW 16.0 H (11.5-15.5) % Plt Count 113 L (150-450) k/uL Lymphocytes # 0.3 L (1.0-4.8) k/uL Chloride 111 H (98-107) mmol/L Glucose 111 H (74-99) mg/dL Calcium 7.4 L (8.4-10.2) mg/dL Total Bilirubin 2.2 H (0.2-1.3) mg/dL Alkaline Phosphatase 180 H (38-126) U/L Total Protein 4.8 L (6.3-8.2) g/dL Albumin 2.1 L (3.5-5.0) g/dL Crossmatch See Detail Microbiology - Last 24 Hours (Table) 01/28/24 18:35 Gram Stain - Final Sputum Sputum Culture - Final 01/28/24 06:35 Blood Culture - Preliminary Blood 01/28/24 06:20 Blood Culture - Preliminary Blood 01/28/24 18:35 Nasal Screen MRSA/MSSA - Final Nasal Swab Assessment and Plan Plan: Acute hypoxic respiratory failure New onset atrial fibrillation with RVR.per cardiology sinus tachycardia no evidence of atrial fibrillation acute purulent bronchitis with possible pneumonia acute metabolic acidosis History of multiple myeloma. Anemia, S/P packed red blood cell transfusion. Pancytopenia, secondary to chemotherapeutic agent. underlying history of hypertension. at this time patient is admitted to intensive care unit He was started on BiPAP patient was started on IV antibiotics Home medications reviewed and reordered Pulmonary and cardiology consultation requested Also oncology consultation requested in regard to multiple myeloma Will follow closely
--- NOTE | 2024-01-31 17:17 | P.PN ---
Subjective HISTORY OF PRESENTING ILLNESS This is a pleasant 78-year-old male with history of multiple myeloma, hypertension. Patient normally is fairly healthy and takes multiple walks and is fairly active. He has been managed for his multiple myeloma and has been on Revlimid. This was started approximately 2 months ago. He presents secondary to multiple symptoms mainly of fevers, chills, cough and fatigue. Symptoms have been going on over the last few days along with his who is having similar symptoms. He has had worsening shortness breath and therefore presented to emergency department. He was found to be in respiratory distress and placed on BiPAP. He still had increased respiratory rate up into the 40s and 50s in addition was given Ativan and currently more sedated however or comfortable with respiratory rate more in the 30s. He had blood work including white blood cell count 1.7, hemoglobin 5.9, platelets 125. D-dimer was elevated at 1.[address] PE protocol was performed which showed no pulmonary embolism however pneumonitis. There is no significant pleural effusion. ProBNP 1230. Troponin mildly elevated at 0.02. He has no history of CAD. Cardiology was consult that secondary to Pamella anne. Initial EKG read out as atrial fibrillation however it is regular at parts and clearly P waves consistent with sinus r hythm/multifocal atrial tachycardia. Patient was having much increased ectopy however since sedation has clearly been sinus rhythm, sinus tachycardia. He was given blood transfusion somewhat more calm. 01/28 patient seen and examined. He states he is feeling somewhat better. He is currently on 5 L nasal cannula and more comfortable. He denies any fevers or chills. He denies chest pain. His telemetry shows sinus tachycardia with heart rates in the 100-120 range. He has been on Cardizem drip at 5 however no actual H [place] noted in much clear sinus tachycardia with P waves and no further i rregularity. 01/29 patient seen and examined. Patient feels much better. Echocardiogram personally reviewed with preserved EF and without significant valvular disease. His Cardizem drip was discontinued. Remains in sinus rhythm with sinus tachycardia however denies any palpitations and is feeling somewhat better today in terms of shortness breath. 01/30 patient seen and examined. Patient denies any chest pain or pressure. He is still short of breath. Hemoglobin of 6.5. Echocardiogram result reviewed with EF 60-65% with mildly elevated RVSP. PHYSICAL EXAMINATION Vital signs reviewed. CONSTITUTIONAL: No apparent distress, ill-appearing. HEENT: Head is normocephalic. Pupils are equal, round. Sclerae anicteric. Mucous membranes of the mouth are moist. No JVD. No carotid bruit. CHEST EXAMINATION: Lungs are clear to auscultation. No chest wall tenderness is noted on palpation or with deep breathing. HEART EXAMINATION: tachycardic, Regular rhythm. S1, S2 heard. No murmurs, gallops or rub. ABDOMEN: Soft, nontender. Positive bowel sounds. EXTREMITIES: 2+ peripheral pulses, no lower extremity edema and no calf tenderness. NEUROLOGIC EXAMINATION: Patient is awake, alert and oriented x3. ASSESSMENT Acute on chronic respiratory failure, mainly related to pneumonia Sinus tachycardia/multifocal atrial tachycardia. No evidence of atrial fibrillation Hypertension Sepsis Pancytopenia Multiple myeloma Non-STEMI likely type II mechanism related to respiratory distress PLAN His pancytopenia is mildly improving and echo showing preserved EF without significant valvular disease. patient with sinus tachycardia likely related to anemia and multiple comorbidities including COPD, respiratory failure with no evidence of A. fib. Continue current supportive care. No further recommendations from cardiology standpoint. Please call with any questions. Objective - Vital Signs Vital signs: Vital Signs Temp 98.8 F 01/31/24 16:16 Pulse 108 H 01/31/24 17:00 Resp 18 01/31/24 16:16 BP 131/83 01/31/24 16:16 Pulse Ox 95 01/31/24 16:16 FiO2 50 01/31/24 09:50 Intake & Output 01/30/24 01/31/24 01/31/24 18:59 06:59 18:59 Intake Total 389 68 0524 Output Total 510 725 775 Balance -200 -645 325 Intake: IV 310 80 10 0.9 110 80 Invasive Line 1 10 Piperacillin-Tazobactam 3 200 .375 gm In Sodium Chloride 0.9% 100 ml @ 25 mls/hr IVPB Q8HR [facility] Rx# :[id number] Oral 780 Blood Product 310 Rc As-1 Unit 310 [id number] Output: Urine 510 725 775 Other: Voiding Method Indwelling Catheter Indwelling Catheter Indwelling Catheter - Labs CBC & Chem 7: 01/31/24 05:11 01/31/24 05:11 Labs: Abnormal Lab Results - Last 24 Hours (Table) 01/31/24 01/31/24 01/31/24 Range/Units 05:11 05:11 07:39 WBC 1.9 L (3.8-10.6) k/uL RBC 2.13 L (4.30-5.90) m/uL Hgb 6.5 L* (13.0-17.5) gm/dL Hct 20.6 L (39.0-53.0) % RDW 16.0 H (11.5-15.5) % Plt Count 113 L (150-450) k/uL Lymphocytes # 0.3 L (1.0-4.8) k/uL Chloride 111 H (98-107) mmol/L Glucose 111 H (74-99) mg/dL Calcium 7.4 L (8.4-10.2) mg/dL Total Bilirubin 2.2 H (0.2-1.3) mg/dL Alkaline Phosphatase 180 H (38-126) U/L Total Protein 4.8 L (6.3-8.2) g/dL Albumin 2.1 L (3.5-5.0) g/dL Crossmatch See Detail Microbiology - Last 24 Hours (Table) 01/28/24 06:35 Blood Culture - Preliminary Blood 01/28/24 06:20 Blood Culture - Preliminary Blood 01/28/24 18:35 Gram Stain - Final Sputum Sputum Culture - Final
--- NOTE | 2024-02-01 09:55 | P.PN ---
Subjective Progress Note Date: 02/01/24 Christopher Fonseca, is a 78-year-old male who presented to [facility] emergency room with a chief complaint of worsening shortness of breath. patient has a known history of multiple myeloma, followed by oncology. He was evaluated in the emergency room vital examination on presentation reveale d a temperature of 97.8 pulse 137 respiration 22 blood pressure 128/58 pulse ox 86% on 4 L nasal cannula Laboratory data reveals a white blood count of 1.7 hemoglobin 5.9 platelet count 125 d-dimer 1.3 ABG revealed a pH of 7.41 pCO2 37 by mouth to 154 BUN 37 creatinine 1.03 Testing in the emergency room revealed CT angiogram of the chest revealed no evidence of pulmonary embolism chest x-ray was suggestive of acute bronchitis with pneumonitis, EKG revealed evidence of atrial fibrillation with rapid ventricular response Patient was admitted to intensive care unit, he was started on IV antibiotics, pulmonary cardiology and oncology consultation were requested. on 01/29/2024 patient's alert and oriented resting comfortably in bed. Patient remains in the intensive care unit patient is having increased coughing. Concerns per nursing staff about possible aspiration on water. Speech services will be consulted.patient remains on IV Cardizem. Patient also on IV antibiotics vancomycin and Zosyncurrent vital signs temp 98.1, heart rate 85, Respiratory rate 29, blood pressure 109/63 with a pulse ox 96% on 6 L On 01/30/2024 patient's alert and oriented resting comfortably in bed. Patient remains in the intensive care unit. Patient was evaluated by speech services dietary recommendations in chart. Infectious disease services are following.Patient remains on IV antibiotics Zosyn. White blood cell improving to 1.9. Cardiology, pulmonary, oncology and infectious disease service is following On 01/31/2024 patient was seen is alert and oriented 3 in no apparent distress, he is resting comfortably in bed, he is complaining of cough and shortness of breath, otherwise he denies any complaints, he is still maintained on oxygen 4 L via nasal cannula, there is no fever or chills no headache or dizziness no chest pain no nausea or vomiting no abdominal pain no diarrhea, no urinary symptoms Canseco catheter is in, patient remains on IV antibiotic Zosyn, hemoglobin today is down to 6.5, 1 unit of red blood cell transfusion was ordered On for patient's alert and oriented 3. Patient reports improvement.Current vital signs temp 97.4, heart rate 110, respiratory rate 18, blood pressure 124/68 with a pulse ox 92% on 5 L. Repeat blood work has been ordered. Patient denies chest pain or shortness of breath. Patient denies nausea vomiting or diarrhea. Patient denies any urinary burning or frequency Objective - Vital Signs Vital signs: Vital Signs Temp 97.4 F L 02/01/24 07:14 Pulse 108 H 02/01/24 08:08 Resp 22 02/01/24 07:14 BP 124/68 02/01/24 07:14 Pulse Ox 92 L 02/01/24 08:03 FiO2 50 01/31/24 09:50 Intake & Output 01/31/24 02/01/24 02/01/24 18:59 06:59 18:59 Intake Total 1100 250 Output Total 775 525 Balance 325 -275 Intake: IV 10 10 Invasive Line 1 10 10 Oral 780 240 Blood Product 310 Rc As-1 Unit 310 [id number] Output: Urine 775 525 Other: Voiding Method Indwelling Catheter Indwelling Catheter - Exam Head normocephalic Neck supple Lungs expiratorywheezing Heart regular rate and rhythm S1-S2, no rub or gallop Abdomen is soft nontender nondistended positive bowel sounds no hepatosplenomegaly Extremities no edema Neuro alert and orientated to 3 - Labs CBC & Chem 7: 01/31/24 05:11 01/31/24 05:11 Labs: Abnormal Lab Results - Last 24 Hours (Table) 01/31/24 Range/Units 07:39 Crossmatch See Detail Microbiology - Last 24 Hours (Table) 01/28/24 06:35 Blood Culture - Preliminary Blood 01/28/24 06:20 Blood Culture - Preliminary Blood 01/28/24 18:35 Gram Stain - Final Sputum Sputum Culture - Final Assessment and Plan Plan: Acute hypoxic respiratory failure New onset atrial fibrillation with RVR.per cardiology sinus tachycardia no evidence of atrial fibrillation acute purulent bronchitis with possible pneumonia acute metabolic acidosis History of multiple myeloma. Anemia, S/P packed red blood cell transfusion. Pancytopenia, secondary to chemotherapeutic agent. underlying history of hypertension. Patient has been transferred out of the intensive care unit He was started on BiPAP patient was started on IV antibiotics Home medications reviewed and reordered Pulmonary and cardiology consultation requested Also oncology consultation requested in regard to multiple myeloma Will follow closely
--- NOTE | 2024-02-01 11:37 | P.PN ---
Subjective Progress Note Date: 02/01/24 Principal diagnosis: Shortness of breath. 78-year-old male who was seen in the emergency department, beginning on January 27, at 4:30 in the morning. The patient has a history of multiple myeloma, and hypertension. Over the last few days or so, the patient and his , have both been sick with an upper respiratory tract infection. It caused him to have significant shortness of breath, and weakness, over the last week or so. Because the shortness of breath was worsening, the patient decided to be evaluated in the emergency department. The patient was seen in the emergency department, by the ER physician, and was also briefly seen by my nurse practitioner. The patient is being admitted with the possibility of infection in the lung, and, anemia, as well as atrial fibrillation with RVR. Currently, the patient is on BiPAP, with settings of 14/6 and 50%. The patient is getting saline at 75 cc an hour. The patient's hemoglobin was 5.9. 1 unit of blood was ordered. The patient was placed on a Cardizem drip, at 5 mg an hour. He was also given vancomycin and Zosyn for possible pneumonia. Laboratory data includes a white count 1.7, hemoglobin 5.9, hematocrit 17.7, and a platelet count of 125,000. D-dimer was 1.32. Venous blood gases showed a pH of 7.38 and a pCO2 of 37. Sodium 138, potassium 4.1, chlorides 107, CO2 18, anion gap 13, BUN 37, and creatinine 1.03. Glucose was 235. Repeat was 148. Lactic acid was 7.6, calcium 7.9, albumin 2.6. N-terminal proBNP was 1230. Troponin was 0.027. Urine appears relatively benign. He tested negative for influenza A, B, RSV, and coronavirus. Chest x-ray shows some patchy pneumonitis. CT angiogram was negative for pulmonary embolism, but did show some changes of pneumonitis, particularly in the lower lobes the right middle lobe. Infectious, or inflammatory etiology was proposed. Progress note dated January 29, 2024. 78-year-old male seen yesterday in consultation. The patient has a history of m ultiple myeloma and hypertension, and came into the hospital with an acute respiratory infection, possibly pneumonia. The patient was on BiPAP yesterday, and is currently on 5 L nasal cannula. He did use BiPAP last night for about 4 hours, with settings of 16/8, and 50%. The patient is on Cardizem at 5 mg an hour for his atrial fibrillation, normal saline at 20 cc an hour, and the patient continues on vancomycin and Zosyn. Clinically, he feels a lot better, and looks a lot better. White count is 1.4, hemoglobin 7.1, hematocrit 23.1, and platelet count 98,000. Sodium 141, potassium 4.4, chlorides 114, CO2 21, BUN 29, creatinine 0.79. Glucose 127. Calcium 7.2, total bilirubin 2.5. Alb umin is 2.1. Procalcitonin level is 2.12. Urine is essentially negative. Chest x-ray shows minimal infiltrates bilaterally. Progress note dated January 30, 2024. 78-year-old male admitted with a diagnosis of possible pneumonia and respiratory failure. Currently he is seen in the intensive care unit, room 256. He is currently on nasal cannula at 5 L. He did use the BiPAP device last night, for a couple of hours, with settings of 16/8 and 50%. The patient continues on Zosyn. The patient could be transferred out to the general medical floor with telemetry. Will add some Tessalon Perles, for his cough. White count 1.9, hemoglobin 7.1, hematocrit 21.8, and platelet count was 95,000. Sodium 140, potassium 4, chlorides 113, CO2 23, BUN 21, creatinine 0.73. Calcium 7.4. Total bilirubin 2.6. Albumin is 2.1. Microbiologic studies are negative or pending. Chest x-ray shows some chronic changes, without an acute disease process. Progress note dated January 31, 2024. 78-year-old admitted with a diagnosis of pneumonia and respiratory failure. He is seen today in room 256. He is currently on 5 L nasal cannula. He is getting saline at KVO. He continues on Zosyn. He will receive another unit of blood. He has received a total of 2 units of PRBCs. Today's hemoglobin was 6.5. Today's labs include a white count 1.9, hemoglobin 6.5, hematocrit 20.6, and a platelet count of 113,000. Sodium 140, potassium 4.2, chloride 111, CO2 25, BUN 19, and creatinine 0.7. Glucose is 111. Calcium is 7.4, bilirubin 2.2. Albumin 2.1. Blood cultures and sputum sampling is negative thus far. No chest x-ray today. Progress note dated February 01, 2024. The patient is seen today in room 453. He is feeling much better. He is on 5 L of oxygen by nasal cannula. He continues on Zosyn. He has no specific complaints today. His breathing is much improved. He talks about getting out o f the hospital, and playing golf. Current labs include a white count 1.9, hemoglobin 6.5, hematocrit 20.6, platelet count 113,000. Sodium 140, potassium 4.2, chloride 111, CO2 25, BUN 19, creatinine 0.7. Calcium is 7.4. Albumin is 2.1. Microbiologic studies are thus far negative. No chest x-ray today. Objective - Vital Signs Vital signs: Vital Signs Temp 97.4 F L 02/01/24 07:14 Pulse 110 H 02/01/24 11:19 Resp 22 02/01/24 08:59 BP 124/68 02/01/24 07:14 Pulse Ox 92 L 02/01/24 08:03 FiO2 50 01/31/24 09:50 Intake & Output 01/31/24 02/01/24 02/01/24 18:59 06:59 18:59 Intake Total 1100 250 Output Total 775 525 Balance 325 -275 Intake: IV 10 10 Invasive Line 1 10 10 Oral 780 240 Blood Product 310 Rc As-1 Unit 310 [id number] Output: Urine 775 525 Other: Voiding Method Indwelling Catheter Indwelling Catheter # Voids 1 # Bowel Movements 1 - Exam Minimal dyspnea, currently on nasal cannula. Patient on 5 L. HEENT examination is grossly unremarkable. Neck supple. Full range of motion. No adenopathy thyromegaly or neck vein distention. Cardiovascular examination reveals an irregular rhythm and rate. Heart rate about 98 bpm. Heart sounds are distant. No distinct murmur. Lungs reveal mostly clear breath sounds. Minimal scattered rhonchi. No wheezes or crackles. Saturations are 94 %. Patient on 5 L nasal cannula. Abdomen soft, with bowel sounds. No tenderness. Extremities are intact. No cyanosis clubbing or edema. Skin is without rash or lesion. Neurologic examination is brief but nonfocal. - Labs CBC & Chem 7: 01/31/24 05:11 01/31/24 05:11 Labs: Abnormal Lab Results - Last 24 Hours (Table) 01/31/24 Range/Units 07:39 Crossmatch See Detail Microbiology - Last 24 Hours (Table) 01/28/24 06:35 Blood Culture - Preliminary Blood 01/28/24 06:20 Blood Culture - Preliminary Blood 01/28/24 18:35 Gram Stain - Final Sputum Sputum Culture - Final Assessment and Plan Assessment: Acute hypoxemic respiratory failure, likely multifactorial, in part related to possible pneumonia, and exacerbated by new onset atrial fibrillation/RVR. History of multiple myeloma. Anemia, S/P packed red blood cell transfusion. Pancytopenia, secondary to chemotherapeutic agent. Anion gap metabolic acidosis. Lactic acidemia. History of hypertension. Plan: Plan dated January 28, 2024. The patient is admitted to the intensive care unit for further monitoring and management. The patient was seen in the emergency department initially, and transferred to the intensive care unit. The patient was placed on BiPAP, initially at 14/6 and 50%. Subsequent to that, respiratory therapy has made some adjustments. The patient's hemoglobin was only 5.9. The patient is to receive 1 unit of packed red blood cells. The patient continues on vancomycin and Zosyn. The patient also continues on Cardizem at 10 mg an hour. Initially it was only at 5 mg an hour. I also decided to give the patient a small dose of Ativan, to try to settle him down. The patient is receiving saline at 75 cc an hour. We did give the patient's an update. Plan dated January 29, 2024. The patient is seen today in room 256. The patient has been weaned down to nasal cannula between 5 to 6 L. His respiratory status is much improved. The patient continues on antibiotics in the form of vancomycin and Zosyn. The patient also continues on Cardizem drip at 5 mg an hour, for his atrial fibrillation. Labs, x-rays, and medications are reviewed. The patient did use BiPAP last night for about 4 hours. Currently he is on 5 L nasal cannula. We will continue to follow and make recommendations along the way. All culture data is negative thus far. Plan dated January 30, 2024. The patient is seen today in room 256. The patient is doing much better. He did use the BiPAP last night for couple hours at, 16/8, and 50%. Currently he is on nasal O2 at 5 L. He is getting saline at KVO. He continues on Zosyn. Will add some Tessalon Perles for his cough. Labs, x-rays, medications are reviewed. The patient could be transferred out to the general medical floor, with telemetry. We will continue to follow and make recommendations along the way. Plan dated January 31, 2024. The patient is seen in room 256. The patient is doing much better. He is on 5 L. He did not use the BiPAP device. Labs, x-rays, medications are reviewed. He is continues on Zosyn. He is getting saline at KVO. He will get another unit of blood for hemoglobin of 6.5. Labs, x-rays, and medications are reviewed. No additional recommendations at this time. We will continue to follow make recommendations were appropriate. The patient could be transferred to the general medical floor. Plan dated February 01, 2024. Patient appears to be doing relatively well. He was transferred out of the intensive care unit, and into room 453. He continues on oxygen at 5 L. He also continues on Zosyn IV. Labs, x-rays, medications are reviewed. Clinically, he feels better, denies any specific shortness of breath, cough, wheezing, chest tightness, or phlegm production. He denies any fever or chills. He has received a couple units of blood already thus far, and his hemoglobin this morning is also low again. We will continue to follow make recommendations. Prognosis is guarded. Time with Patient: Less than 30
[2024-02-01 13:46] LABS: Basophils % (A) 0 %; Eosinophils % (A) 1 %; HCT 24.7 % (39.0-53.0); HGB 7.9 gm/dL (13.0-17.5); Lymphocytes # (A) 0.4 k/uL (1.0-4.8); Lymphocytes % (A) 16 %; MCH 30.5 pg (25.0-35.0); MCHC 32.1 g/dL (31.0-37.0); MCV 95.1 fL (80.0-100.0); Mean Platelet Volume 10.8; Monocytes # (A) 0.1 k/uL (0-1.0); Monocytes % (A) 4 %; Neutrophils % (A) 77 %; Platelet Count 138 k/uL (150-450); RDW 15.6 % (11.5-15.5); WBC 2.6 k/uL (3.8-10.6)
[2024-02-01 13:57] LABS: ALT 46 U/L (4-49); AST 27 U/L (17-59); African American GFR (CKD) >90 (>60 ml/min/1.73 sqM); Albumin 2.1 g/dL (3.5-5.0); Alkaline Phosphatase 149 U/L (38-126); Anion Gap 4 mmol/L; Blood Urea Nitrogen 15 mg/dL (9-20); Calcium 7.6 mg/dL (8.4-10.2); Carbon Dioxide 24 mmol/L (22-30); Chloride 108 mmol/L (98-107); Glucose 150 mg/dL (74-99); Non-African American GFR(CKD) >90 (>60 ml/min/1.73 sqM); Potassium 3.6 mmol/L (3.5-5.1); Sodium 136 mmol/L (137-145); Total Bilirubin 2.5 mg/dL (0.2-1.3)
--- NOTE | 2024-02-01 14:15 | P.CONS ---
History of Present Illness - Reason for Consult Consult date: 02/01/24 - History of Present Illness 78-year-old male with history of MM presented to the ED with URI. He lives in a multi level home with main bed on main floor. He lives with . 2 SEFERINO. No assistive devices. He is very active at baseline. He was driving. During his hospital stay he required BiPAP and was treated with IV abx for suspected PNA. He required Transfusion PRBC for Hgb of 5.9. He was able to come off bipap and onto supplemental O2. He is still on IV zosyn. Feeling much better. PMR consulted for rehab recommendations. Patient is currently doing well. He is independent with walking in the room. He feels below baseline function d/t his breathing, but his strength is there. Objective Past Medical History Past Medical History: Cancer, Hypertension Additional Past Medical History / Comment(s): MULTIPLE MYELOMA, NEUROPATHY FEET, HANDS AND LEGS History of Any Multi-Drug Resistant Organisms: None Reported Past Surgical History: Adenoidectomy, Orthopedic Surgery, Tonsillectomy Additional Past Surgical History / Comment(s): RIGHT HIP REPLACEMENT, LEFT EYE SURGERY FOR SCLERAL BUCKLE, TOOTH IMPLANT Past Psychological History: No Psychological Hx Reported Smoking Status: Never smoker Past Alcohol Use History: None Reported Past Drug Use History: None Reported - Past Family History Father Family Medical History: Cancer (gastric cancer) Mother Family Medical History: Cancer (glioblastoma) Sister(s) Family Medical History: Cancer (melanoma) Medications and Allergies Home Medications Medication Instructions Recorded Confirmed Type Terazosin [Hytrin] 5 mg PO BID 11/15/18 01/28/24 History amLODIPine [Norvasc] 5 mg PO QAM 11/15/18 01/28/24 History Aspirin EC [Ecotrin Low Dose] 81 mg PO DAILY 01/28/24 01/28/24 History Colestipol HCl [Colestid] 2 gm PO BID 01/28/24 01/28/24 History Allergies Allergy/AdvReac Type Severity Reaction Status Date / Time No Known Allergies Allergy Verified 01/28/24 07:03 Physical Exam Vitals: Vital Signs Temp Pulse Pulse Resp BP BP Pulse Ox 02/01/24 11:19 110 H 02/01/24 11:11 112 H 02/01/24 08:59 22 02/01/24 08:08 108 H 02/01/24 08:03 110 H 92 L 02/01/24 07:14 97.4 F L 110 H 22 124/68 90 L 02/01/24 05:48 86 19 127/70 96 02/01/24 02:00 98.1 F 120 H 20 137/66 94 L 01/31/24 21:24 91 01/31/24 21:16 88 01/31/24 20:00 98.2 F 93 94 33 H 131/83 125/77 97 01/31/24 19:00 31 H 01/31/24 18:00 116 H 01/31/24 17:00 108 H 01/31/24 16:16 98.8 F 93 18 131/83 95 01/31/24 16:00 104 H 01/31/24 15:46 92 18 01/31/24 15:36 94 18 01/31/24 15:00 106 H 01/31/24 14:34 98.2 F 99 23 126/73 95 Intake and Output 01/31/24 02/01/24 02/01/24 22:59 06:59 14:59 Intake Total 250 Output Total 525 375 Balance -275 -375 Intake: IV 10 Invasive Line 1 10 Oral 240 Output: Urine 525 375 Other: Voiding Method Indwelling Catheter # Voids 1 # Bowel Movements 1 General: No acute distress, lying in bed HEENT: Normocephalic, atraumatic Respiratory; on nasal cannula, conversationally dyspneic Abdomen: Nondistended, nontender Neuro: No facial droop, no slurred speech Musculoskeletal: Upper extremity strength is 5 out of 5 bilaterally in lower EXTR strength is 5 out of 5 bilaterally. Cardiovascular: No lower extremity edema, dorsalis pedis pulses intact psych: Normal affect and mood Results CBC & Chem 7: 02/01/24 13:23 02/01/24 13:23 Labs: Abnormal Lab Results - Last 24 Hours (Table) 01/31/24 02/01/24 02/01/24 Range/Units 07:39 13:23 13:23 WBC 2.6 L (3.8-10.6) k/uL RBC 2.60 L (4.30-5.90) m/uL Hgb 7.9 L (13.0-17.5) gm/dL Hct 24.7 L (39.0-53.0) % RDW 15.6 H (11.5-15.5) % Plt Count 138 L (150-450) k/uL Lymphocytes # 0.4 L (1.0-4.8) k/uL Sodium 136 L (137-145) mmol/L Chloride 108 H (98-107) mmol/L Creatinine 0.63 L (0.66-1.25) mg/dL Glucose 150 H (74-99) mg/dL Calcium 7.6 L (8.4-10.2) mg/dL Total Bilirubin 2.5 H (0.2-1.3) mg/dL Alkaline Phosphatase 149 H (38-126) U/L Total Protein 5.0 L (6.3-8.2) g/dL Albumin 2.1 L (3.5-5.0) g/dL Crossmatch See Detail Microbiology - Last 24 Hours (Table) 01/28/24 06:35 Blood Culture - Preliminary Blood 01/28/24 06:20 Blood Culture - Preliminary Blood 01/28/24 18:35 Gram Stain - Final Sputum Sputum Culture - Final Assessment and Plan Assessment: Debility secondary to acute hypoxic respiratory failure from viral illness -Continue with acute care PT and OT however patient is ambulating independently in the room. Acute bronchitis with possible pneumonia -completed Abx -On nasal cannula, wean as tolerated Multiple myeloma -required transfusion 1 u prbc, f/u with heme Pancytopenia Dispo: home with Home health care . Patient is ambulating independently and transferring independently. He does not have a significant stair burden at home and will be okay managing 2 steps to get into the home. He does not need any DME upon discharge.
--- NOTE | 2024-02-01 21:43 | P.PN ---
Subjective Progress Note Date: 02/01/24 Principal diagnosis: Reason for follow-up is sepsis and pneumonia Patient is a 78-year-old male with a past medical history significant for multiple myeloma previously has been on chemotherapy and hypertension presenting to the hospital with increasing shortness of breath patient did have a fever elevated procalcitonin CT of the chest with pneumonitis/pneumonia. On today's evaluation that is 02/01/2024, the patient continues to be afebrile, the patient is on 2 L nasal cannula oxygen and breathing comfortably, the Pt denies having any chest pain and cough has decreased in intensity, the patient denies having any abdominal pain no vomiting or any diarrhea has been reported by the nursing staff. Patient white count is 2.6, creatinine 0.63 blood and sputum culture have been negative Objective - Vital Signs Vital signs: Vital Signs Temp 98.4 F 02/01/24 19:10 Pulse 97 02/01/24 19:41 Resp 19 02/01/24 19:10 BP 120/70 02/01/24 19:10 Pulse Ox 92 L 02/01/24 19:10 FiO2 50 01/31/24 09:50 Intake & Output 02/01/24 02/01/24 02/02/24 06:59 18:59 06:59 Intake Total 250 Output Total 525 150 Balance -275 -150 Intake: IV 10 Invasive Line 1 10 Oral 240 Output: Urine 525 150 Other: Voiding Method Indwelling Catheter # Voids 1 # Bowel Movements 1 - Exam GENERAL DESCRIPTION: An elderly male up in the chair in no distress RESPIRATORY SYSTEM: Unlabored breathing , coarse breath sounds bilaterally HEART: S1 S2 regular rate and rhythm , ABDOMEN: Soft , no tenderness EXTREMITIES: No edema feet - Labs CBC & Chem 7: 02/01/24 13:23 02/01/24 13:23 Labs: Abnormal Lab Results - Last 24 Hours (Table) 02/01/24 02/01/24 Range/Units 13:23 13:23 WBC 2.6 L (3.8-10.6) k/uL RBC 2.60 L (4.30-5.90) m/uL Hgb 7.9 L (13.0-17.5) gm/dL Hct 24.7 L (39.0-53.0) % RDW 15.6 H (11.5-15.5) % Plt Count 138 L (150-450) k/uL Lymphocytes # 0.4 L (1.0-4.8) k/uL Sodium 136 L (137-145) mmol/L Chloride 108 H (98-107) mmol/L Creatinine 0.63 L (0.66-1.25) mg/dL Glucose 150 H (74-99) mg/dL Calcium 7.6 L (8.4-10.2) mg/dL Total Bilirubin 2.5 H (0.2-1.3) mg/dL Alkaline Phosphatase 149 H (38-126) U/L Total Protein 5.0 L (6.3-8.2) g/dL Albumin 2.1 L (3.5-5.0) g/dL Assessment and Plan (1) Pneumonitis Current Visit: Yes Status: Acute Code(s): J98.4 - OTHER DISORDERS OF LUNG SNOMED Code(s): 716196870 Plan: 1patient presented to hospital with sepsis in this patient who did have a low- grade fever tachycardia leukopenia source is likely pneumonia in this patient who did have a history of multiple myeloma and did have a significantly low white count will need to cover for resistant gram-negative to be the likely pathogen less likely MRSA 2-blood and sputum culture have been obtained and results are currently pending 3-patient slowly clinically improving to continue Zosyn transition to oral antibiotic on discharge Dictation was produced using [employer] dictation software. please excuse any grammatical, word or spelling errors. Time with Patient: Less than 30
[2024-02-02 09:26] LABS: ALT 57 U/L (10-49); AST 24 U/L (14-35); Albumin 2.6 g/dL (3.8-4.9); Albumin/Globulin Ratio 1.18 Ratio (1.60-3.17); Alkaline Phosphatase 130 U/L (41-126); BUN/Creat Ratio 15.88 Ratio (12.00-20.00); Blood Urea Nitrogen 12.7 mg/dL (9.0-27.0); Calcium 7.6 mg/dL (8.7-10.3); Carbon Dioxide 27.4 mmol/L (21.6-31.8); Chloride 107 mmol/L (96-109); Globulin 2.2 g/dL (1.6-3.3); Glucose 115 mg/dL (70-110); Potassium 3.9 mmol/L (3.5-5.5); Sodium 141 mmol/L (135-145); Total Bilirubin 1.7 mg/dL (0.3-1.2); Total Protein 4.8 g/dL (6.2-8.2)
--- NOTE | 2024-02-02 12:58 | P.PN ---
Subjective Progress Note Date: 02/02/24 Christopher Fonseca, is a 78-year-old male who presented to [facility] emergency room with a chief complaint of worsening shortness of breath. patient has a known history of multiple myeloma, followed by oncology. He was evaluated in the emergency room vital examination on presentation reveale d a temperature of 97.8 pulse 137 respiration 22 blood pressure 128/58 pulse ox 86% on 4 L nasal cannula Laboratory data reveals a white blood count of 1.7 hemoglobin 5.9 platelet count 125 d-dimer 1.3 ABG revealed a pH of 7.41 pCO2 37 by mouth to 154 BUN 37 creatinine 1.03 Testing in the emergency room revealed CT angiogram of the chest revealed no evidence of pulmonary embolism chest x-ray was suggestive of acute bronchitis with pneumonitis, EKG revealed evidence of atrial fibrillation with rapid ventricular response Patient was admitted to intensive care unit, he was started on IV antibiotics, pulmonary cardiology and oncology consultation were requested. on 01/29/2024 patient's alert and oriented resting comfortably in bed. Patient remains in the intensive care unit patient is having increased coughing. Concerns per nursing staff about possible aspiration on water. Speech services will be consulted.patient remains on IV Cardizem. Patient also on IV antibiotics vancomycin and Zosyncurrent vital signs temp 98.1, heart rate 85, Respiratory rate 29, blood pressure 109/63 with a pulse ox 96% on 6 L On 01/30/2024 patient's alert and oriented resting comfortably in bed. Patient remains in the intensive care unit. Patient was evaluated by speech services dietary recommendations in chart. Infectious disease services are following.Patient remains on IV antibiotics Zosyn. White blood cell improving to 1.9. Cardiology, pulmonary, oncology and infectious disease service is following On 01/31/2024 patient was seen and examined on the medical floor, he is alert and oriented 3 in no apparent distress, he is resting comfortably in bed, he is complaining of cough and shortness of breath, otherwise he denies any complaints, he is still maintained on oxygen 4 L via nasal cannula, there is no fever or chills no headache or dizziness no chest pain no nausea or vomiting no abdominal pain no diarrhea, no urinary symptoms Canseco catheter is in, patient remains on IV antibiotic Zosyn, hemoglobin today is down to 6.5, 1 unit of red blood cell transfusion was ordered On 02/01/2024 patient's alert and oriented 3. Patient reports improvement.Current vital signs temp 97.4, heart rate 110, respiratory rate 18, blood pressure 124/68 with a pulse ox 92% on 5 L. Repeat blood work has been ordered. Patient denies chest pain or shortness of breath. Patient denies nausea vomiting or diarrhea. Patient denies any urinary burning or frequency. on 02/02/2024 patient was seen and examined on the medical floor, he is alert and oriented 3 in no distress, he denies any complaints at this time but is no fever or chills no headache or dizziness no chest pain no shortness of breath at rest he has occasional cough no nausea or vomiting no abdominal pain no diarrhea and no urinary symptoms, patient remains on oxygen via nasal cannula, his vital exam reveals temperature of 97.4 pulse 93 respiration 19 and blood pressure 139/73 and pulse ox 97% on 4 L nasal cannula, white blood count is 2.6 hemoglobin 7.9 platelet count 138 BUN 12.7 creatinine 0.8. For DVT prophylaxis patient is on SCD stockings, he is followed by cardiology pulmonary, infectious disease, and oncology, patient is improving gradually, he remains on IV Zosyn, he received 1 unit of red blood cell transfusion during this admission. Objective - Vital Signs Vital signs: Vital Signs Temp 97.8 F 02/02/24 07:37 Pulse 96 02/02/24 07:51 Resp 17 02/02/24 07:37 BP 128/70 02/02/24 07:37 Pulse Ox 97 02/02/24 07:37 FiO2 50 01/31/24 09:50 Intake & Output 02/01/24 02/02/24 02/02/24 18:59 06:59 18:59 Intake Total 480 Output Total 150 Balance -150 480 Intake: Oral 480 Output: Urine 150 Other: Voiding Method Toilet Urinal # Voids 1 2 # Bowel Movements 1 - Exam Head normocephalic Neck supple Lungs expiratorywheezing Heart regular rate and rhythm S1-S2, no rub or gallop Abdomen is soft nontender nondistended positive bowel sounds no hepatosplenomegaly Extremities no edema Neuro alert and orientated to 3 - Labs CBC & Chem 7: 02/01/24 13:23 02/02/24 03:44 Labs: Abnormal Lab Results - Last 24 Hours (Table) 02/01/24 02/01/24 02/02/24 Range/Units 13:23 13:23 03:44 WBC 2.6 L (3.8-10.6) k/uL RBC 2.60 L (4.30-5.90) m/uL Hgb 7.9 L (13.0-17.5) gm/dL Hct 24.7 L (39.0-53.0) % RDW 15.6 H (11.5-15.5) % Plt Count 138 L (150-450) k/uL Lymphocytes # 0.4 L (1.0-4.8) k/uL Sodium 136 L (137-145) mmol/L Chloride 108 H (98-107) mmol/L Creatinine 0.63 L (0.66-1.25) mg/dL Glucose 150 H 115 H (74-99) mg/dL Calcium 7.6 L 7.6 L (8.4-10.2) mg/dL Total Bilirubin 2.5 H 1.7 H (0.2-1.3) mg/dL ALT 57 H (10-49) U/L Alkaline Phosphatase 149 H 130 H (38-126) U/L Total Protein 5.0 L 4.8 L (6.3-8.2) g/dL Albumin 2.1 L 2.6 L (3.5-5.0) g/dL Albumin/Globulin Ratio 1.18 L (1.60-3.17) Ratio Assessment and Plan Plan: Acute hypoxic respiratory failure New onset atrial fibrillation with RVR.per cardiology sinus tachycardia no evidence of atrial fibrillation acute purulent bronchitis with possible pneumonia acute metabolic acidosis History of multiple myeloma. Anemia, S/P packed red blood cell transfusion. Pancytopenia, secondary to chemotherapeutic agent. underlying history of hypertension. Patient has been transferred out of the intensive care unit He was started on BiPAP patient was started on IV antibiotics Home medications reviewed and reordered Pulmonary and cardiology consultation requested Also oncology consultation requested in regard to multiple myeloma Will follow closely
[2024-02-02 13:43] LABS: Basophils # (A) 0.01 X 10*3/uL (0.00-0.10); Basophils % (A) 0.5 %; Eosinophils # (A) 0.03 X 10*3/uL (0.04-0.35); Eosinophils % (A) 1.4 %; HCT 22.3 % (39.6-50.0); HGB 7.3 g/dL (13.0-17.0); Lymphocytes # (A) 0.52 X 10*3/uL (0.90-5.00); Lymphocytes % (A) 23.9 %; MCH 30.4 pg (27.0-32.0); MCHC 32.7 g/dL (32.0-37.0); MCV 92.9 FL (80.0-97.0); Mean Platelet Volume 12.3 FL (9.5-12.2); Monocytes # (A) 0.12 X 10*3/uL (0.20-1.00); Monocytes % (A) 5.5 %; NRBC Per 100 WBC 0 X 10*3/uL (0.00-0.01); Neutrophils # (A) 1.49 X 10*3/uL (1.80-7.70); Neutrophils % (A) 68.2 %; Platelet Count 147 X 10*3/uL (140-440); RDW 16.1 % (11.5-14.5); WBC 2.18 X 10*3/uL (4.50-10.00)
--- NOTE | 2024-02-02 15:23 | P.PN ---
Subjective Progress Note Date: 02/02/24 78-year-old male who was seen in the emergency department, beginning on January 27, at 4:30 in the morning. The patient has a history of multiple myeloma, and hypertension. Over the last few days or so, the patient and his , have both been sick with an upper respiratory tract infection. It caused him to have significant shortness of breath, and weakness, over the last week or so. Because the shortness of breath was worsening, the patient decided to be evaluated in the emergency department. The patient was seen in the emergency department, by the ER physician, and was also briefly seen by my nurse practitioner. The patient is being admitted with the possibility of infection in the lung, and, anemia, as well as atrial fibrillation with RVR. Currently, the patient is on BiPAP, with settings of 14/6 and 50%. The patient is getting saline at 75 cc an hour. The patient's hemoglobin was 5.9. 1 unit of blood was ordered. The patient was placed on a Cardizem drip, at 5 mg an hour. He was also given vancomycin and Zosyn for possible pneumonia. Laboratory data includes a white count 1.7, hemoglobin 5.9, hematocrit 17.7, and a platelet count of 125,000. D-dimer was 1.32. Venous blood gases showed a pH of 7.38 and a pCO2 of 37. Sodium 138, potassium 4.1, chlorides 107, CO2 18, anion gap 13, BUN 37, and creatinine 1.03. Glucose was 235. Repeat was 148. Lactic acid was 7.6, calcium 7.9, albumin 2.6. N-terminal proBNP was 1230. Troponin was 0.027. Urine appears relatively benign. He tested negative for influenza A, B, RSV, and coronavirus. Chest x-ray shows some patchy pneumonitis. CT angiogram was negative for pulmonary embolism, but did show some changes of pneumonitis, particularly in the lower lobes the right middle lobe. Infectious, or inflammatory etiology was proposed. Progress note dated January 29, 2024. 78-year-old male seen yesterday in consultation. The patient has a history of multiple myeloma and hypertension, and came into the hospital with an acute respiratory infection, possibly pneumonia. The patient was on BiPAP yesterday, and is currently on 5 L nasal cannula. He did use BiPAP last night for about 4 hours, with settings of 16/8, and 50%. The patient is on Cardizem at 5 mg an hour for his atrial fibrillation, normal saline at 20 cc an hour, and the patient continues on vancomycin and Zosyn. Clinically, he feels a lot better, and looks a lot better. White count is 1.4, hemoglobin 7.1, hematocrit 23.1, and platelet count 98,000. Sodium 141, potassium 4.4, chlorides 114, CO2 21, BUN 29, creatinine 0.79. Glucose 127. Calcium 7.2, total bilirubin 2.5. Albumin is 2.1. Procalcitonin level is 2.12. Urine is essentially negative. Chest x-ray shows minimal infiltrates bilaterally. Progress note dated January 30, 2024. 78-year-old male admitted with a diagnosis of possible pneumonia and respiratory failure. Currently he is seen in the intensive care unit, room 256. He is currently on nasal cannula at 5 L. He did use the BiPAP device last night, for a couple of hours, with settings of 16/8 and 50%. The patient continues on Zosyn. The patient could be transferred out to the general medical floor with telemetry. Will add some Tessalon Perles, for his cough. White count 1.9, hemoglobin 7.1, hematocrit 21.8, and platelet count was 95,000. Sodium 140, potassium 4, chlorides 113, CO2 23, BUN 21, creatinine 0.73. Calcium 7.4. Total bilirubin 2.6. Albumin is 2.1. Microbiologic studies are negative or pending. Chest x-ray shows some chronic changes, without an acute disease process. Progress note dated January 31, 2024. 78-year-old admitted with a diagnosis of pneumonia and respiratory failure. He is seen today in room 256. He is currently on 5 L nasal cannula. He is getting saline at KVO. He continues on Zosyn. He will receive another unit of blood. He has received a total of 2 units of PRBCs. Today's hemoglobin was 6.5. Today's labs include a white count 1.9, hemoglobin 6.5, hematocrit 20.6, and a platelet count of 113,000. Sodium 140, potassium 4.2, chloride 111, CO2 25, BUN 19, and creatinine 0.7. Glucose is 111. Calcium is 7.4, bilirubin 2.2. Albumin 2.1. Blood cultures and sputum sampling is negative thus far. No chest x-ray today. Progress note dated February 01, 2024. The patient is seen today in room 453. He is feeling much better. He is on 5 L of oxygen by nasal cannula. He continues on Zosyn. He has no specific complaints today. His breathing is much improved. He talks about getting out of the hospital, and playing golf. Current labs include a white count 1.9, hemoglobin 6.5, hematocrit 20.6, platelet count 113,000. Sodium 140, potassium 4.2, chloride 111, CO2 25, BUN 19, creatinine 0.7. Calcium is 7.4. Albumin is 2.1. Microbiologic studies are thus far negative. No chest x-ray today. The patient is seen today February 02, 2024 in follow-up on the regular medical floor. He is currently resting comfortably in bed. Awake and alert in no acute distress. Maintaining O2 saturations in the 90s on 3 L/min per nasal cannula. He is feeling better today compared to yesterday. He is status post 2 units of packed red blood cells this admission. Current hemoglobin 7.3. White count 2.1. Platelets 147. Sodium 141. Potassium 3.9. Bicarb 27. BUN 13. Creatinine 0.8. Glucose 115. Procalcitonin was 2.12. He remains on Zosyn. Continued on bronchodilators, Tessalon Perles. Objective - Vital Signs Vital signs: Vital Signs Temp 97.5 F L 02/02/24 14:00 Pulse 95 02/02/24 15:17 Resp 17 02/02/24 14:00 BP 108/63 02/02/24 14:00 Pulse Ox 95 02/02/24 14:00 FiO2 50 01/31/24 09:50 Intake & Output 02/01/24 02/02/24 02/02/24 18:59 06:59 18:59 Intake Total 480 Output Total 150 Balance -150 480 Intake: Oral 480 Output: Urine 150 Other: Voiding Method Toilet Urinal # Voids 1 2 # Bowel Movements 1 - Exam GENERAL EXAM: Alert, pleasant 78-year-old male, on 3 L nasal cannula, comfortable in no apparent distress. HEAD: Normocephalic. EYES: Normal reaction of pupils, equal size. NOSE: Clear with pink turbinates. THROAT: No erythema or exudates. NECK: No masses, no JVD. CHEST: No chest wall deformity. LUNGS: Equal air entry with no crackles, wheeze, rhonchi or dullness. CVS: S1 and S2 normal with no audible murmur, regular rhythm. ABDOMEN: No hepatosplenomegaly, normal bowel sounds, no guarding or rigidity. SPINE: No scoliosis or deformity SKIN: No rashes CENTRAL NERVOUS SYSTEM: No focal deficits, tone is normal in all 4 extremities. EXTREMITIES: There is no peripheral edema. No clubbing, no cyanosis. Peripheral pulses are intact. - Labs CBC & Chem 7: 02/02/24 03:44 02/02/24 03:44 Labs: Abnormal Lab Results - Last 24 Hours (Table) 02/02/24 02/02/24 Range/Units 03:44 03:44 WBC 2.18 L (4.50-10.00) X 10*3/uL RBC 2.40 L (4.40-5.60) X 10*6/uL Hgb 7.3 L (13.0-17.0) g/dL Hct 22.3 L (39.6-50.0) % RDW 16.1 H (11.5-14.5) % MPV 12.3 H (9.5-12.2) FL Neutrophils # 1.49 L (1.80-7.70) X 10*3/uL Lymphocytes # 0.52 L (0.90-5.00) X 10*3/uL Monocytes # 0.12 L (0.20-1.00) X 10*3/uL Eosinophils # 0.03 L (0.04-0.35) X 10*3/uL Glucose 115 H (70-110) mg/dL Calcium 7.6 L (8.7-10.3) mg/dL Total Bilirubin 1.7 H (0.3-1.2) mg/dL ALT 57 H (10-49) U/L Alkaline Phosphatase 130 H (41-126) U/L Total Protein 4.8 L (6.2-8.2) g/dL Albumin 2.6 L (3.8-4.9) g/dL Albumin/Globulin Ratio 1.18 L (1.60-3.17) Ratio Microbiology - Last 24 Hours (Table) 01/28/24 06:35 Blood Culture - Final Blood 01/28/24 06:20 Blood Culture - Final Blood Assessment and Plan Assessment: Acute hypoxemic respiratory failure, likely multifactorial, in part related to possible pneumonia, and exacerbated by new onset atrial fibrillation/RVR. History of multiple myeloma. Anemia, S/P packed red blood cell transfusion. Pancytopenia, secondary to chemotherapeutic agent. Anion gap metabolic acidosis. Lactic acidemia. History of hypertension. Plan: The patient was seen and evaluated Labs and medications reviewed Stable and on 3 L nasal cannula Titrate down the FiO2 as tolerated Increase his activity as tolerated Remains on Zosyn Hemoglobin stable Will continue to follow I have personally seen and examined the patient, performed the documentation and the assessment and plan as written. Number of minutes spent on the visit: 10.
[2024-02-03 09:51] LABS: Basophils # (A) 0.01 X 10*3/uL (0.00-0.10); Basophils % (A) 0.5 %; Eosinophils # (A) 0.02 X 10*3/uL (0.04-0.35); HCT 21.8 % (39.6-50.0); HGB 7.1 g/dL (13.0-17.0); Lymphocytes # (A) 0.47 X 10*3/uL (0.90-5.00); Lymphocytes % (A) 24.2 %; MCHC 32.6 g/dL (32.0-37.0); MCV 95.2 FL (80.0-97.0); Mean Platelet Volume 12.4 FL (9.5-12.2); Monocytes # (A) 0.13 X 10*3/uL (0.20-1.00); Monocytes % (A) 6.7 %; NRBC Per 100 WBC 0 X 10*3/uL (0.00-0.01); Neutrophils % (A) 67.1 %; Platelet Count 175 X 10*3/uL (140-440); RBC 2.29 X 10*6/uL (4.40-5.60); RDW 16.1 % (11.5-14.5); WBC 1.94 X 10*3/uL (4.50-10.00)
[2024-02-03 10:08] LABS: ALT 61 U/L (10-49); AST 25 U/L (14-35); Albumin 2.7 g/dL (3.8-4.9); Albumin/Globulin Ratio 1.29 Ratio (1.60-3.17); Alkaline Phosphatase 116 U/L (41-126); BUN/Creat Ratio 13.62 Ratio (12.00-20.00); Blood Urea Nitrogen 10.9 mg/dL (9.0-27.0); Calcium 7.5 mg/dL (8.7-10.3); Carbon Dioxide 25.8 mmol/L (21.6-31.8); Chloride 107 mmol/L (96-109); Globulin 2.1 g/dL (1.6-3.3); Glucose 106 mg/dL (70-110); Potassium 3.6 mmol/L (3.5-5.5); Sodium 141 mmol/L (135-145); Total Bilirubin 1.6 mg/dL (0.3-1.2); Total Protein 4.8 g/dL (6.2-8.2)
--- NOTE | 2024-02-03 10:17 | P.PN ---
Subjective Progress Note Date: 02/03/24 Christopher Fonseca, is a 78-year-old male who presented to [facility] emergency room with a chief complaint of worsening shortness of breath. patient has a known history of multiple myeloma, followed by oncology. He was evaluated in the emergency room vital examination on presentation reveal ed a temperature of 97.8 pulse 137 respiration 22 blood pressure 128/58 pulse ox 86% on 4 L nasal cannula Laboratory data reveals a white blood count of 1.7 hemoglobin 5.9 platelet count 125 d-dimer 1.3 ABG revealed a pH of 7.41 pCO2 37 by mouth to 154 BUN 37 creatinine 1.03 Testing in the emergency room revealed CT angiogram of the chest revealed no evidence of pulmonary embolism chest x-ray was suggestive of acute bronchitis with pneumonitis, EKG revealed evidence of atrial fibrillation with rapid ventricular response Patient was admitted to intensive care unit, he was started on IV antibiotics, pulmonary cardiology and oncology consultation were requested. on 01/29/2024 patient's alert and oriented resting comfortably in bed. Patient remains in the intensive care unit patient is having increased coughing. Concerns per nursing staff about possible aspiration on water. Speech services will be consulted.patient remains on IV Cardizem. Patient also on IV antibiotics vancomycin and Zosyncurrent vital signs temp 98.1, heart rate 85, Respiratory rate 29, blood pressure 109/63 with a pulse ox 96% on 6 L On 01/30/2024 patient's alert and oriented resting comfortably in bed. Patient remains in the intensive care unit. Patient was evaluated by speech services dietary recommendations in chart. Infectious disease services are following.Patient remains on IV antibiotics Zosyn. White blood cell improving to 1.9. Cardiology, pulmonary, oncology and infectious disease service is following On 01/31/2024 patient was seen and examined on the medical floor, he is alert and oriented 3 in no apparent distress, he is resting comfortably in bed, he is complaining of cough and shortness of breath, otherwise he denies any complaints, he is still maintained on oxygen 4 L via nasal cannula, there is no fever or chills no headache or dizziness no chest pain no nausea or vomiting no abdominal pain no diarrhea, no urinary symptoms Canseco catheter is in, patient remains on IV antibiotic Zosyn, hemoglobin today is down to 6.5, 1 unit of red blood cell transfusion was ordered On 02/01/2024 patient's alert and oriented 3. Patient reports improvement.Current vital signs temp 97.4, heart rate 110, respiratory rate 18, blood pressure 124/68 with a pulse ox 92% on 5 L. Repeat blood work has been ordered. Patient denies chest pain or shortness of breath. Patient denies nausea vomiting or diarrhea. Patient denies any urinary burning or frequency. on 02/02/2024 patient was seen and examined on the medical floor, he is alert and oriented 3 in no distress, he denies any complaints at this time but is no fever or chills no headache or dizziness no chest pain no shortness of breath at rest he has occasional cough no nausea or vomiting no abdominal pain no diarrhea and no urinary symptoms, patient remains on oxygen via nasal cannula, his vital exam reveals temperature of 97.4 pulse 93 respiration 19 and blood pressure 139/73 and pulse ox 97% on 4 L nasal cannula, white blood count is 2.6 hemoglobin 7.9 platelet count 138 BUN 12.7 creatinine 0.8. For DVT prophylaxis patient is on SCD stockings, he is followed by cardiology pulmonary, infectious disease, and oncology, patient is improving gradually, he remains on IV Zosyn, he received 1 unit of red blood cell transfusion during this admission. On 02/03/2024 patient's alert and oriented 3 patient remains on 3 L nasal cannula. Patient reports productive cough. Patient denies chest pain. Patient denies nausea vomiting or diarrhea. Patient denies any urinary burning or frequency. White blood cell 1.94 hemoglobin 7.1. Vital signs temp 98.0, heart rate 82, respiratory rate 18, blood pressure 132/72 and a pulse ox of 92%on 3 L Objective - Vital Signs Vital signs: Vital Signs Temp 98.0 F 02/03/24 07:11 Pulse 92 02/03/24 07:11 Resp 18 02/03/24 07:11 BP 132/72 02/03/24 07:11 Pulse Ox 92 L 02/03/24 07:11 FiO2 50 01/31/24 09:50 Intake & Output 02/02/24 02/03/24 02/03/24 18:59 06:59 18:59 Intake Total 950 240 Balance 950 240 Intake: Oral 950 240 Other: Voiding Method Toilet Urinal # Voids 3 3 - Exam Head normocephalic Neck supple Lungs expiratorywheezing Heart regular rate and rhythm S1-S2, no rub or gallop Abdomen is soft nontender nondistended positive bowel sounds no hepatosplenomegaly Extremities no edema Neuro alert and orientated to 3 - Labs CBC & Chem 7: 02/03/24 05:22 02/03/24 05:22 Labs: Abnormal Lab Results - Last 24 Hours (Table) 02/02/24 02/03/24 02/03/24 Range/Units 03:44 05:22 05:22 WBC 2.18 L 1.94 L (4.50-10.00) X 10*3/uL RBC 2.40 L 2.29 L (4.40-5.60) X 10*6/uL Hgb 7.3 L 7.1 L (13.0-17.0) g/dL Hct 22.3 L 21.8 L (39.6-50.0) % RDW 16.1 H 16.1 H (11.5-14.5) % MPV 12.3 H 12.4 H (9.5-12.2) FL Neutrophils # 1.49 L 1.30 L (1.80-7.70) X 10*3/uL Lymphocytes # 0.52 L 0.47 L (0.90-5.00) X 10*3/uL Monocytes # 0.12 L 0.13 L (0.20-1.00) X 10*3/uL Eosinophils # 0.03 L 0.02 L (0.04-0.35) X 10*3/uL Calcium 7.5 L (8.7-10.3) mg/dL Total Bilirubin 1.6 H (0.3-1.2) mg/dL ALT 61 H (10-49) U/L Total Protein 4.8 L (6.2-8.2) g/dL Albumin 2.7 L (3.8-4.9) g/dL Albumin/Globulin Ratio 1.29 L (1.60-3.17) Ratio Microbiology - Last 24 Hours (Table) 01/28/24 06:35 Blood Culture - Final Blood 01/28/24 06:20 Blood Culture - Final Blood Assessment and Plan Assessment: Acute hypoxic respiratory failure New onset atrial fibrillation with RVR.per cardiology sinus tachycardia no evidence of atrial fibrillation acute purulent bronchitis with possible pneumonia acute metabolic acidosis History of multiple myeloma. Anemia, S/P packed red blood cell transfusion. Pancytopenia, secondary to chemotherapeutic agent. underlying history of hypertension. Patient has been transferred out of the intensive care unit He was started on BiPAP patient was started on IV antibiotics Home medications reviewed and reordered Pulmonary and cardiology consultation requested Also oncology consultation requested in regard to multiple myeloma Will follow closely
--- NOTE | 2024-02-03 13:52 | P.PN ---
Subjective Progress Note Date: 02/03/24 78-year-old male who was seen in the emergency department, beginning on January 27, at 4:30 in the morning. The patient has a history of multiple myeloma, and hypertension. Over the last few days or so, the patient and his , have both been sick with an upper respiratory tract infection. It caused him to have significant shortness of breath, and weakness, over the last week or so. Because the shortness of breath was worsening, the patient decided to be evaluated in the emergency department. The patient was seen in the emergency department, by the ER physician, and was also briefly seen by my nurse practitioner. The patient is being admitted with the possibility of infection in the lung, and, anemia, as well as atrial fibrillation with RVR. Currently, the patient is on BiPAP, with settings of 14/6 and 50%. The patient is getting saline at 75 cc an hour. The patient's hemoglobin was 5.9. 1 unit of blood was ordered. The patient was placed on a Cardizem drip, at 5 mg an hour. He was also given vancomycin and Zosyn for possible pneumonia. Laboratory data includes a white count 1.7, hemoglobin 5.9, hematocrit 17.7, and a platelet count of 125,000. D-dimer was 1.32. Venous blood gases showed a pH of 7.38 and a pCO2 of 37. Sodium 138, potassium 4.1, chlorides 107, CO2 18, anion gap 13, BUN 37, and creatinine 1.03. Glucose was 235. Repeat was 148. Lactic acid was 7.6, calcium 7.9, albumin 2.6. N-terminal proBNP was 1230. Troponin was 0.027. Urine appears relatively benign. He tested negative for influenza A, B, RSV, and coronavirus. Chest x-ray shows some patchy pneumonitis. CT angiogram was negative for pulmonary embolism, but did show some changes of pneumonitis, particularly in the lower lobes the right middle lobe. Infectious, or inflammatory etiology was proposed. Progress note dated January 29, 2024. 78-year-old male seen yesterday in consultation. The patient has a history of multiple myeloma and hypertension, and came into the hospital with an acute respiratory infection, possibly pneumonia. The patient was on BiPAP yesterday, and is currently on 5 L nasal cannula. He did use BiPAP last night for about 4 hours, with settings of 16/8, and 50%. The patient is on Cardizem at 5 mg an hour for his atrial fibrillation, normal saline at 20 cc an hour, and the patient continues on vancomycin and Zosyn. Clinically, he feels a lot better, and looks a lot better. White count is 1.4, hemoglobin 7.1, hematocrit 23.1, and platelet count 98,000. Sodium 141, potassium 4.4, chlorides 114, CO2 21, BUN 29, creatinine 0.79. Glucose 127. Calcium 7.2, total bilirubin 2.5. Albumin is 2.1. Procalcitonin level is 2.12. Urine is essentially negative. Chest x-ray shows minimal infiltrates bilaterally. Progress note dated January 30, 2024. 78-year-old male admitted with a diagnosis of possible pneumonia and respiratory failure. Currently he is seen in the intensive care unit, room 256. He is currently on nasal cannula at 5 L. He did use the BiPAP device last night, for a couple of hours, with settings of 16/8 and 50%. The patient continues on Zosyn. The patient could be transferred out to the general medical floor with telemetry. Will add some Tessalon Perles, for his cough. White count 1.9, hemoglobin 7.1, hematocrit 21.8, and platelet count was 95,000. Sodium 140, potassium 4, chlorides 113, CO2 23, BUN 21, creatinine 0.73. Calcium 7.4. Total bilirubin 2.6. Albumin is 2.1. Microbiologic studies are negative or pending. Chest x-ray shows some chronic changes, without an acute disease process. Progress note dated January 31, 2024. 78-year-old admitted with a diagnosis of pneumonia and respiratory failure. He is seen today in room 256. He is currently on 5 L nasal cannula. He is getting saline at KVO. He continues on Zosyn. He will receive another unit of blood. He has received a total of 2 units of PRBCs. Today's hemoglobin was 6.5. Today's labs include a white count 1.9, hemoglobin 6.5, hematocrit 20.6, and a platelet count of 113,000. Sodium 140, potassium 4.2, chloride 111, CO2 25, BUN 19, and creatinine 0.7. Glucose is 111. Calcium is 7.4, bilirubin 2.2. Albumin 2.1. Blood cultures and sputum sampling is negative thus far. No chest x-ray today. Progress note dated February 01, 2024. The patient is seen today in room 453. He is feeling much better. He is on 5 L of oxygen by nasal cannula. He continues on Zosyn. He has no specific complaints today. His breathing is much improved. He talks about getting out of the hospital, and playing golf. Current labs include a white count 1.9, hemoglobin 6.5, hematocrit 20.6, platelet count 113,000. Sodium 140, potassium 4.2, chloride 111, CO2 25, BUN 19, creatinine 0.7. Calcium is 7.4. Albumin is 2.1. Microbiologic studies are thus far negative. No chest x-ray today. The patient is seen today February 02, 2024 in follow-up on the regular medical floor. He is currently resting comfortably in bed. Awake and alert in no acute distress. Maintaining O2 saturations in the 90s on 3 L/min per nasal cannula. He is feeling better today compared to yesterday. He is status post 2 units of packed red blood cells this admission. Current hemoglobin 7.3. White count 2.1. Platelets 147. Sodium 141. Potassium 3.9. Bicarb 27. BUN 13. Creatinine 0.8. Glucose 115. Procalcitonin was 2.12. He remains on Zosyn. Continued on bronchodilators, Tessalon Perles. The patient is seen today February 03, 2024 in follow-up on the regular medical floor. He is sitting up at the bedside. Awake and alert in no acute distress. Maintaining O2 saturations in the 90s on 3 L/min per nasal cannula. No IV fluids. He is continued on Zosyn. Follow-up chest x-ray reveals similar findings of chronic changes but no acute pulmonary process. Blood cultures revealed no growth. Sputum culture revealed no growth. Count 1.9. Hemoglobin 7.1. Platelets 175. Sodium 141. Potassium 3.6. Bicarb 26. BUN 11. Creatinine 0.8. Glucose 106. Continued on bronchodilators and Tessalon Perles. Objective - Vital Signs Vital signs: Vital Signs Temp 98.0 F 02/03/24 07:11 Pulse 92 02/03/24 07:11 Resp 18 02/03/24 07:11 BP 132/72 02/03/24 07:11 Pulse Ox 92 L 02/03/24 07:11 FiO2 50 01/31/24 09:50 Intake & Output 02/02/24 02/03/24 02/03/24 18:59 06:59 18:59 Intake Total 950 240 Balance 950 240 Intake: Oral 950 240 Other: Voiding Method Toilet Urinal # Voids 3 3 - Exam GENERAL EXAM: Alert, pleasant 78-year-old male, sitting up at the bedside, on 3 L nasal cannula, in no apparent distress. HEAD: Normocephalic. EYES: Normal reaction of pupils, equal size. NOSE: Clear with pink turbinates. THROAT: No erythema or exudates. NECK: No masses, no JVD. CHEST: No chest wall deformity. LUNGS: Equal air entry with no crackles, wheeze, rhonchi or dullness. CVS: S1 and S2 normal with no audible murmur, regular rhythm. ABDOMEN: No hepatosplenomegaly, normal bowel sounds, no guarding or rigidity. SPINE: No scoliosis or deformity SKIN: No rashes CENTRAL NERVOUS SYSTEM: No focal deficits, tone is normal in all 4 extremities. EXTREMITIES: There is no peripheral edema. No clubbing, no cyanosis. Peripheral pulses are intact. - Labs CBC & Chem 7: 02/03/24 05:22 02/03/24 05:22 Labs: Abnormal Lab Results - Last 24 Hours (Table) 02/03/24 02/03/24 Range/Units 05:22 05:22 WBC 1.94 L (4.50-10.00) X 10*3/uL RBC 2.29 L (4.40-5.60) X 10*6/uL Hgb 7.1 L (13.0-17.0) g/dL Hct 21.8 L (39.6-50.0) % RDW 16.1 H (11.5-14.5) % MPV 12.4 H (9.5-12.2) FL Neutrophils # 1.30 L (1.80-7.70) X 10*3/uL Lymphocytes # 0.47 L (0.90-5.00) X 10*3/uL Monocytes # 0.13 L (0.20-1.00) X 10*3/uL Eosinophils # 0.02 L (0.04-0.35) X 10*3/uL Calcium 7.5 L (8.7-10.3) mg/dL Total Bilirubin 1.6 H (0.3-1.2) mg/dL ALT 61 H (10-49) U/L Total Protein 4.8 L (6.2-8.2) g/dL Albumin 2.7 L (3.8-4.9) g/dL Albumin/Globulin Ratio 1.29 L (1.60-3.17) Ratio Microbiology - Last 24 Hours (Table) 01/28/24 06:35 Blood Culture - Final Blood 01/28/24 06:20 Blood Culture - Final Blood Assessment and Plan Assessment: Acute hypoxemic respiratory failure, likely multifactorial, in part related to possible pneumonia, and exacerbated by new onset atrial fibrillation/RVR. History of multiple myeloma. Anemia, S/P packed red blood cell transfusion. Pancytopenia, secondary to chemotherapeutic agent. Anion gap metabolic acidosis. Lactic acidemia. History of hypertension. Plan: The patient was seen and evaluated Chest x-ray, labs and medications reviewed Titrate down the FiO2 as tolerated Remains on Zosyn Will continue to follow I have personally seen and examined the patient, performed the documentation and the assessment and plan as written. Number of minutes spent on the visit: 10.
--- NOTE | 2024-02-03 15:32 | P.PN ---
Subjective Progress Note Date: 02/02/24 Principal diagnosis: Reason for follow-up is sepsis and pneumonia Patient is a 78-year-old male with a past medical history significant for multiple myeloma previously has been on chemotherapy and hypertension presenting to the hospital with increasing shortness of breath patient did have a fever elevated procalcitonin CT of the chest with pneumonitis/pneumonia. On today's evaluation that is 02/02/2024, Patient is afebrile patient is currently on 3 L nasal cannula oxygen and denies having any shortness of breath, the patient denies any chest pain or any worsening cough, the patient denies any nausea vomiting did not have any abdominal pain and no diarrhea Patient white count of 2.18, creatinine 0.8 Objective - Vital Signs Vital signs: Vital Signs Temp 97.5 F L 02/02/24 14:00 Pulse 96 02/02/24 15:26 Resp 17 02/02/24 14:00 BP 108/63 02/02/24 14:00 Pulse Ox 95 02/02/24 14:00 FiO2 50 01/31/24 09:50 Intake & Output 02/01/24 02/02/24 02/02/24 18:59 06:59 18:59 Intake Total 480 Output Total 150 Balance -150 480 Intake: Oral 480 Output: Urine 150 Other: Voiding Method Toilet Urinal # Voids 1 2 # Bowel Movements 1 - Exam GENERAL DESCRIPTION: An elderly male up in the chair in no distress RESPIRATORY SYSTEM: Unlabored breathing , coarse breath sounds bilaterally HEART: S1 S2 regular rate and rhythm , ABDOMEN: Soft , no tenderness EXTREMITIES: No edema feet - Labs CBC & Chem 7: 02/03/24 05:22 02/03/24 05:22 Labs: Abnormal Lab Results - Last 24 Hours (Table) 02/02/24 02/02/24 Range/Units 03:44 03:44 WBC 2.18 L (4.50-10.00) X 10*3/uL RBC 2.40 L (4.40-5.60) X 10*6/uL Hgb 7.3 L (13.0-17.0) g/dL Hct 22.3 L (39.6-50.0) % RDW 16.1 H (11.5-14.5) % MPV 12.3 H (9.5-12.2) FL Neutrophils # 1.49 L (1.80-7.70) X 10*3/uL Lymphocytes # 0.52 L (0.90-5.00) X 10*3/uL Monocytes # 0.12 L (0.20-1.00) X 10*3/uL Eosinophils # 0.03 L (0.04-0.35) X 10*3/uL Glucose 115 H (70-110) mg/dL Calcium 7.6 L (8.7-10.3) mg/dL Total Bilirubin 1.7 H (0.3-1.2) mg/dL ALT 57 H (10-49) U/L Alkaline Phosphatase 130 H (41-126) U/L Total Protein 4.8 L (6.2-8.2) g/dL Albumin 2.6 L (3.8-4.9) g/dL Albumin/Globulin Ratio 1.18 L (1.60-3.17) Ratio Microbiology - Last 24 Hours (Table) 01/28/24 06:35 Blood Culture - Final Blood 01/28/24 06:20 Blood Culture - Final Blood Assessment and Plan (1) Pneumonitis Current Visit: Yes Status: Acute Code(s): J98.4 - OTHER DISORDERS OF LUNG SNOMED Code(s): 968909714 Plan: 1patient presented to hospital with sepsis in this patient who did have a low- grade fever tachycardia leukopenia source is likely pneumonia in this patient who did have a history of multiple myeloma and did have a significantly low white count will need to cover for resistant gram-negative to be the likely pathogen less likely MRSA 2-blood and sputum culture have been obtained and so far negative 3-patient remains to be febrile white count is still on the low side continue Zosyn and monitor clinical course closely Dictation was produced using [employer] dictation software. please excuse any grammatical, word or spelling errors. Time with Patient: Less than 30
--- NOTE | 2024-02-03 15:33 | P.PN ---
Subjective Progress Note Date: 02/03/24 Principal diagnosis: Reason for follow-up is sepsis and pneumonia Patient is a 78-year-old male with a past medical history significant for multiple myeloma previously has been on chemotherapy and hypertension presenting to the hospital with increasing shortness of breath patient did have a fever elevated procalcitonin CT of the chest with pneumonitis/pneumonia. On today's evaluation that is 02/02/2024, Patient is afebrile patient is currently on room air and denies having any shortness of breath, the patient denies any chest pain continue to have a cough but denies any worsening cough or sputum production, the patient denies any nausea vomiting did not have any abdominal pain and no diarrhea. The patient white count is 1.94, creatinine 0.8, blood culture has been negative sputum negative did have a chest x-ray this morning reported still pending Objective - Vital Signs Vital signs: Vital Signs Temp 98.5 F 02/03/24 14:00 Pulse 98 02/03/24 14:00 Resp 17 02/03/24 14:00 BP 125/62 02/03/24 14:00 Pulse Ox 92 L 02/03/24 14:00 FiO2 50 01/31/24 09:50 Intake & Output 02/02/24 02/03/24 02/03/24 18:59 06:59 18:59 Intake Total 950 240 Balance 950 240 Intake: Oral 950 240 Other: Voiding Method Toilet Toilet Urinal # Voids 3 3 - Exam GENERAL DESCRIPTION: An elderly male up in the chair in no distress RESPIRATORY SYSTEM: Unlabored breathing , coarse breath sounds bilaterally HEART: S1 S2 regular rate and rhythm , ABDOMEN: Soft , no tenderness EXTREMITIES: No edema feet - Labs CBC & Chem 7: 02/03/24 05:22 02/03/24 05:22 Labs: Abnormal Lab Results - Last 24 Hours (Table) 02/03/24 02/03/24 Range/Units 05:22 05:22 WBC 1.94 L (4.50-10.00) X 10*3/uL RBC 2.29 L (4.40-5.60) X 10*6/uL Hgb 7.1 L (13.0-17.0) g/dL Hct 21.8 L (39.6-50.0) % RDW 16.1 H (11.5-14.5) % MPV 12.4 H (9.5-12.2) FL Neutrophils # 1.30 L (1.80-7.70) X 10*3/uL Lymphocytes # 0.47 L (0.90-5.00) X 10*3/uL Monocytes # 0.13 L (0.20-1.00) X 10*3/uL Eosinophils # 0.02 L (0.04-0.35) X 10*3/uL Calcium 7.5 L (8.7-10.3) mg/dL Total Bilirubin 1.6 H (0.3-1.2) mg/dL ALT 61 H (10-49) U/L Total Protein 4.8 L (6.2-8.2) g/dL Albumin 2.7 L (3.8-4.9) g/dL Albumin/Globulin Ratio 1.29 L (1.60-3.17) Ratio Microbiology - Last 24 Hours (Table) 01/28/24 06:35 Blood Culture - Final Blood 01/28/24 06:20 Blood Culture - Final Blood Assessment and Plan (1) Pneumonitis Current Visit: Yes Status: Acute Code(s): J98.4 - OTHER DISORDERS OF LUNG SNOMED Code(s): 175389738 Plan: 1patient presented to hospital with sepsis in this patient who did have a low-g rade fever tachycardia leukopenia source is likely pneumonia in this patient who did have a history of multiple myeloma and did have a significantly low white count will need to cover for resistant gram-negative to be the likely pathogen less likely MRSA 2-blood and sputum culture have been obtained and so far negative 3-patient remains to be febrile patient did have a chest x-ray this morning rep orted still pending with a culture negative and resistant pathogen we will discontinue Zosyn and a short course of Ceftin/Omnicef Dictation was produced using [employer] dictation software. please excuse any grammatical, word or spelling errors. Time with Patient: Less than 30
--- NOTE | 2024-02-03 16:56 | XR ---
EXAM: XR chest 1V portable CLINICAL INDICATION:Male, 78 years old with history of Pneumonia; [facility] COMPARISON: 01/30/2024 TECHNIQUE: Chest single view. FINDINGS: Redemonstration of chronic interstitial changes and scattered senescent parenchymal change. Ill-defin ed opacities over the lung apices attributed to overlap of structures. No focal acute consolidation, pleural effusion, or pneumothorax. Heart is stable. Mediastinal and hilar structures appear stable. Osseous structures appear unchanged with degenerative changes of the dorsal spine again noted. IMPRESSION: Stable chronic changes, without evidence for acute pulmonary disease.
[2024-02-03] MEDS: CEFDINIR 300 MG CAP PO SCH (21:13)
--- NOTE | 2024-02-04 12:14 | P.PN ---
Subjective Progress Note Date: 02/04/24 Principal diagnosis: Reason for follow-up is sepsis and pneumonia Patient is a 78-year-old male with a past medical history significant for multiple myeloma previously has been on chemotherapy and hypertension presenting to the hospital with increasing shortness of breath patient did have a fever elevated procalcitonin CT of the chest with pneumonitis/pneumonia. On today's evaluation that is 02/04/2024,the patient denies any fever or any chills, patient is breathing comfortably on 3 L nasal cannula oxygen, the patient denies chest pain shortness of breath and no significant cough, patient denies abdominal pain, no nausea vomiting or diarrhea, feeling better wants to go home. No new labs were obtained today sputum culture negative Objective - Vital Signs Vital signs: Vital Signs Temp 97.7 F 02/04/24 07:46 Pulse 104 H 02/04/24 11:57 Resp 20 02/04/24 07:46 BP 124/66 02/04/24 07:46 Pulse Ox 91 L 02/04/24 07:46 FiO2 50 01/31/24 09:50 Intake & Output 02/03/24 02/04/24 02/04/24 18:59 06:59 18:59 Intake Total 240 650 Balance 240 650 Intake: Oral 240 650 Other: Voiding Method Toilet Toilet Urinal # Voids 4 4 - Exam GENERAL DESCRIPTION: An elderly male up in the chair in no distress RESPIRATORY SYSTEM: Unlabored breathing , coarse breath sounds bilaterally HEART: S1 S2 regular rate and rhythm , ABDOMEN: Soft , no tenderness EXTREMITIES: No edema feet - Labs CBC & Chem 7: 02/03/24 05:22 02/03/24 05:22 Assessment and Plan (1) Pneumonitis Current Visit: Yes Status: Acute Code(s): J98.4 - OTHER DISORDERS OF LUNG SNOMED Code(s): 075408464 Plan: 1patient presented to hospital with sepsis in this patient who did have a low- grade fever tachycardia leukopenia source is likely pneumonia in this patient who did have a history of multiple myeloma and did have a significantly low white count will need to cover for resistant gram-negative to be the likely pathogen less likely MRSA 2-blood and sputum culture have been obtained and so far negative 3-patient remains to be febrile and culture has been negative has received adequate Zosyn currently on Omnicef continue for few days on discharge questions answered Dictation was produced using [employer] software. please excuse any grammatical, word or spelling errors. Time with Patient: Less than 30
[2024-02-04 13:05] VITALS: BMI 28.0
--- NOTE | 2024-02-04 16:14 | P.PN ---
Subjective Progress Note Date: 02/04/24 No acute events. Patient resting comfortably in bed at today's visit. Patient reports he is feeling well and is ready for discharge. Neutropenia and anemia stable. Objective - Vital Signs Vital signs: Vital Signs Temp 98.1 F 02/04/24 14:00 Pulse 96 02/04/24 15:54 Resp 18 02/04/24 14:00 BP 116/68 02/04/24 14:00 Pulse Ox 97 02/04/24 14:00 FiO2 50 01/31/24 09:50 Intake & Output 02/03/24 02/04/24 02/04/24 18:59 06:59 18:59 Intake Total 240 650 Balance 240 650 Weight 91.4 kg Intake: Oral 240 650 Other: Voiding Method Toilet Toilet Urinal # Voids 4 4 - Constitutional General appearance: Present: average body habitus, no acute distress - EENT Eyes: Present: anicteric sclerae, EOMI ENT: Present: hearing grossly normal - Respiratory Details: breathing is even and unlabored - Cardiovascular Details: skin warm and dry - Gastrointestinal General gastrointestinal: Present: soft. Absent: tenderness - Integumentary Integumentary: Present: pale. Absent: cyanotic - Neurologic Neurologic: Present: CNII-XII intact - Musculoskeletal Musculoskeletal: Present: strength equal bilaterally - Psychiatric Psychiatric: Present: A&O x's 3 - Labs CBC & Chem 7: 02/03/24 05:22 02/03/24 05:22 Assessment and Plan (1) Anemia Current Visit: Yes Status: Acute Priority: High Code(s): D64.9 - ANEMIA, UNSPECIFIED SNOMED Code(s): 376572529 (2) New onset a-fib Current Visit: Yes Status: Acute Priority: High Code(s): I48.91 - UNSPECIFIED ATRIAL FIBRILLATION SNOMED Code(s): 74757486 (3) Multiple myeloma Current Visit: Yes Status: Chronic Priority: High Code(s): C90.00 - MULTIPLE MYELOMA NOT HAVING ACHIEVED REMISSION SNOMED Code(s): 771230077 (4) Sepsis Current Visit: Yes Status: Acute Priority: High Code(s): A41.9 - SEPSIS, UNSPECIFIED ORGANISM SNOMED Code(s): 54892516 Plan: Fever -Patient reporting temperature of 102+ Fahrenheit prior to admission, upper respiratory symptoms. T max 99.8 since admit -Elevated lactic on admission as well as BNP, increased heart rate and respiratory rate -Panculture workup negative -Continues on abx, ID following Anemia -Significant change from 01/21-hemoglobin was 9.9. On admission it was 5.9. S/p 2 units PRBCs -Transfuse for a Hgb <7 or if symptomatic -No reports of bleeding, concerns for significant change in hemoglobin, and elevated bilirubin. Hemolysis work up obtained and was negative -Patient and are reporting recent symptoms of upper respiratory infection. May be contributing to additional stress on the bone marrow and worsening anemia -Patient does have B12 deficiency. He is on parenteral supplementation for the same. No nutritional deficiencies noted on anemia workup MM -Held single agent revlimid 1 week prior to admit as pt was not feeling well at that time -Recent MM labs were stable -Will continue to hold revlimid, and schedule lab encounter for CBC recheck on 02/07, and f/u with Dr. Jovel in 2 weeks
--- NOTE | 2024-02-04 17:10 | P.PN ---
Subjective Progress Note Date: 02/04/24 Christopher Fonseca, is a 78-year-old male who presented to [facility] emergency room with a chief complaint of worsening shortness of breath. patient has a known history of multiple myeloma, followed by oncology. He was evaluated in the emergency room vital examination on presentation reveale d a temperature of 97.8 pulse 137 respiration 22 blood pressure 128/58 pulse ox 86% on 4 L nasal cannula Laboratory data reveals a white blood count of 1.7 hemoglobin 5.9 platelet count 125 d-dimer 1.3 ABG revealed a pH of 7.41 pCO2 37 by mouth to 154 BUN 37 creatinine 1.03 Testing in the emergency room revealed CT angiogram of the chest revealed no evidence of pulmonary embolism chest x-ray was suggestive of acute bronchitis with pneumonitis, EKG revealed evidence of atrial fibrillation with rapid ventricular response Patient was admitted to intensive care unit, he was started on IV antibiotics, pulmonary cardiology and oncology consultation were requested. on 01/29/2024 patient's alert and oriented resting comfortably in bed. Patient remains in the intensive care unit patient is having increased coughing. Concerns per nursing staff about possible aspiration on water. Speech services will be consulted.patient remains on IV Cardizem. Patient also on IV antibiotics vancomycin and Zosyncurrent vital signs temp 98.1, heart rate 85, Respiratory rate 29, blood pressure 109/63 with a pulse ox 96% on 6 L On 01/30/2024 patient's alert and oriented resting comfortably in bed. Patient remains in the intensive care unit. Patient was evaluated by speech services dietary recommendations in chart. Infectious disease services are following.Patient remains on IV antibiotics Zosyn. White blood cell improving to 1.9. Cardiology, pulmonary, oncology and infectious disease service is following On 01/31/2024 patient was seen and examined on the medical floor, he is alert and oriented 3 in no apparent distress, he is resting comfortably in bed, he is complaining of cough and shortness of breath, otherwise he denies any complaints, he is still maintained on oxygen 4 L via nasal cannula, there is no fever or chills no headache or dizziness no chest pain no nausea or vomiting no abdominal pain no diarrhea, no urinary symptoms Canseco catheter is in, patient remains on IV antibiotic Zosyn, hemoglobin today is down to 6.5, 1 unit of red blood cell transfusion was ordered On 02/01/2024 patient's alert and oriented 3. Patient reports improvement.Current vital signs temp 97.4, heart rate 110, respiratory rate 18, blood pressure 124/68 with a pulse ox 92% on 5 L. Repeat blood work has been ordered. Patient denies chest pain or shortness of breath. Patient denies nausea vomiting or diarrhea. Patient denies any urinary burning or frequency. on 02/02/2024 patient was seen and examined on the medical floor, he is alert and oriented 3 in no distress, he denies any complaints at this time but is no fever or chills no headache or dizziness no chest pain no shortness of breath at rest he has occasional cough no nausea or vomiting no abdominal pain no diarrhea and no urinary symptoms, patient remains on oxygen via nasal cannula, his vital exam reveals temperature of 97.4 pulse 93 respiration 19 and blood pressure 139/73 and pulse ox 97% on 4 L nasal cannula, white blood count is 2.6 hemoglobin 7.9 platelet count 138 BUN 12.7 creatinine 0.8. For DVT prophylaxis patient is on SCD stockings, he is followed by cardiology pulmonary, infectious disease, and oncology, patient is improving gradually, he remains on IV Zosyn, he received 1 unit of red blood cell transfusion during this admission. On 02/03/2024 patient's alert and oriented 3 patient remains on 3 L nasal cannula. Patient reports productive cough. Patient denies chest pain. Patient denies nausea vomiting or diarrhea. Patient denies any urinary burning or frequency. White blood cell 1.94 hemoglobin 7.1. Vital signs temp 98.0, heart rate 82, respiratory rate 18, blood pressure 132/72 and a pulse ox of 92%on 3 L on 02/04/2024 patient was seen and examined on the medical floor he is alert and oriented 3 in no apparent distress he is still complaining of occasional cough and shortness of breath with activity otherwise he denies any complaints there is no fever or chills no headache or dizziness no chest pain no palpitation no nausea or vomiting no abdominal pain no diarrhea and no urinary symptoms, vital labs and x-ray results reviewed, possible discharge to home in the next 1-2 days Objective - Vital Signs Vital signs: Vital Signs Temp 97.7 F 02/04/24 07:46 Pulse 108 H 02/04/24 09:10 Resp 20 02/04/24 07:46 BP 124/66 02/04/24 07:46 Pulse Ox 91 L 02/04/24 07:46 FiO2 50 01/31/24 09:50 Intake & Output 02/03/24 02/04/24 02/04/24 18:59 06:59 18:59 Intake Total 240 650 Balance 240 650 Intake: Oral 240 650 Other: Voiding Method Toilet Toilet Urinal # Voids 4 4 - Exam Head normocephalic Neck supple Lungs expiratorywheezing Heart regular rate and rhythm S1-S2, no rub or gallop Abdomen is soft nontender nondistended positive bowel sounds no hepatosplenomegaly Extremities no edema Neuro alert and orientated to 3 - Labs CBC & Chem 7: 02/03/24 05:22 02/03/24 05:22 Labs: Abnormal Lab Results - Last 24 Hours (Table) 02/03/24 02/03/24 Range/Units 05:22 05:22 WBC 1.94 L (4.50-10.00) X 10*3/uL RBC 2.29 L (4.40-5.60) X 10*6/uL Hgb 7.1 L (13.0-17.0) g/dL Hct 21.8 L (39.6-50.0) % RDW 16.1 H (11.5-14.5) % MPV 12.4 H (9.5-12.2) FL Neutrophils # 1.30 L (1.80-7.70) X 10*3/uL Lymphocytes # 0.47 L (0.90-5.00) X 10*3/uL Monocytes # 0.13 L (0.20-1.00) X 10*3/uL Eosinophils # 0.02 L (0.04-0.35) X 10*3/uL Calcium 7.5 L (8.7-10.3) mg/dL Total Bilirubin 1.6 H (0.3-1.2) mg/dL ALT 61 H (10-49) U/L Total Protein 4.8 L (6.2-8.2) g/dL Albumin 2.7 L (3.8-4.9) g/dL Albumin/Globulin Ratio 1.29 L (1.60-3.17) Ratio Assessment and Plan Plan: Acute hypoxic respiratory failure New onset atrial fibrillation with RVR.per cardiology sinus tachycardia no evidence of atrial fibrillation acute purulent bronchitis with possible pneumonia acute metabolic acidosis History of multiple myeloma. Anemia, S/P packed red blood cell transfusion. Pancytopenia, secondary to chemotherapeutic agent. underlying history of hypertension. Patient has been transferred out of the intensive care unit He was started on BiPAP patient was started on IV antibiotics Home medications reviewed and reordered Pulmonary and cardiology consultation requested Also oncology consultation requested in regard to multiple myeloma Will follow closely
--- NOTE | 2024-02-04 17:26 | P.PN ---
Subjective Progress Note Date: 02/04/24 78-year-old male who was seen in the emergency department, beginning on January 27, at 4:30 in the morning. The patient has a history of multiple myeloma, and hypertension. Over the last few days or so, the patient and his , have both been sick with an upper respiratory tract infection. It caused him to have significant shortness of breath, and weakness, over the last week or so. Because the shortness of breath was worsening, the patient decided to be evaluated in the emergency department. The patient was seen in the emergency department, by the ER physician, and was also briefly seen by my nurse practitioner. The patient is being admitted with the possibility of infection in the lung, and, anemia, as well as atrial fibrillation with RVR. Currently, the patient is on BiPAP, with settings of 14/6 and 50%. The patient is getting saline at 75 cc an hour. The patient's hemoglobin was 5.9. 1 unit of blood was ordered. The patient was placed on a Cardizem drip, at 5 mg an hour. He was also given vancomycin and Zosyn for possible pneumonia. Laboratory data includes a white count 1.7, hemoglobin 5.9, hematocrit 17.7, and a platelet count of 125,000. D-dimer was 1.32. Venous blood gases showed a pH of 7.38 and a pCO2 of 37. Sodium 138, potassium 4.1, chlorides 107, CO2 18, anion gap 13, BUN 37, and creatinine 1.03. Glucose was 235. Repeat was 148. Lactic acid was 7.6, calcium 7.9, albumin 2.6. N-terminal proBNP was 1230. Troponin was 0.027. Urine appears relatively benign. He tested negative for influenza A, B, RSV, and coronavirus. Chest x-ray shows some patchy pneumonitis. CT angiogram was negative for pulmonary embolism, but did show some changes of pneumonitis, particularly in the lower lobes the right middle lobe. Infectious, or inflammatory etiology was proposed. Progress note dated January 29, 2024. 78-year-old male seen yesterday in consultation. The patient has a history of multiple myeloma and hypertension, and came into the hospital with an acute respiratory infection, possibly pneumonia. The patient was on BiPAP yesterday, and is currently on 5 L nasal cannula. He did use BiPAP last night for about 4 hours, with settings of 16/8, and 50%. The patient is on Cardizem at 5 mg an hour for his atrial fibrillation, normal saline at 20 cc an hour, and the patient continues on vancomycin and Zosyn. Clinically, he feels a lot better, and looks a lot better. White count is 1.4, hemoglobin 7.1, hematocrit 23.1, and platelet count 98,000. Sodium 141, potassium 4.4, chlorides 114, CO2 21, BUN 29, creatinine 0.79. Glucose 127. Calcium 7.2, total bilirubin 2.5. Albumin is 2.1. Procalcitonin level is 2.12. Urine is essentially negative. Chest x-ray shows minimal infiltrates bilaterally. Progress note dated January 30, 2024. 78-year-old male admitted with a diagnosis of possible pneumonia and respiratory failure. Currently he is seen in the intensive care unit, room 256. He is currently on nasal cannula at 5 L. He did use the BiPAP device last night, for a couple of hours, with settings of 16/8 and 50%. The patient continues on Zosyn. The patient could be transferred out to the general medical floor with telemetry. Will add some Tessalon Perles, for his cough. White count 1.9, hemoglobin 7.1, hematocrit 21.8, and platelet count was 95,000. Sodium 140, potassium 4, chlorides 113, CO2 23, BUN 21, creatinine 0.73. Calcium 7.4. Total bilirubin 2.6. Albumin is 2.1. Microbiologic studies are negative or pending. Chest x-ray shows some chronic changes, without an acute disease process. Progress note dated January 31, 2024. 78-year-old admitted with a diagnosis of pneumonia and respiratory failure. He is seen today in room 256. He is currently on 5 L nasal cannula. He is getting saline at KVO. He continues on Zosyn. He will receive another unit of blood. He has received a total of 2 units of PRBCs. Today's hemoglobin was 6.5. Today's labs include a white count 1.9, hemoglobin 6.5, hematocrit 20.6, and a platelet count of 113,000. Sodium 140, potassium 4.2, chloride 111, CO2 25, BUN 19, and creatinine 0.7. Glucose is 111. Calcium is 7.4, bilirubin 2.2. Albumin 2.1. Blood cultures and sputum sampling is negative thus far. No chest x-ray today. Progress note dated February 01, 2024. The patient is seen today in room 453. He is feeling much better. He is on 5 L of oxygen by nasal cannula. He continues on Zosyn. He has no specific complaints today. His breathing is much improved. He talks about getting out of the hospital, and playing golf. Current labs include a white count 1.9, hemoglobin 6.5, hematocrit 20.6, platelet count 113,000. Sodium 140, potassium 4.2, chloride 111, CO2 25, BUN 19, creatinine 0.7. Calcium is 7.4. Albumin is 2.1. Microbiologic studies are thus far negative. No chest x-ray today. The patient is seen today February 02, 2024 in follow-up on the regular medical floor. He is currently resting comfortably in bed. Awake and alert in no acute distress. Maintaining O2 saturations in the 90s on 3 L/min per nasal cannula. He is feeling better today compared to yesterday. He is status post 2 units of packed red blood cells this admission. Current hemoglobin 7.3. White count 2.1. Platelets 147. Sodium 141. Potassium 3.9. Bicarb 27. BUN 13. Creatinine 0.8. Glucose 115. Procalcitonin was 2.12. He remains on Zosyn. Continued on bronchodilators, Tessalon Perles. The patient is seen today February 03, 2024 in follow-up on the regular medical floor. He is sitting up at the bedside. Awake and alert in no acute distress. Maintaining O2 saturations in the 90s on 3 L/min per nasal cannula. No IV fluids. He is continued on Zosyn. Follow-up chest x-ray reveals similar findings of chronic changes but no acute pulmonary process. Blood cultures revealed no growth. Sputum culture revealed no growth. Count 1.9. Hemoglobin 7.1. Platelets 175. Sodium 141. Potassium 3.6. Bicarb 26. BUN 11. Creatinine 0.8. Glucose 106. Continued on bronchodilators and Tessalon Perles. On today's evaluation of 02/04/2024, seen the patient for a follow-up. The patient is feeling well. No significant shortness of breath. The patient presented with shortness of breath and hypoxic respiratory failure in addition to A-fib RVR. Patient is known to have multiple myeloma and he suffers from chronic anemia. He was anemic at time of admission he was transfused with a packed RBC. He remains pancytopenic and the blood work from today shows a WBC count of 1.94 with a hemoglobin of 7.1 and a platelet count of 175. The creatinine is also abnormal gait is improving. Creatinine is down to 1.6. He remains on Omnicef. He is on DuoNeb updrafts [id number]. He is afebrile for now on 3 L of oxygen by nasal cannula with a pulse ox of 97%. A chest x-ray was obtained yesterday showed chronic interstitial changes and scattered senescent parenchymal changes and ill-defined opacities over the lung apices bilaterally. No consolidation. No airspace disease. Findings are essentially stable for now. The patient has no specific complaints. Denies having any chest pain. He is currently afebrile. The sputum Gram stain and culture is negative. The blood culture is also negative. He is comfortable and he feels well for now. Objective - Vital Signs Vital signs: Vital Signs Temp 97.7 F 02/04/24 07:46 Pulse 104 H 02/04/24 11:57 Resp 20 02/04/24 07:46 BP 124/66 02/04/24 07:46 Pulse Ox 91 L 02/04/24 07:46 FiO2 50 01/31/24 09:50 Intake & Output 02/03/24 02/04/24 02/04/24 18:59 06:59 18:59 Intake Total 240 650 Balance 240 650 Intake: Oral 240 650 Other: Voiding Method Toilet Toilet Urinal # Voids 4 4 - Exam GENERAL EXAM: Alert, pleasant 78-year-old male, sitting up at the bedside, on 3 L nasal cannula, in no apparent distress. HEAD: Normocephalic. EYES: Normal reaction of pupils, equal size. NOSE: Clear with pink turbinates. THROAT: No erythema or exudates. NECK: No masses, no JVD. CHEST: No chest wall deformity. LUNGS: Equal air entry with no crackles, wheeze, rhonchi or dullness. CVS: S1 and S2 normal with no audible murmur, regular rhythm. ABDOMEN: No hepatosplenomegaly, normal bowel sounds, no guarding or rigidity. SPINE: No scoliosis or deformity SKIN: No rashes CENTRAL NERVOUS SYSTEM: No focal deficits, tone is normal in all 4 extremities. EXTREMITIES: There is no peripheral edema. No clubbing, no cyanosis. Peripheral pulses are intact. - Labs CBC & Chem 7: 02/03/24 05:22 02/03/24 05:22 Assessment and Plan Plan: Acute hypoxemic respiratory failure, likely multifactorial, in part related to possible pneumonia. The patient is currently on 3 L of oxygen by nasal cannula with a pulse ox of 97%. No significant shortness of breath and his overall condition is stable and is improving. Multifocal atrial tachycardia, stable for now there is no evidence of any atrial fibrillation. History of multiple myeloma. Patient has pancytopenia, hemoglobin is stable for now. Anemia, S/P packed red blood cell transfusion. Most recent hemoglobin from yesterday is at 7.1. Pancytopenia, secondary to chemotherapeutic agent. Chronic kidney disease, stage III, rule out myeloma kidney. Patient also had a component of acute kidney injury which is essentially improving. History of hypertension. Plan: Patient has been switched to oral antibiotics with IV Zosyn has been discontinued. Wean down FiO2 as tolerated to maintain saturation above 90%. Discharge planning is in progress. Repeat labs. Will continue to follow
[2024-02-05 06:25] LABS: Anisocytosis Slight; Basophils % (A) 1 %; Eosinophils % (A) 1 %; HCT 24.8 % (39.0-53.0); HGB 7.8 gm/dL (13.0-17.5); Hypochromasia Slight; Lymphocytes # (A) 0.7 k/uL (1.0-4.8); Lymphocytes % (A) 31 %; MCH 30.3 pg (25.0-35.0); MCHC 31.6 g/dL (31.0-37.0); Macrocytosis Slight; Mean Platelet Volume 9.3; Monocytes # (A) 0.1 k/uL (0-1.0); Monocytes % (A) 5 %; Neutrophils # (A) 1.2 k/uL (1.3-7.7); Neutrophils % (A) 60 %; RBC 2.58 m/uL (4.30-5.90); RDW 16.9 % (11.5-15.5); WBC 2.1 k/uL (3.8-10.6)
[2024-02-05 06:56] LABS: Platelet Count 301 k/uL (150-450)
[2024-02-05 08:46] VITALS: BP 157/68; RESP 19; TEMP 97.7
--- NOTE | 2024-02-05 09:33 | P.DS ---
Providers Date of admission: 01/28/24 06:25 Expected date of discharge: 02/05/24 Attending physician: Maritza Calvillo Consults: 01/28/24 06:07 Consult Physician Urgent Consulting Provider: Becka Elizabeth Consult Reason/Comments: hypoxic respiratory failure, multiple myeloma, anemia, new onset afib Do you want consulting provider notified?: Yes 01/28/24 06:22 Consult Physician Routine Consulting Provider: Orlin Jovel Consult Reason/Comments: multiple myeloma Do you want consulting provider notified?: Yes 01/29/24 09:03 Consult Physician Routine Consulting Provider: Mary Field Consult Reason/Comments: sepsis Do you want consulting provider notified?: Yes 02/01/24 09:50 Consult Physician Routine Consulting Provider: Abebe Marie Consult Reason/Comments: IPR consult Do you want consulting provider notified?: Yes Primary care physician: Maritza Calvillo [facility] Course: discharge diagnosis Acute hypoxic respiratory failure per cardiology sinus tachycardia no evidence of atrial fibrillation acute purulent bronchitis with possible pneumonia acute metabolic acidosis History of multiple myeloma. Anemia, S/P packed red blood cell transfusion. Pancytopenia, secondary to chemotherapeutic agent. underlying history of hypertension. Hospital course Christopher Fonseca, is a 78-year-old male who presented to [facility] emergency room with a chief complaint of worsening shortness of breath. patient has a known history of multiple myeloma, followed by oncology. He was evaluated in the emergency room vital examination on presentation revealed a temperature of 97.8 pulse 137 respiration 22 blood pressure 128/58 pulse ox 86% on 4 L nasal cannula Laboratory data reveals a white blood count of 1.7 hemoglobin 5.9 platelet count 125 d-dimer 1.3 ABG revealed a pH of 7.41 pCO2 37 by mouth to 154 BUN 37 creatinine 1.03 Testing in the emergency room revealed CT angiogram of the chest revealed no evidence of pulmonary embolism chest x-ray was suggestive of acute bronchitis with pneumonitis, EKG revealed evidence of atrial fibrillation with rapid ventricular response Patient was admitted to intensive care unit, he was started on IV antibiotics, pulmonary cardiology and oncology consultation were requested. on 01/29/2024 patient's alert and oriented resting comfortably in bed. Patient remains in the intensive care unit patient is having increased coughing. Concerns per nursing staff about possible aspiration on water. Speech services will be consulted.patient remains on IV Cardizem. Patient also on IV antibiotics vancomycin and Zosyncurrent vital signs temp 98.1, heart rate 85, Respiratory rate 29, blood pressure 109/63 with a pulse ox 96% on 6 L On 01/30/2024 patient's alert and oriented resting comfortably in bed. Patient remains in the intensive care unit. Patient was evaluated by speech services dietary recommendations in chart. Infectious disease services are following.Patient remains on IV antibiotics Zosyn. White blood cell improving to 1.9. Cardiology, pulmonary, oncology and infectious disease service is princess camacho On 01/31/2024 patient was seen and examined on the medical floor, he is alert and oriented 3 in no apparent distress, he is resting comfortably in bed, he is complaining of cough and shortness of breath, otherwise he denies any complaints, he is still maintained on oxygen 4 L via nasal cannula, there is no fever or chills no headache or dizziness no chest pain no nausea or vomiting no abdominal pain no diarrhea, no urinary symptoms Canseco catheter is in, patient remains on IV antibiotic Zosyn, hemoglobin today is down to 6.5, 1 unit of red blood cell transfusion was ordered On 02/01/2024 patient's alert and oriented 3. Patient reports improvement.Current vital signs temp 97.4, heart rate 110, respiratory rate 18, blood pressure 124/68 with a pulse ox 92% on 5 L. Repeat blood work has been ordered. Patient denies chest pain or shortness of breath. Patient denies nausea vomiting or diarrhea. Patient denies any urinary burning or frequency. on 02/02/2024 patient was seen and examined on the medical floor, he is alert and oriented 3 in no distress, he denies any complaints at this time but is no fever or chills no headache or dizziness no chest pain no shortness of breath at rest he has occasional cough no nausea or vomiting no abdominal pain no diarrhea and no urinary symptoms, patient remains on oxygen via nasal cannula, his vital exam reveals temperature of 97.4 pulse 93 respiration 19 and blood pressure 139/73 and pulse ox 97% on 4 L nasal cannula, white blood count is 2.6 hemoglobin 7.9 platelet count 138 BUN 12.7 creatinine 0.8. For DVT prophylaxis patient is on SCD stockings, he is followed by cardiology pulmonary, infectious disease, and oncology, patient is improving gradually, he remains on IV Zosyn, he received 1 unit of red blood cell transfusion during this admission. On 02/03/2024 patient's alert and oriented 3 patient remains on 3 L nasal cannula. Patient reports productive cough. Patient denies chest pain. Patient denies nausea vomiting or diarrhea. Patient denies any urinary burning or frequency. White blood cell 1.94 hemoglobin 7.1. Vital signs temp 98.0, heart rate 82, respiratory rate 18, blood pressure 132/72 and a pulse ox of 92%on 3 L on 02/04/2024 patient was seen and examined on the medical floor he is alert and oriented 3 in no apparent distress he is still complaining of occasional cough and shortness of breath with activity otherwise he denies any complaints there is no fever or chills no headache or dizziness no chest pain no palpitation no nausea or vomiting no abdominal pain no diarrhea and no urinary symptoms, vital labs and x-ray results reviewed, possible discharge to home in the next 1-2 days On 02/05/2024 patient is alert and oriented 3. Patient is eager to be DC'd home has been tolerating room air since yesterday. Patient has been cleared for discharge from cardiology and infectious disease services. Patient will be DC'd on omnicef. Patient to follow-up with oncology services for further managment.current vital signs temp 98.4, heart rate 76, respiratory rate 17, blood pressure 128/72 with a pulse ox of 97% on room air Patient Condition at Discharge: Stable Plan - Discharge Summary New Discharge Prescriptions: New Cefdinir [Omnicef] 300 mg PO BID 5 Days #10 cap Continue Terazosin [Hytrin] 5 mg PO BID Aspirin EC [Ecotrin Low Dose] 81 mg PO DAILY Discontinued amLODIPine [Norvasc] 5 mg PO QAM Colestipol HCl [Colestid] 2 gm PO BID Discharge Medication List Terazosin [Hytrin] 5 mg PO BID 11/15/18 [History] Aspirin EC [Ecotrin Low Dose] 81 mg PO DAILY 01/28/24 [History] Cefdinir [Omnicef] 300 mg PO BID 5 Days #10 cap 02/05/24 [Rx] Follow up Appointment(s)/Referral(s): Maritza Calvillo MD [Primary Care Provider] - 1-2 days Orlin Jovel MD [STAFF PHYSICIAN] - 03/04/24 8:00 am (Also, there is an appt for 02/20 at 2:30pm for a B12 injection at Dr. Jovel's office ) Activity/Diet/Wound Care/Special Instructions: activity as tolerated diet heart healthy Discharge Disposition: HOME SELF-CARE
[2024-02-05 09:35] VITALS: PULSE 88
--- NOTE | 2024-02-05 15:29 | P.PN ---
Subjective Progress Note Date: 02/05/24 78-year-old male who was seen in the emergency department, beginning on January 27, at 4:30 in the morning. The patient has a history of multiple myeloma, and hypertension. Over the last few days or so, the patient and his , have both been sick with an upper respiratory tract infection. It caused him to have significant shortness of breath, and weakness, over the last week or so. Because the shortness of breath was worsening, the patient decided to be evaluated in the emergency department. The patient was seen in the emergency department, by the ER physician, and was also briefly seen by my nurse practitioner. The patient is being admitted with the possibility of infection in the lung, and, anemia, as well as atrial fibrillation with RVR. Currently, the patient is on BiPAP, with settings of 14/6 and 50%. The patient is getting saline at 75 cc an hour. The patient's hemoglobin was 5.9. 1 unit of blood was ordered. The patient was placed on a Cardizem drip, at 5 mg an hour. He was also given vancomycin and Zosyn for possible pneumonia. Laboratory data includes a white count 1.7, hemoglobin 5.9, hematocrit 17.7, and a platelet count of 125,000. D-dimer was 1.32. Venous blood gases showed a pH of 7.38 and a pCO2 of 37. Sodium 138, potassium 4.1, chlorides 107, CO2 18, anion gap 13, BUN 37, and creatinine 1.03. Glucose was 235. Repeat was 148. Lactic acid was 7.6, calcium 7.9, albumin 2.6. N-terminal proBNP was 1230. Troponin was 0.027. Urine appears relatively benign. He tested negative for influenza A, B, RSV, and coronavirus. Chest x-ray shows some patchy pneumonitis. CT angiogram was negative for pulmonary embolism, but did show some changes of pneumonitis, particularly in the lower lobes the right middle lobe. Infectious, or inflammatory etiology was proposed. Progress note dated January 29, 2024. 78-year-old male seen yesterday in consultation. The patient has a history of multiple myeloma and hypertension, and came into the hospital with an acute respiratory infection, possibly pneumonia. The patient was on BiPAP yesterday, and is currently on 5 L nasal cannula. He did use BiPAP last night for about 4 hours, with settings of 16/8, and 50%. The patient is on Cardizem at 5 mg an hour for his atrial fibrillation, normal saline at 20 cc an hour, and the patient continues on vancomycin and Zosyn. Clinically, he feels a lot better, and looks a lot better. White count is 1.4, hemoglobin 7.1, hematocrit 23.1, and platelet count 98,000. Sodium 141, potassium 4.4, chlorides 114, CO2 21, BUN 29, creatinine 0.79. Glucose 127. Calcium 7.2, total bilirubin 2.5. Albumin is 2.1. Procalcitonin level is 2.12. Urine is essentially negative. Chest x-ray shows minimal infiltrates bilaterally. Progress note dated January 30, 2024. 78-year-old male admitted with a diagnosis of possible pneumonia and respiratory failure. Currently he is seen in the intensive care unit, room 256. He is currently on nasal cannula at 5 L. He did use the BiPAP device last night, for a couple of hours, with settings of 16/8 and 50%. The patient continues on Zosyn. The patient could be transferred out to the general medical floor with telemetry. Will add some Tessalon Perles, for his cough. White count 1.9, hemoglobin 7.1, hematocrit 21.8, and platelet count was 95,000. Sodium 140, potassium 4, chlorides 113, CO2 23, BUN 21, creatinine 0.73. Calcium 7.4. Total bilirubin 2.6. Albumin is 2.1. Microbiologic studies are negative or pending. Chest x-ray shows some chronic changes, without an acute disease process. Progress note dated January 31, 2024. 78-year-old admitted with a diagnosis of pneumonia and respiratory failure. He is seen today in room 256. He is currently on 5 L nasal cannula. He is getting saline at KVO. He continues on Zosyn. He will receive another unit of blood. He has received a total of 2 units of PRBCs. Today's hemoglobin was 6.5. Today's labs include a white count 1.9, hemoglobin 6.5, hematocrit 20.6, and a platelet count of 113,000. Sodium 140, potassium 4.2, chloride 111, CO2 25, BUN 19, and creatinine 0.7. Glucose is 111. Calcium is 7.4, bilirubin 2.2. Albumin 2.1. Blood cultures and sputum sampling is negative thus far. No chest x-ray today. Progress note dated February 01, 2024. The patient is seen today in room 453. He is feeling much better. He is on 5 L of oxygen by nasal cannula. He continues on Zosyn. He has no specific complaints today. His breathing is much improved. He talks about getting out of the hospital, and playing golf. Current labs include a white count 1.9, hemoglobin 6.5, hematocrit 20.6, platelet count 113,000. Sodium 140, potassium 4.2, chloride 111, CO2 25, BUN 19, creatinine 0.7. Calcium is 7.4. Albumin is 2.1. Microbiologic studies are thus far negative. No chest x-ray today. The patient is seen today February 02, 2024 in follow-up on the regular medical floor. He is currently resting comfortably in bed. Awake and alert in no acute distress. Maintaining O2 saturations in the 90s on 3 L/min per nasal cannula. He is feeling better today compared to yesterday. He is status post 2 units of packed red blood cells this admission. Current hemoglobin 7.3. White count 2.1. Platelets 147. Sodium 141. Potassium 3.9. Bicarb 27. BUN 13. Creatinine 0.8. Glucose 115. Procalcitonin was 2.12. He remains on Zosyn. Continued on bronchodilators, Tessalon Perles. The patient is seen today February 03, 2024 in follow-up on the regular medical floor. He is sitting up at the bedside. Awake and alert in no acute distress. Maintaining O2 saturations in the 90s on 3 L/min per nasal cannula. No IV fluids. He is continued on Zosyn. Follow-up chest x-ray reveals similar findings of chronic changes but no acute pulmonary process. Blood cultures revealed no growth. Sputum culture revealed no growth. Count 1.9. Hemoglobin 7.1. Platelets 175. Sodium 141. Potassium 3.6. Bicarb 26. BUN 11. Creatinine 0.8. Glucose 106. Continued on bronchodilators and Tessalon Perles. On today's evaluation of 02/04/2024, seen the patient for a follow-up. The patient is feeling well. No significant shortness of breath. The patient presented with shortness of breath and hypoxic respiratory failure in addition to A-fib RVR. Patient is known to have multiple myeloma and he suffers from chronic anemia. He was anemic at time of admission he was transfused with a packed RBC. He remains pancytopenic and the blood work from today shows a WBC count of 1.94 with a hemoglobin of 7.1 and a platelet count of 175. The creatinine is also abnormal gait is improving. Creatinine is down to 1.6. He remains on Omnicef. He is on [employer] [id number]. He is afebrile for now on 3 L of oxygen by nasal cannula with a pulse ox of 97%. A chest x-ray was obtained yesterday showed chronic interstitial changes and scattered senescent parenchymal changes and ill-defined opacities over the lung apices bilaterally. No consolidation. No airspace disease. Findings are essentially stable for now. The patient has no specific complaints. Denies having any chest pain. He is currently afebrile. The sputum Gram stain and culture is negative. The blood culture is also negative. He is comfortable and he feels well for now. On today's evaluation of 02/05/2024, I am seeing the patient for a follow-up. The patient on today's evaluation of 02/05/2024, the patient is stable without any complaints. He is currently on room air oxygen. No respiratory difficulties. He is ambulating. Tolerating diet. No fever. White cell count of 2.0 with hemoglobin 7.5. No nausea vomiting or diarrhea. No other specific complaints otherwise for now. The plan is to discharge this patient on a course of Omnicef to be completed on outpatient basis. Objective - Vital Signs Vital signs: Vital Signs Temp 97.7 F 02/05/24 07:34 Pulse 88 02/05/24 09:34 Resp 19 02/05/24 07:34 BP 157/68 02/05/24 07:34 Pulse Ox 95 02/05/24 09:22 FiO2 50 01/31/24 09:50 Intake & Output 02/04/24 02/05/24 02/05/24 18:59 06:59 18:59 Weight 91.4 kg Other: Voiding Method Toilet Urinal # Voids 3 2 - Exam GENERAL EXAM: Alert, pleasant 78-year-old male, sitting up at the bedside, on room air oxygen HEAD: Normocephalic. EYES: Normal reaction of pupils, equal size. NOSE: Clear with pink turbinates. THROAT: No erythema or exudates. NECK: No masses, no JVD. CHEST: No chest wall deformity. LUNGS: Equal air entry with no crackles, wheeze, rhonchi or dullness. CVS: S1 and S2 normal with no audible murmur, regular rhythm. ABDOMEN: No hepatosplenomegaly, normal bowel sounds, no guarding or rigidity. SPINE: No scoliosis or deformity SKIN: No rashes CENTRAL NERVOUS SYSTEM: No focal deficits, tone is normal in all 4 extremities. EXTREMITIES: There is no peripheral edema. No clubbing, no cyanosis. Peripheral pulses are intact. - Labs CBC & Chem 7: 02/05/24 05:43 02/03/24 05:22 Labs: Abnormal Lab Results - Last 24 Hours (Table) 02/05/24 Range/Units 05:43 WBC 2.1 L (3.8-10.6) k/uL RBC 2.58 L (4.30-5.90) m/uL Hgb 7.8 L (13.0-17.5) gm/dL Hct 24.8 L (39.0-53.0) % RDW 16.9 H (11.5-15.5) % Neutrophils # 1.2 L (1.3-7.7) k/uL Lymphocytes # 0.7 L (1.0-4.8) k/uL Assessment and Plan Plan: Acute hypoxemic respiratory failure, likely multifactorial, in part related to possible pneumonia. The patient is clinically improved and the patient is currently on room air oxygen Multifocal atrial tachycardia, stable for now there is no evidence of any atrial fibrillation. History of multiple myeloma. Patient has pancytopenia, hemoglobin is stable for now. Anemia, S/P packed red blood cell transfusion. Most recent hemoglobin from yesterday is at 7.1. Pancytopenia, secondary to chemotherapeutic agent. Chronic kidney disease, stage III, rule out myeloma kidney. Patient also had a component of acute kidney injury which is essentially improving. History of hypertension. Plan: Patient is improved and oxygenation has normalized and the patient is currently on room air oxygen Patient will be discharged home on a course of Omnicef. Resume home medications
== END 2024-02-05 13:17 | disposition home or self-care (01) | DRG 871 ==
LOC: EC 04:37 → 2SICU 06:25 → 4SSUR 02-01 07:31
PROVIDERS: ADMIT Internal Medicine; ATTEND Internal Medicine
PROC: 30233N1 Transfusion of Nonautologous Red Blood Cells into Peripheral Vein, Percutaneous Approach (ICD-10-PCS; principal; 2024-01-28)
PROC: 5A09357 Assistance with Respiratory Ventilation, Less than 24 Consecutive Hours, Continuous Positive Airway Pressure (ICD-10-PCS; 2024-01-29)
DX: A41.9 Sepsis, unspecified organism (principal); D61.810 Antineoplastic chemotherapy induced pancytopenia; I21.A1 Myocardial infarction type 2; J18.9 Pneumonia, unspecified organism; J96.01 Acute respiratory failure with hypoxia; J96.21 Acute and chronic respiratory failure with hypoxia; C90.00 Multiple myeloma not having achieved remission; I47.19 Other supraventricular tachycardia; Z96.641 Presence of right artificial hip joint; Z79.82 Long term (current) use of aspirin; X58.XXXA Exposure to other specified factors, initial encounter; T45.1X5A Adverse effect of antineoplastic and immunosuppressive drugs, initial encounter; I10 Essential (primary) hypertension; I48.91 Unspecified atrial fibrillation; J20.9 Acute bronchitis, unspecified; Z79.899 Other long term (current) drug therapy; G62.9 Polyneuropathy, unspecified
CPT/HCPCS: 36415; 36430; 36600; 71045; 71275; 80053; 80202; 81001; 82607; 82728; 82747; 82803; 82805; 83010; 83540; 83550; 83605; 83615; 83735; 83880; 84145; 84484; 85025; 85045; 85379; 85610; 85730; 86850; 86880; 86900; 86901; 86920; 87040; 87070; 87205; 87449; 87636; 93005; 93306; 94640; 94660; 94760; 96365; 96366; 96368; 96375; 99291

== ENCOUNTER 2024-03-15 12:54 | Emergency (ER) | payer MEDICARE ==
[2024-03-15 13:02] VITALS: TEMP 98.4
--- NOTE | 2024-03-15 13:19 | ED ---
General Adult HPI - General Chief complaint: Urogenital Stated complaint: can't urinate Time Seen by Provider: 03/15/24 12:55 Source: patient Mode of arrival: ambulatory Limitations: no limitations - History of Present Illness Initial comments: Dictation was produced using [employer] dictation software. please excuse any grammatical, word or spelling errors. Chief Complaint: 78-year-old male with history of multiple myeloma presents with urinary retention History of Present Illness: Patient 78-year-old male who started a new blood pressure medication. Patient states that he has not urinated in 2 days. Denies any history of prostate issues. Does have history of elevated PSA levels. He did have biopsies on his prostate in the past. Patient complaining of suprapubic fullness and pain. Denies any burning in urination. The ROS documented in this emergency department record has been reviewed and confirmed by me. Those systems with pertinent positive or negative responses have been documented in the HPI. All other systems are other negative and/or noncontributory. - Related Data Home Medications Medication Instructions Recorded Confirmed Terazosin [Hytrin] 5 mg PO BID 11/15/18 01/28/24 Aspirin EC [Ecotrin Low Dose] 81 mg PO DAILY 01/28/24 01/28/24 Previous Rx's Medication Instructions Recorded Cefdinir [Omnicef] 300 mg PO BID 5 Days #10 cap 02/05/24 Allergies Allergy/AdvReac Type Severity Reaction Status Date / Time No Known Allergies Allergy Verified 01/28/24 07:03 Review of Systems ROS Statement: Those systems with pertinent positive or pertinent negative responses have been documented in the HPI. ROS Other: All systems not noted in ROS Statement are negative. Past Medical History Past Medical History: Cancer, Hypertension Additional Past Medical History / Comment(s): MULTIPLE MYELOMA, NEUROPATHY FEET, HANDS AND LEGS History of Any Multi-Drug Resistant Organisms: None Reported Past Surgical History: Adenoidectomy, Orthopedic Surgery, Tonsillectomy Additional Past Surgical History / Comment(s): RIGHT HIP REPLACEMENT, LEFT EYE SURGERY FOR SCLERAL BUCKLE, TOOTH IMPLANT Past Psychological History: No Psychological Hx Reported Smoking Status: Never smoker Past Alcohol Use History: None Reported Past Drug Use History: None Reported - Past Family History Father Family Medical History: Cancer (gastric cancer) Mother Family Medical History: Cancer (glioblastoma) Sister(s) Family Medical History: Cancer (melanoma) General Exam - General Exam Comments Initial Comments: PHYSICAL EXAM: General Impression: Alert and oriented x3, not in acute distress HEENT: Normocephalic atraumatic, extra-ocular movements intact, pupils equal and reactive to light bilaterally, mucous membranes moist. Cardiovascular: Heart regular rate and rhythm Chest: Able to complete full sentences, no retractions, no tachypnea Abdomen: abdomen soft, suprapubic fullness and tenderness, non-distended, no organomegaly Musculoskeletal: Pulses present and equal in all extremities, no peripheral edema Motor: no focal deficits noted Neurological: CN II-XII grossly intact, no focal motor or sensory deficits noted Skin: Intact with no visualized rashes Psych: Normal affect and mood Limitations: no limitations Course Vital Signs 03/15/24 13:00 Temperature 98.4 F Pulse Rate 50 L Respiratory 20 Rate Blood Pressure 187/99 O2 Sat by Pulse 96 Oximetry - Reevaluation(s) Reevaluation #1: 03/15/24 13:18 Bladder scan is over 900 cc Medical Decision Making - Medical Decision Making Was pt. sent in by a medical professional or institution (, PA, SOCIAL WORK THERAPIST, urgent care, hospital, or fpc...) When possible be specific @ -No Did you speak to anyone other than the patient for history (EMS, parent, family, police, friend...)? What history was obtained from this source @ -No Did you review nursing and triage notes (agree or disagree)? Why? @ -I reviewed and agree with nursing and triage notes Were old charts reviewed (outside hosp., previous admission, EMS record, old EKG, old radiological studies, urgent care reports/EKG's, fpc records)? Report findings @ -No old charts were reviewed Differential Diagnosis (chest pain, altered mental status, abdominal pain women, abdominal pain men, vaginal bleeding, musculoskeletal, weakness, fever, dyspnea, syncope, headache, dizziness, GI bleed, back pain, seizure, CVA, palpatations, mental health)? @ -Not applicable EKG interpreted by me (3pts min.). @ -None done X-rays interpreted by me (1pt min.). @ -None done CT interpreted by me (1pt min.). @ -None done U/S interpreted by me (1pt. min.). @ -None done What testing was considered but not performed or refused? (CT, X-rays, U/S, labs)? Why? @ -None What meds were considered but not given or refused? Why? @ -None Did you discuss the management of the patient with other professionals (professionals i.e. , PA, SOCIAL WORK THERAPIST, lab, RT, psych nurse, social media sr strategy manager, residential green building designer, teacher, head correction officer, human services case manager)? Give summary @ -No Was smoking cessation discussed for >3mins.? @ -No Was critical care preformed (if so, how long)? @ -No Were there social determinants of health that impacted care today? How? (Ho melessness, low income, unemployed, alcoholism, drug addiction, transportation, low edu. Level, literacy, decrease access to med. care, [facility], rehab)? @ -No Was there de-escalation of care discussed even if they declined (Discuss DNR or withdrawal of care, Hospice)? DNR status @ -No What co-morbidities impacted this encounter? (DM, HTN, Smoking, COPD, CAD, Cancer, CVA, ARF, Chemo, Hep., AIDS, mental health diagnosis, sleep apnea, morbid obesity)? @ -None Was patient admitted / discharged? Hospital course, mention meds given and route, prescriptions, significant lab abnormalities, going to OR and other pertinent info. @ -78-year-old male presents with urinary retention. Bladder scan is elevated. Vital signs stable. Canseco catheter placed. Patient discharged Undiagnosed new problem with uncertain prognosis? @ -No Drug Therapy requiring intensive monitoring for toxicity (Heparin, Nitro, Insulin, Cardizem)? @ -No Were any procedures done? @ -No Diagnosis/symptom? Acute, or Chronic, or Acute on Chronic? Uncomplicated (without systemic symptoms) or Complicated (systemic symptoms)? @ -Urinary retention Side effects of treatment? @ -No Exacerbation, Progression, or Severe Exacerbation? @ -No Poses a threat to life or bodily function? How? (Chest pain, [place], [place], pneumonia, PE, COPD, DKA, ARF, appy, cholecystitis, CVA, Diverticulitis, Homicidal, Suicidal, threat to staff... and all critical care pts) @ -yes Disposition Clinical Impression: Urinary retention Disposition: HOME SELF-CARE Condition: Good Instructions (If sedation given, give patient instructions): Canseco Catheter Placement and Care (ED) Is patient prescribed a controlled substance at d/c from ED?: No Referrals: Maritza Calvillo MD [Primary Care Provider] - 1-[address] Pérez MD [STAFF PHYSICIAN] - 1-2 days Time of Disposition: 13:19
[2024-03-15 14:20] LABS: Appearance,Urine Clear (Clear); Bilirubin,Urine Negative (Negative); Blood,Urine Negative (Negative); Color,Urine Yellow; Glucose,Urine (UA) Negative (Negative); Ketones,Urine Negative (Negative); Leukocyte Esterase,Urine Negative (Negative); Nitrite,Urine Negative (Negative); PH, Urine 5.5 (5.0-8.0); Protein,Urine Negative (Negative); Specific Gravity,Urine 1.014 (1.001-1.035); Urobilinogen,Urine <2.0 mg/dL (<2.0)
--- NOTE | 2024-03-15 14:56 | ED ---
Medical Decision Making - Lab Data Lab Results 03/15/24 Range/Units 13:46 Urine Color Yellow Urine Appearance Clear (Clear) Urine pH 5.5 (5.0-8.0) Ur Specific [place] 1.014 (1.001-1.035) Urine Protein Negative (Negative) Urine Glucose (UA) Negative (Negative) Urine Ketones Negative (Negative) Urine Blood Negative (Negative) Urine Nitrite Negative (Negative) Urine Bilirubin Negative (Negative) Urine Urobilinogen <2.0 (<2.0) mg/dL Ur Leukocyte Esterase Negative (Negative) Disposition Clinical Impression: Urinary retention Disposition: HOME SELF-CARE Condition: Good Instructions (If sedation given, give patient instructions): Canseco Catheter Placement and Care (ED) Prescriptions: Tamsulosin [Flomax] 0.4 mg PO DAILY 7 Days #7 cap Is patient prescribed a controlled substance at d/c from ED?: No Referrals: Lane Pérez MD [STAFF PHYSICIAN] - 1-2 days Maritza Calvillo MD [Primary Care Provider] - 1-2 days
[2024-03-15 15:05] VITALS: BP 177/111; PULSE 55; RESP 16
== END 2024-03-15 14:36 | disposition home or self-care (01) ==
LOC: EC 12:54
DX: R33.9 Retention of urine, unspecified (principal)
CPT/HCPCS: 51702; 51798; 81003; 99284

== ENCOUNTER 2024-03-22 05:24 | Emergency (ER) | payer MEDICARE ==
[2024-03-22 05:41] VITALS: TEMP 97.8
--- NOTE | 2024-03-22 06:45 | ED ---
Male Urogenital HPI - General Chief complaint: Urogenital Stated complaint: Unable to Urinate Time Seen by Provider: 03/22/24 05:59 Source: patient, RN notes reviewed Mode of arrival: ambulatory Limitations: no limitations - History of Present Illness Initial comments: This is a 78-year-old male who presents to the emergency department for urinary retention. Patient was evaluated here on 03/15 for urinary retention and had a Canseco catheter placed. He was discharged with the Canseco catheter and a prescription for Flomax was provided. He followed up with his primary care provider yesterday and had the Canseco catheter removed at 11 AM. States that he was initially able to urinate afterwards, but has been unable to go since 1am aside from small dribbles. Reports associated abdominal pressure. Denies any burning with urination or blood in his urine when he was able to go. He was referred to urology and is currently waiting for an appointment. - Related Data Home Medications Medication Instructions Recorded Confirmed RX: Terazosin [Hytrin] 5 mg PO BID 11/15/18 01/28/24 RX: Aspirin EC [Ecotrin Low Dose] 81 mg PO DAILY 01/28/24 01/28/24 Previous Rx's Medication Instructions Recorded RX: Cefdinir [Omnicef] 300 mg PO BID 5 Days #10 cap 02/05/24 Tamsulosin [Flomax] 0.4 mg PO DAILY 7 Days #7 cap 03/15/24 Allergies Allergy/AdvReac Type Severity Reaction Status Date / Time aspirin AdvReac Unknown Verified 03/22/24 05:38 ibuprofen AdvReac Unknown Verified 03/22/24 05:38 Review of Systems ROS Statement: Those systems with pertinent positive or pertinent negative responses have been documented in the HPI. ROS Other: All systems not noted in ROS Statement are negative. Past Medical History Past Medical History: Cancer, Hypertension Additional Past Medical History / Comment(s): MULTIPLE MYELOMA, NEUROPATHY FEET, HANDS AND LEGS, new chemo started 03/20/2024 History of Any Multi-Drug Resistant Organisms: None Reported Past Surgical History: Adenoidectomy, Orthopedic Surgery, Tonsillectomy Additional Past Surgical History / Comment(s): RIGHT HIP REPLACEMENT, LEFT EYE SURGERY FOR SCLERAL BUCKLE, TOOTH IMPLANT Past Psychological History: No Psychological Hx Reported Smoking Status: Never smoker Past Alcohol Use History: None Reported Past Drug Use History: None Reported - Past Family History Father Family Medical History: Cancer (gastric cancer) Mother Family Medical History: Cancer (glioblastoma) Sister(s) Family Medical History: Cancer (melanoma) General Exam Limitations: no limitations General appearance: alert, in no apparent distress Head exam: Present: atraumatic, normocephalic, normal inspection Respiratory exam: Present: normal lung sounds bilaterally. Absent: respiratory distress, wheezes, rales, rhonchi, stridor Cardiovascular Exam: Present: regular rate, normal rhythm, normal heart sounds. Absent: systolic murmur, diastolic murmur, rubs, gallop, clicks GI/Abdominal exam: Present: soft, tenderness (generalized), normal bowel sounds Neurological exam: Present: alert, oriented X3, CN II-XII intact Psychiatric exam: Present: normal affect, normal mood Skin exam: Present: warm, dry, intact, normal color. Absent: rash Course Vital Signs 03/22/24 05:38 Temperature 97.8 F Pulse Rate 117 H Respiratory 18 Rate Blood Pressure 135/90 O2 Sat by Pulse 96 Oximetry Medical Decision Making - Medical Decision Making This is a 78 year old male who presents to the emergency department for urinary retention. Was pt. sent in by a medical professional or institution? @ -No Did you speak to anyone other than the patient for history? @ -No Did you review nursing and triage notes? @ -Yes, and I agree, it is accurate with regards to the patient's symptoms. Were old charts reviewed? @ -No Differential Diagnosis? @ -Differential Urinary Retention: UTI, BPH, ureteral calculus, neurological issue, this is not meant to be an all- inclusive list. EKG interpreted by me (3pts min.)? @ -Not obtained X-rays interpreted by me (1pt min.)? @ -Not obtained CT interpreted by me (1pt min.)? @ -Not obtained U/S interpreted by me (1pt. min.)? @ -Not obtained What testing was considered but not performed? (CT, X-rays, U/S, labs)? Why? @ -None What meds were considered but not given? Why? @ -None Did you discuss the management of the patient with other professionals? @ -No Did you reconcile home meds? @ -No Was smoking cessation discussed for >3mins.? @ -No Was critical care preformed (if so, how long)? @ -No Were there social determinants of health that impacted care today? How? (Homelessness, low income, unemployed, alcoholism, drug addiction, transportation, low edu. Level, literacy, decrease access to med. care, retirement, rehab)? @ -No Was there de-escalation of care discussed even if they declined? (Discuss DNR or withdrawal of care, Hospice)? @ -No What co-morbidities impacted this encounter? (DM, HTN, Smoking, COPD, CAD, Cancer, CVA, Hep., AIDS, mental health diagnosis, sleep apnea, morbid obesity)? @ -None Was patient admitted / discharged? @ -Discharged. Bladder scan performed demonstrating 589 mL of urine and a Canseco catheter was subsequently placed. Patient had improvement in symptoms upon Canseco catheter placement and just under a liter of urine was drained while in the emergency department. Urinalysis negative for signs of infection. Patient discharged home with Canseco catheter in place. He will continue to take the Flomax as prescribed. States that he has a referral pending for urology. Advised follow-up with his primary care provider in the meantime. Undiagnosed new problem with uncertain prognosis? @ -None Drug Therapy requiring intensive monitoring for toxicity (Heparin, Nitro, Insulin, Cardizem)? @ -None Were any procedures done? @ -None Diagnosis/symptom? @ -Urinary retention Acute, or Chronic, or Acute on Chronic? @ -Acute Uncomplicated (without systemic symptoms) or Complicated (systemic symptoms)? @ -Uncomplicated Side effects of treatment? @ -None Exacerbation, Progression, or Severe Exacerbation] @ -Not applicable Poses a threat to life or bodily function? @ -No Return precautions reviewed in depth, the patient is instructed to return to the emergency department with any new, worsening, or concerning symptoms. Patient verbalized understanding. This case was discussed in detail with the attending ED physician, Dr. Daly. Presentation, findings, and treatment plan discussed in detail as well. - Lab Data Lab Results 03/22/24 Range/Units 06:56 Urine Color Colorless Urine Appearance Clear (Clear) Urine pH 5.0 (5.0-8.0) Ur Specific [place] 1.009 (1.001-1.035) Urine Protein Negative (Negative) Urine Glucose (UA) Negative (Negative) Urine Ketones Negative (Negative) Urine Blood Small H (Negative) Urine Nitrite Negative (Negative) Urine Bilirubin Negative (Negative) Urine Urobilinogen <2.0 (<2.0) mg/dL Ur Leukocyte Esterase Negative (Negative) Urine RBC 3 (0-5) /hpf Urine WBC 1 (0-5) /hpf Hyaline Casts 1 (0-2) /lpf Urine Mucus Rare H (None) /hpf Disposition Clinical Impression: Urinary retention Disposition: HOME SELF-CARE Instructions (If sedation given, give patient instructions): Urinary Retention in Men (ED), Canseco Catheter Placement and Care (ED) Additional Instructions: Return to the emergency department with any new, worsening, or concerning symptoms. Continue to take the Flomax as prescribed. Follow up with your primary care provider in 1-2 days. Is patient prescribed a controlled substance at d/c from ED?: No Referrals: Maritza Calvillo MD [Primary Care Provider] - 1-2 days Time of Disposition: 07:30
[2024-03-22 07:27] LABS: Appearance,Urine Clear (Clear); Bilirubin,Urine Negative (Negative); Blood,Urine Small (Negative); Color,Urine Colorless; Glucose,Urine (UA) Negative (Negative); Hyaline Casts,Urine 1 /lpf (0-2); Ketones,Urine Negative (Negative); Leukocyte Esterase,Urine Negative (Negative); Mucus,Urine Rare /hpf; Nitrite,Urine Negative (Negative); Protein,Urine Negative (Negative); RBC,Urine 3 /hpf (0-5); Specific Gravity,Urine 1.009 (1.001-1.035); Urobilinogen,Urine <2.0 mg/dL (<2.0); WBC,Urine 1 /hpf (0-5)
[2024-03-22 08:28] VITALS: BP 128/76; PULSE 84; RESP 17
== END 2024-03-22 08:32 | disposition home or self-care (01) ==
LOC: EC 05:24
DX: R33.9 Retention of urine, unspecified (principal); Z88.6 Allergy status to analgesic agent
CPT/HCPCS: 51702; 51798; 81001; 99283

== ENCOUNTER 2024-06-10 10:39 | Day surgery (SDC) | payer MEDICARE ==
[2024-06-10 11:00] VITALS: BP 149/76; PULSE 104; RESP 18; TEMP 97.3
[2024-06-10 11:23] LABS: African American GFR (CKD) >90 (>60 ml/min/1.73 sqM); Blood Urea Nitrogen 14 mg/dL (9-20); Non-African American GFR(CKD) 85 (>60 ml/min/1.73 sqM)
== END 2024-06-10 13:51 | disposition home or self-care (01) ==
LOC: CATHCVL 10:39
PROVIDERS: ATTEND Internal Medicine Hematology & Oncology
DX: C91.01 Acute lymphoblastic leukemia, in remission (principal)
CPT/HCPCS: 36573; 82565; 84520

== ENCOUNTER 2024-08-08 19:15 | Emergency (ER) | payer MEDICARE ==
[2024-08-08 21:42] LABS: ALT 30 U/L (4-49); AST 21 U/L (17-59); African American GFR (CKD) >90 (>60 ml/min/1.73 sqM); Albumin 2.9 g/dL (3.5-5.0); Alkaline Phosphatase 63 U/L (38-126); Anion Gap 4 mmol/L; Blood Urea Nitrogen 20 mg/dL (9-20); Calcium 8.2 mg/dL (8.4-10.2); Carbon Dioxide 25 mmol/L (22-30); Chloride 109 mmol/L (98-107); Glucose 103 mg/dL (74-99); Non-African American GFR(CKD) 87 (>60 ml/min/1.73 sqM); Potassium 3.8 mmol/L (3.5-5.1); Sodium 138 mmol/L (137-145); Total Bilirubin 1.9 mg/dL (0.2-1.3); Total Protein 4.8 g/dL (6.3-8.2)
[2024-08-08 21:56] LABS: Anisocytosis Slight; HCT 20.8 % (39.0-53.0); MCH 34.5 pg (25.0-35.0); MCHC 33.1 g/dL (31.0-37.0); MCV 104.2 fL (80.0-100.0); Macrocytosis Moderate; Mean Platelet Volume 8.3; RDW 17.8 % (11.5-15.5)
--- NOTE | 2024-08-08 22:16 | ED ---
Recheck HPI - General Source: patient, RN notes reviewed Mode of arrival: wheelchair <Brooke Crawford - Last Filed: 08/09/24 00:44> <Areli Henning - Last Filed: 08/22/24 12:26> - General Chief Complaint: Recheck/Abnormal Lab/Rx Stated Complaint: Blood infusion-sent by PCP Time Seen by Provider: 08/08/24 20:00 - History of Present Illness Initial Comments: 79-year-old male with history of leukemia sent by Dr. Jovel for low platelets. States he was seen today to receive "injection in his abdomen that increases his white blood cells" and lab work was taken at this time. Dr. Jovel called him later in the day to tell him that his platelet count is 3 and he must go to the ER for platelet transfusion. Patient has had several platelet transfusions on an outpatient basis. Patient does admit he is feeling fatigued but denies any bleeding of the gums, lightheadedness, chest pain, shortness of breath. Patient is undergoing chemotherapy for leukemia daily at [facility]. Patient does have PICC line. (Brooke Crawford) - Related Data Home Medications Medication Instructions Recorded Confirmed Terazosin [Hytrin] 5 mg PO BID 11/15/18 07/17/24 Magnesium Oxide [Magnesium] 2 tab PO BID 07/17/24 07/17/24 Metoprolol Tartrate [Lopressor] 1 tab PO BID 07/17/24 07/17/24 Previous Rx's Medication Instructions Recorded Cefdinir [Omnicef] 300 mg PO BID 5 Days #10 cap 02/05/24 Tamsulosin [Flomax] 0.4 mg PO DAILY 7 Days #7 cap 03/15/24 Allergies Allergy/AdvReac Type Severity Reaction Status Date / Time aspirin AdvReac Unknown Verified 08/08/24 19:22 ibuprofen AdvReac Unknown Verified 08/08/24 19:22 sulfamethoxazole AdvReac Unknown Verified 08/08/24 19:22 [From Bactrim] trimethoprim [From Bactrim] AdvReac Unknown Verified 08/08/24 19:22 Review of Systems ROS Other: All systems not noted in ROS Statement are negative. <Brooke Crawford - Last Filed: 08/09/24 00:44> ROS Other: All systems not noted in ROS Statement are negative. <Areli Henning - Last Filed: 08/22/24 12:26> ROS Statement: Those systems with pertinent positive or pertinent negative responses have been documented in the HPI. Past Medical History Past Medical History: Cancer, Hypertension Additional Past Medical History / Comment(s): MULTIPLE MYELOMA, NEUROPATHY FEET, HANDS AND LEGS, new chemo started 03/20/2024, Acute Lymphocytic Leukemia History of Any Multi-Drug Resistant Organisms: None Reported Past Surgical History: Adenoidectomy, Orthopedic Surgery, Tonsillectomy Additional Past Surgical History / Comment(s): RIGHT HIP REPLACEMENT, LEFT EYE SURGERY FOR SCLERAL BUCKLE, TOOTH IMPLANT Past Psychological History: No Psychological Hx Reported Smoking Status: Former smoker Past Alcohol Use History: None Reported Past Drug Use History: Marijuana - Past Family History Father Family Medical History: Cancer Mother Family Medical History: Cancer Sister(s) Family Medical History: Cancer <Brooke Crawford - Last Filed: 08/09/24 00:44> General Exam General appearance: alert, in no apparent distress Head exam: Present: atraumatic, normocephalic, normal inspection Eye exam: Present: normal appearance, PERRL, EOMI. Absent: scleral icterus, conjunctival injection, periorbital swelling ENT exam: Present: normal exam, mucous membranes moist Respiratory exam: Present: normal lung sounds bilaterally. Absent: respiratory distress, wheezes, rales, rhonchi, stridor Cardiovascular Exam: Present: regular rate, normal rhythm, normal heart sounds. Absent: systolic murmur, diastolic murmur, rubs, gallop, clicks Neurological exam: Present: alert, oriented X3 Psychiatric exam: Present: normal affect, normal mood Skin exam: Present: warm, dry, intact, normal color. Absent: rash <Brooke Crawford - Last Filed: 08/09/24 00:44> Course Vital Signs 08/08/24 08/08/24 08/09/24 19:19 23:32 01:53 Temperature 98.0 F 98.5 F Pulse Rate 105 H 82 71 Respiratory 18 18 17 Rate Blood Pressure 144/70 111/56 153/81 O2 Sat by Pulse 98 98 97 Oximetry 08/09/24 08/09/24 08/09/24 02:06 02:26 04:39 Temperature 98.2 F 98.3 F 98.1 F Pulse Rate 69 69 71 Respiratory 17 17 18 Rate Blood Pressure 154/77 148/83 143/82 O2 Sat by Pulse 97 97 98 Oximetry 08/09/24 08/09/24 08/09/24 05:24 05:44 07:41 Temperature 97.7 F 98.3 F 98.2 F Pulse Rate 68 70 74 Respiratory 17 17 17 Rate Blood Pressure 167/72 155/87 153/75 O2 Sat by Pulse 99 98 Oximetry 08/09/24 07:43 Temperature 98.2 F Pulse Rate 74 Respiratory 17 Rate Blood Pressure 153/75 O2 Sat by Pulse Oximetry Medical Decision Making - Lab Data Result diagrams: 08/08/24 20:37 08/08/24 20:37 <Brooke Crawford - Last Filed: 08/09/24 00:44> - Lab Data Result diagrams: 08/08/24 20:37 08/08/24 20:37 <Areli Henning - Last Filed: 08/22/24 12:26> - Medical Decision Making Was pt. sent in by a medical professional or institution (, PA, DIGITAL STRATEGY MANAGER, urgent care, hospital, or senior care...) When possible be specific @ -Sent by Dr. Jovel for low platelets Did you speak to anyone other than the patient for history (EMS, parent, family, police, friend...)? What history was obtained from this source @ -[No] Did you review nursing and triage notes (agree or disagree)? Why? @ -[I reviewed and agree with nursing and triage notes] Were old charts reviewed (outside hosp., previous admission, EMS record, old EKG, old radiological studies, urgent care reports/EKG's, senior care records)? Report findings @ -[No old charts were reviewed] Differential Diagnosis (chest pain, altered mental status, abdominal pain women, abdominal pain men, vaginal bleeding, weakness, fever, dyspnea, syncope, headache, dizziness, GI bleed, back pain, seizure, CVA, palpatations, mental health, musculoskeletal)? @ -Anemia, leukopenia, thrombocytopenia EKG interpreted by me (3pts min.). @ -None X-rays interpreted by me (1pt min.). @ -[None done] CT interpreted by me (1pt min.). @ -[None done] U/S interpreted by me (1pt. min.). @ -[None done] What testing was considered but not performed or refused? (CT, X-rays, U/S, labs)? Why? @ -[None] What meds were considered but not given or refused? Why? @ -[None] Did you discuss the management of the patient with other professionals (professionals i.e. , PA, DIGITAL STRATEGY MANAGER, lab, RT, psych nurse, clinical social work therapist, long term care phlebotomist, teacher, legal officer, caser up)? Give summary @ -I spoke with Dr. Jovel oncologist who recommends transfusing with 1 unit of p latelets and blood and discharge with close follow-up on Sunday Was smoking cessation discussed for >3mins.? @ -[No] Was critical care preformed (if so, how long)? @ -[No] Were there social determinants of health that impacted care today? How? (Homelessness, low income, unemployed, alcoholism, drug addiction, transportation, low edu. Level, literacy, decrease access to med. care, penitentiary, rehab)? @ -[No] Was there de-escalation of care discussed even if they declined (Discuss DNR or withdrawal of care, Hospice)? DNR status @ -[No] What co-morbidities impacted this encounter? (DM, HTN, Smoking, COPD, CAD, Cancer, CVA, ARF, Chemo, Hep., AIDS, mental health diagnosis, sleep apnea, morbid obesity)? @ -[None] Was patient admitted / discharged? Hospital course, mention meds given and route, prescriptions, significant lab abnormalities, going to OR and other pertinent info. @ -This is a 79-year-old male with history of active leukemia sent by Dr. Jovel for low platelets. Patient does admit fatigue however denies bleeding of the gums, lightheadedness, chest pain, shortness of breath. Patient is afebrile. Lab work remarkable for white blood cell count 0.4, hemoglobin 6.9, and platelet count 4. Patient was given 1 unit platelets and 1 unit blood. I spoke with Dr. Huang oncologist who recommends discharge after transfusions with close follow-up on Sunday. Patient is agreeable to this plan. Case was signed out to Dr. Henning pending completion of transfusions. (Brooke Crawford) Pt signed out to myself pending completion of blood product transfusions. Pt to be discharged at completion of transfusions. Patient completed transfusions. No acute events were brought to my attention during remainder of ED stay. Pt discharged by RN prior to my reassessment. Vital signs stable at time of discharge. In my medical judgment there is currently no evidence of an immediate life- threatening or surgical condition. Discharge is therefore indicated at this time. Undiagnosed new problem with uncertain prognosis? @ -No Drug Therapy requiring intensive monitoring for toxicity (Heparin, Nitro, Insulin, Cardizem)? @ -No Were any procedures done? @ -No Diagnosis/symptom? @ Anemia, thrombocytopenia Acute, or Chronic, or Acute on Chronic? @ acute on chronic Uncomplicated (without systemic symptoms) or Complicated (systemic symptoms)? @ uncomplicated Exacerbation, Progression, or Severe Exacerbation? @ -No Poses a threat to life or bodily function? How? (Chest pain, [place], [place], pneumonia, PE, COPD, DKA, ARF, appy, cholecystitis, CVA, Diverticulitis, Homicidal, Chavez icidal, threat to staff... and all critical care pts) @ -No (Areli Henning) - Lab Data Lab Results 08/08/24 08/08/24 08/08/24 Range/Units 20:37 20:37 20:37 WBC 0.4 L* (3.8-10.6) k/uL RBC 2.00 L (4.30-5.90) m/uL Hgb 6.9 L* (13.0-17.5) gm/dL Hct 20.8 L (39.0-53.0) % MCV 104.2 H (80.0-100.0) fL MCH 34.5 (25.0-35.0) pg MCHC 33.1 (31.0-37.0) g/dL RDW 17.8 H (11.5-15.5) % Plt Count 4 L* (150-450) k/uL MPV 8.3 Neutrophils # DIGITAL STRATEGY MANAGER Manual Slide Review Performed Anisocytosis Slight Macrocytosis Moderate Sodium 138 (137-145) mmol/L Potassium 3.8 (3.5-5.1) mmol/L Chloride 109 H (98-107) mmol/L Carbon Dioxide 25 (22-30) mmol/L Anion Gap 4 mmol/L BUN 20 (9-20) mg/dL Creatinine 0.77 (0.66-1.25) mg/dL Est GFR (CKD-EPI)AfAm >90 (>60 ml/min/1.73 sqM) Est GFR (CKD-EPI)NonAf 87 (>60 ml/min/1.73 sqM) Glucose 103 H (74-99) mg/dL Calcium 8.2 L (8.4-10.2) mg/dL Total Bilirubin 1.9 H (0.2-1.3) mg/dL AST 21 (17-59) U/L ALT 30 (4-49) U/L Alkaline Phosphatase 63 (38-126) U/L Total Protein 4.8 L (6.3-8.2) g/dL Albumin 2.9 L (3.5-5.0) g/dL Blood Type O Positive Blood Type Recheck O Pos Bld Type Recheck Status No Antibody Screen NEGATIVE Crossmatch See Detail Transfuse Platelets Spec Expiration Date 08/11/2024 - 233608/09/24 Range/Units 00:33 WBC (3.8-10.6) k/uL RBC (4.30-5.90) m/uL Hgb (13.0-17.5) gm/dL Hct (39.0-53.0) % MCV (80.0-100.0) fL MCH (25.0-35.0) pg MCHC (31.0-37.0) g/dL RDW (11.5-15.5) % Plt Count (150-450) k/uL MPV Neutrophils # Manual Slide Review Anisocytosis Macrocytosis Sodium (137-145) mmol/L Potassium (3.5-5.1) mmol/L Chloride (98-107) mmol/L Carbon Dioxide (22-30) mmol/L Anion Gap mmol/L BUN (9-20) mg/dL Creatinine (0.66-1.25) mg/dL Est GFR (CKD-EPI)AfAm (>60 ml/min/1.73 sqM) Est GFR (CKD-EPI)NonAf (>60 ml/min/1.73 sqM) Glucose (74-99) mg/dL Calcium (8.4-10.2) mg/dL Total Bilirubin (0.2-1.3) mg/dL AST (17-59) U/L ALT (4-49) U/L Alkaline Phosphatase (38-126) U/L Total Protein (6.3-8.2) g/dL Albumin (3.5-5.0) g/dL Blood Type Blood Type Recheck Bld Type Recheck Status Antibody Screen Crossmatch Transfuse Platelets 08/09/2024 Spec Expiration Date Disposition <Brooke Crawford - Last Filed: 08/09/24 00:44> Is patient prescribed a controlled substance at d/c from ED?: No <Areli Henning - Last Filed: 08/22/24 12:26> Clinical Impression: Anemia, Thrombocytopenia Disposition: HOME SELF-CARE Condition: Stable Referrals: Maritza Calvillo MD [Primary Care Provider] - 1-2 days
[2024-08-08 22:23] LABS: HGB 6.9 gm/dL (13.0-17.5)
[2024-08-08 22:28] LABS: WBC 0.4 k/uL (3.8-10.6)
[2024-08-08 22:30] LABS: Platelet Count 4 k/uL (150-450)
[2024-08-09 05:26] VITALS: RESP 17
[2024-08-09 07:45] VITALS: BP 153/75; PULSE 74; TEMP 98.2
== END 2024-08-09 07:45 | disposition home or self-care (01) ==
LOC: EC 19:15
DX: D64.9 Anemia, unspecified (principal); D69.6 Thrombocytopenia, unspecified; Z87.891 Personal history of nicotine dependence; Z88.6 Allergy status to analgesic agent; Z88.2 Allergy status to sulfonamides; Z88.8 Allergy status to other drugs, medicaments and biological substances
CPT/HCPCS: 36415; 86900; 86901; 80053; 85025; 86850; 86920; 99284; 36430; P9016; P9073

== ENCOUNTER → 2024-09-18 | Day surgery (SDC) | payer MEDICARE | LOC: CATHCVL 08:25 | PROVIDERS: ATTEND Internal Medicine Hematology & Oncology | DX: C91.01 Acute lymphoblastic leukemia, in remission (principal); D68.9 Coagulation defect, unspecified; C90.00 Multiple myeloma not having achieved remission; R94.5 Abnormal results of liver function studies; D51.9 Vitamin B12 deficiency anemia, unspecified; G62.0 Drug-induced polyneuropathy; Z88.2 Allergy status to sulfonamides; Z79.899 Other long term (current) drug therapy | CPT/HCPCS: 36573 ==